=== PATIENT | female | born 1970 | race Caucasian/White ===

== ENCOUNTER 2016-06-27 06:24 | Emergency (ER) | payer OTHER ==
[~2016-06-27] VITALS: Ht 180.3 cm; Wt 78.5 kg
[~2016-06-27 06:24] MED LIST: BCPILLS PO; CALC-279 PO; CHOL100010 PO; CYAN500T PO; FERR1TAB23 PO; LORA-741 PO; NORE1CHW11 PO; OMEG12006 PO; PARO1TAB27 PO; SUCR1TAB29 PO
[2016-06-27 06:30] VITALS: Ht 180.3 cm; Wt 78.5 kg
[2016-06-27] MEDS ORDERED: SODIUM CHLORIDE 0.9% 1000ML 1,000 ML IV STA (06:48)
[2016-06-27] MEDS ORDERED: ONDANSETRON INJ 2 MG/ML 2 ML VIAL IV STA ×2 (06:48→07:24)
[2016-06-27] MEDS ORDERED: SODIUM CHLORIDE 0.9% 1000ML 1,000 ML IV ONE (06:48)
--- NOTE | 2016-06-27 06:49 | EMERGENCY ROOM VISIT NOTE ---
History Report prepared by Cyndiibfrancisco: Charo Baltazar Under the Supervision of: Dr. Salty Gonzales M.D. First contact with patient: 06:38 Chief Complaint: VOMITING Stated Complaint: FLU SYMPTOMS,ACID REFLUX,DEHYDRATION History of Present Illness The patient is a 46 year old female who presents to the Emergency Room with complaints of persistent vomiting that started yesterday. She reports she left work yesterday afternoon around 1630 because she was nauseous. She started vomiting when she got home and also experienced "3 large bowel movements". She reports she didn't eat much yesterday but notes she there was "some red" in her vomit. This morning she dry heaved "several times" and experienced diarrhea. She also complains of a headache, abdominal pain and generalized weakness. She describes her abdominal pain as feeling like "acid reflux", which she has a history of. The patient denies any cough, cold symptoms, chest pain or shortness of breath. She lives alone and denies any recent sick contacts or chance of being . The patient admits to a history of anxiety and states being sick makes her feel increasingly anxious. Source of History: patient Onset: yesterday afternoon Position: abdomen Timing: other (persistent) Associated Symptoms: + abdominal pain, + diarrhea, + nausea, + weakness, No SOB, No chest pain, No cough (cough or cold symptoms) Review of Systems See HPI for pertinent positives & negatives. A total of 10 systems reviewed and were otherwise negative. Past Medical & Surgical Medical Problems: (1) Anxiety (2) Asthma (3) Food poisoning (4) History of panic attacks (5) Kidney stone (6) Reflux Old medical records were reviewed. Nurse's notes were reviewed and I agree with. Family History Diabetes mellitus FH: cancer FH: heart disease FHx: gallbladder disease Hypertension Kidney disease Kidney stones Social History Smoking Status: Never Smoker Alcohol Use: none Drug Use: none Marital Status: single Housing Status: lives alone Occupation Status: employed Current/Historical Medications Scheduled Calcium Carbonate-Vitamin D (Oscal 500/200 D-3), 1 TAB PO DAILY Cholecalciferol (Vitamin D3), 1 TAB PO BID Esomeprazole Magnesium (Nexium), 20 MG PO DAILY Ferrous Sulfate (Iron), 325 MG PO BID Multiple Vitamins W/ Minerals (Womens One Daily), 1 TAB PO DAILY Norethin Acet & Estrad-Fe (Minastrin 24 Fe), 1 TAB PO DAILY Alba-3 Fatty Acids (Alba 3), 1 TAB PO DAILY Ondasetron Odt (Zofran Odt), 4 MG SL Q6H Paroxetine (Paxil), 20 MG PO BID Sucralfate (Carafate), 1 GM PO DAILY Allergies Coded Allergies: Morphine (Verified Allergy, Intermediate, HIVES WITH DOSE FROM ED ON 04/18, 06/27/16) Citalopram (Verified Allergy, Unknown, GI UPSET, 06/27/16) Codeine (Verified Allergy, Unknown, SHAKES AND CHEST PAIN, 06/27/16) Opioid Analgesics (Verified Allergy, Unknown, "OPIATE AGONIST" ALLERGY, 06/27/16) Azithromycin (Verified Adverse Reaction, Unknown, "BELLY PAIN AND FELT WEIRD", 06/27/16) Levofloxacin (Verified Adverse Reaction, Unknown, "FELT WEIRD AND PAIN IN THE LEGS", 06/27/16) Physical Exam Vital Signs Date Time Temp Pulse Resp B/P Pulse Ox O2 Delivery O2 Flow Rate FiO2 06/27/16 11:51 81 18 151/78 96 06/27/16 10:48 87 18 131/75 96 Room Air 06/27/16 09:38 98 119/64 99 Room Air 06/27/16 07:52 84 18 133/77 98 Room Air 06/27/16 06:30 89 20 160/81 94 Room Air Physical Exam General: Moderately ill-appearing middle aged female, complaining of feeling nauseated and vomiting in a bucket on exam Breathing comfortably on room air. Normal speech HEENT: Normal cephalic atraumatic. Pupils are equal round and reactive to light. Extraocular movements are intact. Oropharynx is pink with moist mucous membranes. No swelling of the mouth lips or tongue. Neck: Supple with a midline trachea. No meningeal signs or stiffness, no JVD or bruits. No Stridor. Chest: Clear to auscultation bilaterally. No wheezes or rhonchi. No increased work of breathing. Heart: regular rate and rhythm. Abdomen: Soft nontender, nondistended without rebound guarding or rigidity. Extremities: No cyanosis clubbing or edema. No calf tenderness or assymetry Spine/Back. Non tender to palpation. No CVA tenderness Skin: Good turgor without rashes. Neurologic exam: Cranial nerves two through 12 are intact. Motor and sensation are intact and symmetrical throughout. Medical Decision & Procedures Laboratory Results 06/27/16 07:00 Red Blood Count 4.73, Mean Corpuscular Volume 89.4, Mean Corpuscular Hemoglobin 31.7, Mean Corpuscular Hemoglobin Concent 35.5, Mean Platelet Volume 10.9, Neutrophils (%) (Auto) 77.6, Lymphocytes (%) (Auto) 14.8, Monocytes (%) (Auto) 7.3, Eosinophils (%) (Auto) 0.0, Basophils (%) (Auto) 0.1, Neutrophils # (Auto) 6.80, Lymphocytes # (Auto) 1.30, Monocytes # (Auto) 0.64, Eosinophils # (Auto) 0.00, Basophils # (Auto) 0.01 06/27/16 07:00 Test 06/27/16 07:00 White Blood Count 8.77 K/uL (4.8-10.8) Red Blood Count 4.73 M/uL (4.2-5.4) Hemoglobin 15.0 g/dL (12.0-16.0) Hematocrit 42.3 % (37-47) Mean Corpuscular Volume 89.4 fL (80-100) Mean Corpuscular Hemoglobin 31.7 pg (25-34) Mean Corpuscular Hemoglobin Concent 35.5 g/dl (32-36) Platelet Count 277 K/uL (130-400) Mean Platelet Volume 10.9 fL (7.4-10.4) Neutrophils (%) (Auto) 77.6 % Lymphocytes (%) (Auto) 14.8 % Monocytes (%) (Auto) 7.3 % Eosinophils (%) (Auto) 0.0 % Basophils (%) (Auto) 0.1 % Neutrophils # (Auto) 6.80 K/uL (1.4-6.5) Lymphocytes # (Auto) 1.30 K/uL (1.2-3.4) Monocytes # (Auto) 0.64 K/uL (0.11-0.59) Eosinophils # (Auto) 0.00 K/uL (0-0.5) Basophils # (Auto) 0.01 K/uL (0-0.2) RDW Standard Deviation 40.2 fL (36.4-46.3) RDW Coefficient of Variation 12.3 % (11.5-14.5) Immature Granulocyte % (Auto) 0.2 % Immature Granulocyte # (Auto) 0.02 K/uL (0.00-0.02) Anion Gap 13.0 mmol/L (3-11) Est Creatinine Clear Calc Drug Dose 100.2 ml/min Estimated GFR () 103.9 Estimated GFR (Non- 89.7 BUN/Creatinine Ratio 11.3 (10-20) Calcium Level 8.5 mg/dl (8.5-10.1) Total Bilirubin 0.5 mg/dl (0.2-1) Direct Bilirubin 0.1 mg/dl (0-0.2) Aspartate Amino Transf (AST/SGOT) 20 U/L (15-37) Alanine Aminotransferase (ALT/SGPT) 27 U/L (12-78) Alkaline Phosphatase 88 U/L (45-117) Total Protein 7.6 gm/dl (6.4-8.2) Albumin 3.6 gm/dl (3.4-5.0) Lipase 108 U/L (73-393) Human Chorionic Gonadotropin, Qual NEG (NEG) Laboratory studies as stated above per my review. Medications Administered Medications (Trade) Dose Ordered Sig/Gisel Route Start Time Stop Time Status Last Admin Dose Admin Sodium Chloride 1,000 ml @ 999 mls/hr Q1H1M STAT IV 06/27/16 06:48 06/27/16 07:48 DC 06/27/16 07:02 999 MLS/HR Sodium Chloride (Nss 1000ml) 1,000 ml @ 200 mls/hr Q5H ONCE IV 06/27/16 06:48 06/27/16 11:47 DC 06/27/16 07:52 200 MLS/HR Ondansetron HCl (Zofran Inj) 4 mg NOW STAT IV 06/27/16 06:48 06/27/16 06:50 DC 06/27/16 07:02 4 MG Ondansetron HCl (Zofran Inj) 4 mg NOW STAT IV 06/27/16 07:24 06/27/16 07:25 DC 06/27/16 07:30 4 MG Potassium Chloride (Klor-Con M10) 40 meq NOW STAT PO 06/27/16 11:02 06/27/16 11:04 DC 06/27/16 11:19 40 MEQ Ondansetron HCl (ZOFRAN ODT 4MG Home Pack) 1 [facility] UD ONCE PO 06/27/16 11:15 06/27/16 11:16 DC 06/27/16 11:20 1 [facility] ED Course 0639: Past medical records reviewed. The patient was evaluated in room B8, and a complete history and physical examination were performed. 0648: Zofran 4 mg IV, NSS 1000 ml @ 200 mls/hr IV, NSS 1000 ml @ 999 mls/hr IV. 0724: Zofran 4 mg IV. 0750: I reevaluated the patient. She is feeling anxious and just had an episode of diarrhea. 0825: I reevaluated the patient. She is feeling a little better. 1055: I reevaluated the patient. She is feeling much better. I discussed her results and discharge instructions and she verbalized complete understanding or agreement. 1102: Potassium Chloride 40 meq PO. 1115: Zofran 4 mg 1 home pack PO. Medical Decision Differential Diagnoses: Dehydration, viral illness, gastroenteritis, infection, electrolyte or metabolic abnormalities. This patient comes in as described above. She has had vomiting and diarrhea does not feel well. On exam, she is holding an emesis been and has intermittent vomiting. IV access was established and she was hydrated with a 1 L IV normal saline bolus and 200 mL an hour IV normal saline. She was given Zofran 4 mg IV. Multiple blood testing was obtained. She was reassessed frequently. She did feel better after receiving the fluids and was able to keep down oral fluids. Potassium is mildly low and she was repleted with by mouth potassium. she is encouraged to increase her potassium in her diet. she is to rest and drink plenty of fluids slowly advance her diet. Return if : worsening of symptoms, any new problems or concerns her abdomen remained benign. She's follow-up with regular doctor 1-2 days recheck. She's been with the plan and discharged to home. Impression Primary Impression: Nausea, vomiting, and diarrhea Additional Impression: Gastroenteritis Scribe Attestation The scribe's documentation has been prepared under my direction and personally reviewed by me in its entirety. I confirm that the note above accurately reflects all work, treatment, procedures, and medical decision making performed by me. Departure Information Dispostion Home / Self-Care Prescriptions Ondasetron Odt (ZOFRAN ODT) 4 Mg Tab 4 MG SL Q6H for Nausea, #10 TAB Prov: Salty Gonzales M.D. 06/27/16 Referrals Dorothea Mccoy DO (PCP) Patient Instructions My [facility] Additional Instructions Rest. Drink plenty of fluids. Mild diet. Slowly advance your diet. Use Zofran 4 mg under the tongue every 6 hours if needed for nausea or vomiting May use [id number] Imodium if needed for diarrhea. Do not exceed the over -the-counter dosages Increase her dietary potassium. Eat a few extra bananas Return if: Worsening of symptoms, not tolerating fluids, fever chills, any new problems or concerns. Problem Qualifiers
[2016-06-27 07:12] LABS: BASO % 0.1 %; BASO ABS # 0.01 K/uL (0-0.2); COMPLETE YES; HEMATOCRIT 42.3 % (37-47); IG% 0.2 %; LYMPH % 14.8 %; MEAN CELL VOLUME 89.4 fL (80-100); MEAN CORPUSCULAR HEMOGLOBIN 31.7 pg (25-34); MEAN CORPUSCULAR HGB CONC 35.5 g/dl (32-36); MEAN PLATELET VOLUME 10.9 fL (7.4-10.4); MONO % 7.3 %; NEUT % 77.6 %; PLATELET COUNT 277 K/uL (130-400); RED BLOOD COUNT 4.73 M/uL (4.2-5.4); WHITE BLOOD COUNT 8.77 K/uL (4.8-10.8)
[2016-06-27] MEDS ORDERED: MULT-240 PO (07:17)
[2016-06-27] MEDS ORDERED: CHOL1000 PO (07:17)
[2016-06-27] MEDS ORDERED: CALC200T PO (07:17)
[2016-06-27] MEDS ORDERED: ESOM20CA PO (07:17)
[2016-06-27 07:34] LABS: PREG INTERNAL NEGATIVE QC NEG CLEAR BACKGROUND; PREG INTERNAL POSITIVE QC POS CONTROL LINE
[2016-06-27 07:37] LABS: BUN/CREATININE RATIO 11.3 (10-20); CALCIUM 8.5 mg/dl (8.5-10.1); CREATININE 0.8 mg/dl (0.60-1.20); POTASSIUM 2.9 mmol/L (3.5-5.1)
[2016-06-27] MEDS ORDERED: POTASSIUM CHLORIDE 10 MEQ TABCR PO STA (11:02)
[2016-06-27] MEDS ORDERED: ONDA4TAB10 SL (11:05)
[2016-06-27] MEDS ORDERED: ONDANSETRON HOME PACK 4MG OD TAB PO ONE (11:15)
[2016-06-27 11:51] VITALS: BP 151/78; PULSE 81; O2SAT 96
== END 2016-06-27 11:52 | disposition home or self-care (01) ==
LOC: C.EDB 06:26
DX: R11.2 Nausea with vomiting, unspecified (principal); K52.9 Noninfective gastroenteritis and colitis, unspecified; J45.909 Unspecified asthma, uncomplicated

== ENCOUNTER → 2016-07-13 | Outpatient (CLI) | payer OTHER ==
[~2016-07-13] MED LIST changes: -BCPILLS PO; -CALC-279 PO; +CALC200T PO; +CHOL1000 PO; -CHOL100010 PO; -CYAN500T PO; +ESOM20CA PO; -LORA-741 PO; +MULT-240 PO; +ONDA4TAB10 SL
[2016-07-13 09:49] LABS: BLOOD UREA NITROGEN 9 mg/dl (7-18); BUN/CREATININE RATIO 12.3 (10-20); CALCIUM 9.3 mg/dl (8.5-10.1); CARBON DIOXIDE 30 mmol/L (21-32); CHLORIDE 103 mmol/L (98-107); CREATININE 0.74 mg/dl (0.60-1.20); GLUCOSE 94 mg/dl (70-99); MAGNESIUM 2.1 mg/dl (1.8-2.4); SODIUM 142 mmol/L (136-145)
[2016-07-13 10:13] LABS: CHOLESTEROL/HDL RATIO 5.5
== END | disposition home or self-care (01) ==
LOC: C.LAB1850 06:51
PROVIDERS: ATTEND Family Medicine
DX: F32.9 Major depressive disorder, single episode, unspecified (principal); F41.9 Anxiety disorder, unspecified; K21.0 Gastro-esophageal reflux disease with esophagitis; E55.9 Vitamin D deficiency, unspecified; E78.00 Pure hypercholesterolemia, unspecified; E53.8 Deficiency of other specified B group vitamins

== ENCOUNTER → 2016-07-29 | Outpatient (CLI) | payer OTHER ==
--- NOTE | 2016-07-30 13:16 | MAMMOGRAPHY REPORT ---
BILATERAL DIGITAL SCREENING MAMMOGRAM TOMOSYNTHESIS WITH CAD: 07/29/2016 CLINICAL HISTORY: Routine screening examination. TECHNIQUE: Breast tomosynthesis in addition to standard 2D mammography was performed. Current study was also evaluated with a Computer Aided Detection (CAD) system. COMPARISON: Comparison is made to exams dated: 07/29/2015 mammogram, 07/26/2014 mammogram, 06/26/2013 roma mogram, and 06/24/2012 mammogram - [facility]. BREAST COMPOSITION: There are scattered areas of fibroglandular density in both breasts. FINDINGS: The parenchymal pattern is similar to prior exams with stable asymmetry in the subareolar right breast. No new suspicious mass, architectural distortion or cluster of microcalcifications is seen. IMPRESSION: ACR BI-RADS CATEGORY 1: NEGATIVE There is no mammographic evidence of malignancy. A 1 year screening mammogram is recommended. The p atient will receive written notification of the results. Approximately 10% of breast cancers are not detected with mammography. A negative mammographic repor t should not delay biopsy if a clinically suggestive mass is present. Aurea Cardoso M.D. ay/:07/29/2016 16:09:26 Custom Tailor Apprentice: Cyndi PRASAD(R)(M), [facility] letter sent: Normal 1/2 BI-RADS Code: ACR BI-RADS Category 1: Negative
== END | disposition home or self-care (01) ==
LOC: C.MAMM 15:35
PROVIDERS: ATTEND Obstetrics & Gynecology
DX: Z12.31 Encounter for screening mammogram for malignant neoplasm of breast (principal)

== ENCOUNTER → 2016-08-19 | Outpatient (CLI) | payer OTHER | END | disposition home or self-care (01) | LOC: C.PAPS 11:40 | PROVIDERS: ATTEND Obstetrics & Gynecology | DX: Z12.4 Encounter for screening for malignant neoplasm of cervix (principal); R87.616 Satisfactory cervical smear but lacking transformation zone; Z87.42 Personal history of other diseases of the female genital tract ==

== ENCOUNTER → 2017-01-01 | Outpatient (CLI) | payer OTHER ==
[~2017-01-01] MED LIST changes: -ONDA4TAB10 SL
[2017-01-01 09:30] LABS: BASO % 0.3 %; BASO ABS # 0.02 K/uL (0-0.2); COMPLETE YES; EOS % 1.3 %; HEMATOCRIT 40.1 % (37-47); IG% 0.2 %; LYMPH % 32.4 %; LYMPH ABS # 2.02 K/uL (1.2-3.4); MEAN CELL VOLUME 91.6 fL (80-100); MEAN CORPUSCULAR HGB CONC 34.9 g/dl (32-36); MEAN PLATELET VOLUME 10.7 fL (7.4-10.4); MONO % 7.7 %; NEUT % 58.1 %; PLATELET COUNT 272 K/uL (130-400); RED BLOOD COUNT 4.38 M/uL (4.2-5.4); WHITE BLOOD COUNT 6.23 K/uL (4.8-10.8)
[2017-01-01 09:44] LABS: ALT/SGPT 20 U/L (12-78); BLOOD UREA NITROGEN 11 mg/dl (7-18); BUN/CREATININE RATIO 14.7 (10-20); CARBON DIOXIDE 30 mmol/L (21-32); CHLORIDE 105 mmol/L (98-107); CHOLESTEROL 180 mg/dl (0-200); CREATININE 0.74 mg/dl (0.60-1.20); GLUCOSE 92 mg/dl (70-99); POTASSIUM 3.9 mmol/L (3.5-5.1); SODIUM 140 mmol/L (136-145); TRIGLYCERIDES 150 mg/dl (0-150); VERY LOW DENSITY LIPOPROT CALC 30 mg/dl
[2017-01-01 09:55] LABS: ALB/GLOB RATIO 0.9 (0.9-2); ALKALINE PHOSPHATASE 66 U/L (45-117); AST/SGOT 16 U/L (15-37); CHOLESTEROL/HDL RATIO 4.1; HDL CHOLESTEROL 44 mg/dl; LDL CHOLESTEROL CALCULATED 106 mg/dl
== END | disposition home or self-care (01) ==
LOC: C.LAB1850 07:01
PROVIDERS: ATTEND Family Medicine
DX: F32.9 Major depressive disorder, single episode, unspecified (principal); K21.0 Gastro-esophageal reflux disease with esophagitis; E55.9 Vitamin D deficiency, unspecified; E78.00 Pure hypercholesterolemia, unspecified; E53.8 Deficiency of other specified B group vitamins

== ENCOUNTER → 2017-07-08 | Outpatient (CLI) | payer OTHER | END | disposition home or self-care (01) | LOC: C.PAPS 09:48 | PROVIDERS: ATTEND Obstetrics & Gynecology | DX: Z01.419 Encounter for gynecological examination (general) (routine) without abnormal findings (principal) ==

== ENCOUNTER → 2017-07-30 | Outpatient (CLI) | payer OTHER ==
--- NOTE | 2017-08-02 15:17 | MAMMOGRAPHY REPORT ---
BILATERAL DIGITAL SCREENING MAMMOGRAM TOMOSYNTHESIS WITH CAD: 07/30/2017 CLINICAL HISTORY: Routine screening. Patient has no complaints. TECHNIQUE: Breast tomosynthesis in addition to standard 2D mammography was performed. Current study was also evaluated with a Computer Aided Detection (CAD) system. COMPARISON: Comparison is made to exams dated: 07/29/2016 mammogram, 07/29/2015 mammogram, 06/26/2013 mamm ogram, 07/26/2014 mammogram, and 06/24/2012 mammogram - [facility]. BREAST COMPOSITION: There are scattered areas of fibroglandular density in both breasts. FINDINGS: No suspicious masses, calcifications, or areas of architectural distortion are noted in ei ther breast. There has been no significant interval change compared to prior exams. IMPRESSION: ACR BI-RADS CATEGORY 1: NEGATIVE There is no mammographic evidence of malignancy. A 1 year screening mammogram is recommended. The pa tient will receive written notification of the results. Approximately 10% of breast cancers are not detected with mammography. A negative mammographic report should not delay biopsy if a clinically suggestive mass is present. Stephania Baker M.D. /:07/30/2017 16:31:20 Dish Maker: Cyndi BURT)(Vivienne), [facility] letter sent: Normal 1/2 BI-RADS Code: ACR BI-RADS Category 1: Negative
== END | disposition home or self-care (01) ==
LOC: C.MAMM 15:52
PROVIDERS: ATTEND Obstetrics & Gynecology
DX: Z12.31 Encounter for screening mammogram for malignant neoplasm of breast (principal)

== ENCOUNTER 2022-08-17 05:28 | Observation (INO) ==
[2022-08-17 06:25] LABS: Basophils # (auto) 0.04 K/uL (0-0.2); Basophils % (auto) 0.6 %; Eosinophils # (auto) 0.04 K/uL (0-0.50); Eosinophils % (auto) 0.6 %; Hematocrit (blood only) 41.8 % (37.0-47.0); Hemoglobin 14.6 g/dl (12.0-16.0); Immature Granulocytes # (auto) 0.02 K/uL (0.01-0.20); Immature Granulocytes % (auto) 0.3 %; Lymphocytes # (auto) 1.61 K/uL (1.2-3.4); Lymphocytes % (auto) 25.7 %; Mean Corpuscular Hemoglobin 30.7 pg (25.0-34.0); Mean Corpuscular Hgb Conc 34.9 g/dL (32.0-36.0); Mean Platelet Volume 10.9 fL (9.4-12.4); Monocytes # (auto) 0.37 K/uL (0.11-0.59); Monocytes % (auto) 5.9 %; Neutrophils # (auto) 4.18 K/uL (1.40-6.50); Neutrophils % (auto) 66.9 %; Platelet Count 315 K/uL (130-400); RDW Coefficient of Variation 11.8 % (11.5-14.5); RDW Standard Deviation 37.9 fL (36.4-46.3); Red Blood Count 4.75 M/uL (4.20-5.40); White Blood Count 6.26 K/ul (4.8-10.8)
[2022-08-17 06:42] LABS: Albumin Globulin Ratio 1.5 (0.9-2); Albumin Level 4.5 gm/dl (3.4-5.0); BUN Creatinine Ratio 9.1 (10-20); Bilirubin,Total 0.7 mg/dl (0.2-1.0); Calcium 9.4 mg/dl (8.6-10.3); Creatinine Clr Calc Pharmacy 98.9 ml/min; Est GFR (African American) 104.3 ml/min; Potassium 3.2 mmol/L (3.5-5.1); Pregnancy Test, Serum Negative (Negative); Total Protein 7.5 gm/dl (6.0-8.3)
--- NOTE | 2022-08-17 06:52 | CT Scan Report ---
CT SCAN OF THE BRAIN WITHOUT IV CONTRAST CLINICAL HISTORY: Headache. Nausea. COMPARISON STUDY: No priors. TECHNIQUE: Unenhanced axial CT scan of the brain is performed from the vertex to the skull base. A d ose lowering technique was utilized adhering to the principles of ALARA. CT DOSE: 614.27 mGy.cm FINDINGS: Brain parenchyma: The brain parenchyma is normal in appearance. There is no hemorrhage, mass effect, or evidence of acute territorial ischemia by CT criteria. Alexander-white matter differentiation is preser mukesh. No extra-axial fluid collection is seen. Ventricles, sulci, cisterns: Normal in configuration. Intracranial vasculature: The visualized intracranial vasculature at the skull base is normal in appe arance. Calvarium: Unremarkable. Sinuses and mastoids: The visualized paranasal sinuses are clear. The mastoid air cells are well pneu matized. Orbits: The bony orbits are grossly intact. IMPRESSION: No acute intracranial abnormality. ACT 112: Negative or not required by law. Electronically signed by: Jaison Montana M.D. 08/17/2022 6:50 AM
[2022-08-17] MEDS ORDERED: PROCHLORPERAZINE 2 ML IV ONE (07:23)
[2022-08-17] MEDS ORDERED: SODIUM CHLORIDE 0.9% 1000ML 1,000 ML IV ONE (07:23)
[2022-08-17] MEDS ORDERED: KETOROLAC TROMETHAMINE 15 MG/ML VIAL IV ONE (07:23)
[2022-08-17] MEDS ORDERED: diphenhydrAMINE 50 MG/ML VIAL IV STA (07:23)
--- NOTE | 2022-08-17 07:28 | Emergency Department Note ---
Impression & Plan Dissection of vertebral artery, Headache ED Provider Note NAME: MICHELA HIDALGO AGE: 52 SEX: F : 1970 ARRIVES VIA: Walk-In INFORMANT: Patient ED PROVIDER(S): Kash Carson DO CHIEF COMPLAINT: Headache HPI: Patient is a 52-year-old female who presents to the headache. She notes that this started about 6 weeks ago when she stopped her Paxil. Patient describes it as a intermittent throbbing, sharp stabbing, and achy pain. It is very variable. Headache is generally on the left side but also vast majority of time diffuse over the whole head. Sound does make it worse. She admits to some nausea and vomiting. She notes the headache is there every day and comes and goes in intensity. Yesterday and today have been the worst. It did improve/resolve yesterday and then came back again today. No dysuria, urgency, or frequency. No other exacerbating or remitting factors. No chest pain or shortness of breath. PAST MEDICAL HISTORY:See Below PAST SURGICAL HISTORY:See Below FAMILY HISTORY:See Below SOCIAL HISTORY:See Below HOME MEDICATIONS:See Below ALLERGIES:See Below VITALS:See Below PHYSICAL EXAMINATION: GENERAL: Sitting up in bed, alert, well appearing, well nourished, no distress, non-toxic EYE EXAM: normal conjunctiva. OROPHARYNX: no exudate, no erythema, lips, buccal mucosa, and tongue normal and mucous membranes are moist NECK: supple, no nuchal rigidity, no adenopathy, non-tender LUNGS: Clear to auscultation. Normal chest wall mechanics HEART: no murmurs, S1 normal and S2 normal ABDOMEN: abdomen soft, non-tender, normo-active bowel sounds, no masses, no rebound or guarding. UPPER EXTREMITIES: upper extremities are grossly normal. LOWER EXTREMITIES: No pitting edema. NEURO EXAM: Normal sensorium, cranial nerves II-XII intact, normal speech, no weakness of arms, no weakness of legs. No drift. Finger to nose intact. Gross sensation intact. MEDICAL DECISION MAKING: Patient is a 52-year-old female who presents ER for headache. IV was established blood work was obtained. Labs show no significant leukocytosis or anemia. BMP with mild hypokalemia 3.2. LFTs bilirubin was unremarkable. hCG was negative. COVID was negative. 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 This is of age-indeterminate chronicity. As the patient is symptomatic although has symptoms for the past 6 weeks did discuss with neurology Dr. Perry. He recommended loading dose of Plavix and aspirin and admission for further evaluation including MRIs. I discussed the case with the hospitalist Dr. Fazal Houston for further evaluation management and treatment. Patient denied any bleeding risk factors. Was updated and admitted for further work-up. Triage Nursing notes reviewed. Limited review of prior medical records performed Vital Signs: reviewed and remarkable for tachy Differential diagnosis: Differential Diagnosis includes but is not limited to headache, tension headache, cluster headache, migraine, subarachnoid hemorrhage, meningitis, mass, central venous thrombus, concussion, trauma and epidural/subdural hemorrhage. ER treatment provided: See below Diagnostics interpreted by me include EKG and cardiac monitoring as listed below: -Cardiac Monitoring: An order was placed for continuous cardiac monitoring. The monitor shows a rate of 101 with sinus rhythm. -ECG: none -Laboratory studies:Interpreted by me as stated above in MDM and shown below. Imaging studies: Xrays: As interpreted by me:none CT of the head per my read shows no obvious large bleed CTs show: CT angio of the head and neck shows a right internal carotid dissection Consultation(s): Discussed with neurology as described above who recommended loading dose of aspirin and Plavix and admission. Discussed with the hospitalist for further evaluation management and treatment Procedures:none Critical Care: None Past Med/Surg History Medical History (Updated 08/17/22 @ 13:07 by Kash Carson DO) Anxiety Arthralgia of multiple sites Asthma HX OF (NO PROBLEM NOW) C. difficile colitis resolved > from food poisioning Chronic constipation Chronic rhinitis Chronic sinusitis Degenerative disc disease LUMBAR AREA Depression GERD (gastroesophageal reflux disease) High blood triglycerides History of IBS Hypercholesterolemia Hypothyroidism Kidney stone pt unaware Panic disorder with agoraphobia Renal cyst no further check up Temporomandibular joint disorder just gets pain no locking Surgical History History of cholecystectomy History of colonoscopy History of endoscopic sinus surgery History of esophagogastroduodenoscopy (EGD) History of nasal septoplasty Hx of LASIK Family History Mother Family history of diabetes mellitus Arthritis Diabetes Father Family history of diabetes mellitus Diabetes Kidney disease Brother Family history of diabetes mellitus Diabetes Grandfather (Paternal) Family history of diabetes mellitus Grandfather (Maternal) Family hx colonic polyps Uncle Myocardial infarction Aunt Myocardial infarction Coronary heart disease Grandmother Breast cancer Sister No problems noted. Sister No problems noted. Denies family history of Ovarian cancer Prostate cancer Colorectal cancer Social History (Updated 08/10/22 @ 16:21 by Prema Vega LPN) Smoking Status: Never smoker Second Hand Exposure: No; Hx Alcohol Use: No Hx Substance Use: No Preferred Language: Faroese Communication Ability: Effective Visual Impairment: No Limitations Hearing Ability: Normal Director Of Publications Required: No Beliefs That Will Affect Care: None marital status: Single Current Living Situation: Alone current occupational status: employed current occupation: [employer] Feels Safe at Home: Yes Childhood Exposure to Second-Hand Smoke: No caffeine: No during the past year weight has: remained stable Dental Care, Regularly: Yes Physical Activity Frequency: Daily Seatbelt Use: sometimes Sunscreen Use: Yes Assistive Devices: None Allergies Allergies Allergy/AdvReac Type Severity Reaction Status Date / Time azithromycin Allergy Intermediate Gastrointestinal Verified 08/11/22 15:31 Upset codeine Allergy Intermediate SHAKES AND Verified 08/11/22 15:31 CHEST PAIN morphine Allergy Intermediate HIVES WITH Verified 08/11/22 15:31 DOSE FROM ED ON 04/18/10 citalopram Allergy Mild GI UPSET Verified 08/11/22 15:31 cat dander Allergy Verified 08/11/22 15:31 levofloxacin AdvReac Unknown "FELT Verified 08/11/22 15:31 WEIRD AND PAIN IN THE LEGS" Opioid Analgesics Allergy Unknown SHAKING Uncoded 08/11/22 15:31 ALL OVER, GI UPSET Home Meds Home Medications Medication Instructions Recorded Confirmed calcium carbonate 500 mg-vitamin 1 tab PO HS 09/13/18 08/17/22 D3 5 mcg (200 unit) tablet (Os-Ignacio 500 + D3) cholecalciferol (vitamin D3) 25 1,000 unit PO BID 09/13/18 08/17/22 mcg (1,000 unit) tablet (Vitamin D3) cyanocobalamin (vitamin B-12) 500 500 mcg PO BID 09/13/18 08/17/22 mcg tablet ferrous sulfate 325 mg (65 mg 325 mg PO HS 09/13/18 08/17/22 iron) tablet (iron) multivitamin 1 tab PO QAM 09/13/18 08/17/22 omega 3 350 mg-dha 235 mg-epa 90 1 cap PO HS 09/13/18 08/17/22 mg-fish oil 597 mg capsule,delay rel (York-3) cetirizine [24Hour Allergy] 1 tab PO DAILY 08/10/22 08/17/22 Previous Rx's Medication Instructions Recorded folic acid 400 mcg tablet 0.4 mg PO DAILY #30 tabs 03/11/22 ondansetron HCl 4 mg tablet 4 mg PO Q6H PRN nausea and 06/11/22 vomiting #20 tabs lorazepam 0.5 mg tablet 0.5 mg PO BID PRN anxiety #60 tabs 06/18/22 norethindrone 1 mg-ethinyl 1 tab PO DAILY #84 tabs 08/10/22 estradiol 20 mcg (24)-iron 75 mg (4) tablet buspirone 7.5 mg tablet 7.5 mg PO BID #110 tabs 08/12/22 Results & Data (ED) Vital Signs Vital Signs - 24 hr 08/17/22 05:37 08/17/22 08:00 08/17/22 10:00 Temperature 36.5 C Temperature Source Temporal Artery Scan Pulse Rate 105 H Pulse Rate [Finger] 65 69 Pulse Rhythm [Finger] Regular Respiratory Rate 16 16 16 Respiratory Effort / Characteristics Non-Labored Non-Labored Respiratory Depth Normal Normal Blood Pressure 132/86 Blood Pressure [Left Arm] 150/77 H 120/87 Blood Pressure Mean 101 Blood Pressure Mean [Left Arm] 101 98 Pulse Oximetry 96 99 99 Oxygen Delivery Method Room Air Room Air Sepsis Recent Fever Within 48 Hours Yes Sepsis New/Unexplained Change in Mental Status No Sepsis Action Taken by Nursing No Action Required Laboratory Data 08/17/22 05:55 08/17/22 05:55 Lab Results 08/17/22 08/17/22 08/17/22 Range/Units 05:55 05:55 05:55 WBC 6.26 (4.8-10.8) K/ul RBC 4.75 (4.20-5.40) M/uL Hgb 14.6 (12.0-16.0) g/dl Hct 41.8 (37.0-47.0) % MCV 88.0 (80.0-100.0) fL MCH 30.7 (25.0-34.0) pg MCHC 34.9 (32.0-36.0) g/dL RDW Std Deviation 37.9 (36.4-46.3) fL RDW Coeff of Remi 11.8 (11.5-14.5) % Plt Count 315 (130-400) K/uL MPV 10.9 (9.4-12.4) fL Immature Gran % (Auto) 0.3 % Neut % (Auto) 66.9 % Lymph % (Auto) 25.7 % Lamar % (Auto) 5.9 % Eos % (Auto) 0.6 % Baso % (Auto) 0.6 % Neut # (Auto) 4.18 (1.40-6.50) K/uL Lymph # (Auto) 1.61 (1.2-3.4) K/uL Lamar # (Auto) 0.37 (0.11-0.59) K/uL Eos # (Auto) 0.04 (0-0.50) K/uL Baso # (Auto) 0.04 (0-0.2) K/uL Immature Gran # (Auto) 0.02 (0.01-0.20) K/uL ESR (0-30) mm/hr Sodium 140 (136-145) mmol/L Potassium 3.2 L (3.5-5.1) mmol/L Chloride 101 (98-107) mmol/L Carbon Dioxide 28 (21-32) mmol/L Anion Gap 11 (3-11) BUN 7 (6-23) mg/dl Creatinine 0.77 (0.6-1.2) mg/dl Est Cr Clr Drug Dosing 98.9 ml/min Est GFR ( Amer) 104.3 ml/min Est GFR (Non-Af Amer) 90.0 ml/min BUN/Creatinine Ratio 9.1 L (10-20) Glucose 111 H (70-99(Fasting)) mg/dl Calcium 9.4 (8.6-10.3) mg/dl Total Bilirubin 0.7 (0.2-1.0) mg/dl AST 23 (13-39) U/L ALT 31 (7-52) U/L Alkaline Phosphatase 65 (34-104) U/L C-Reactive Protein 0.59 H (0-0.5) mg/dl Total Protein 7.5 (6.0-8.3) gm/dl Albumin 4.5 (3.4-5.0) gm/dl Globulin 3.0 (2.5-4.0) gm/dl Albumin/Globulin Ratio 1.5 (0.9-2) HCG, Qual Negative (Negative) SARS-CoV-2, RNA, NAAT (NEGATIVE) 08/17/22 08/17/22 08/17/22 Range/Units 05:55 05:55 09:11 WBC (4.8-10.8) K/ul RBC (4.20-5.40) M/uL Hgb (12.0-16.0) g/dl Hct (37.0-47.0) % MCV (80.0-100.0) fL MCH (25.0-34.0) pg MCHC (32.0-36.0) g/dL RDW Std Deviation (36.4-46.3) fL RDW Coeff of Remi (11.5-14.5) % Plt Count (130-400) K/uL MPV (9.4-12.4) fL Immature Gran % (Auto) % Neut % (Auto) % Lymph % (Auto) % Lamar % (Auto) % Eos % (Auto) % Baso % (Auto) % Neut # (Auto) (1.40-6.50) K/uL Lymph # (Auto) (1.2-3.4) K/uL Lamar # (Auto) (0.11-0.59) K/uL Eos # (Auto) (0-0.50) K/uL Baso # (Auto) (0-0.2) K/uL Immature Gran # (Auto) (0.01-0.20) K/uL ESR 12 (0-30) mm/hr Sodium (136-145) mmol/L Potassium (3.5-5.1) mmol/L Chloride (98-107) mmol/L Carbon Dioxide (21-32) mmol/L Anion Gap (3-11) BUN (6-23) mg/dl Creatinine (0.6-1.2) mg/dl Est Cr Clr Drug Dosing ml/min Est GFR ( Amer) ml/min Est GFR (Non-Af Amer) ml/min BUN/Creatinine Ratio (10-20) Glucose (70-99(Fasting)) mg/dl Calcium (8.6-10.3) mg/dl Total Bilirubin (0.2-1.0) mg/dl AST (13-39) U/L ALT (7-52) U/L Alkaline Phosphatase (34-104) U/L C-Reactive Protein Cancelled (0-0.5) mg/dl Total Protein (6.0-8.3) gm/dl Albumin (3.4-5.0) gm/dl Globulin (2.5-4.0) gm/dl Albumin/Globulin Ratio (0.9-2) HCG, Qual (Negative) SARS-CoV-2, RNA, NAAT NEGATIVE (NEGATIVE) Administered Medications Lactated Ringer's (Lr) 1,000 mls @ 125 mls/hr IV .Q8H MIRNA Stop: 08/17/22 19:47 Last Admin: 08/17/22 12:21 Dose: 125 mls/hr Documented By: CARLOS Discontinued Medications Aspirin (Aspirin Chew 324 Mg) 324 mg PO NOW STA Stop: 08/17/22 09:29 Last Admin: 08/17/22 09:44 Dose: 324 mg Documented By: CORINNA Clopidogrel Bisulfate (Clopidogrel Bisulfate 300 Mg Tab) 300 mg PO NOW STA Stop: 08/17/22 09:29 Last Admin: 08/17/22 09:44 Dose: 300 mg Documented By: CORINNA Diphenhydramine HCl (Diphenhydramine 50 Mg/Ml Vial) 50 mg IV NOW STA Stop: 08/17/22 07:24 Last Admin: 08/17/22 07:31 Dose: 50 mg Documented By: CORINNA Sodium Chloride (Nss 1000ml) 1,000 mls @ 999 mls/hr IV .Q1H1M ONE Stop: 08/17/22 08:23 Last Infusion: 08/17/22 08:26 Dose: 0 mls/hr Documented By: Admin: 08/17/22 07:29 Dose: 999 mls/hr Documented By: CORINNA Prochlorperazine (Compazine) 2 mls @ 1 mls/min IV ONE ONE Stop: 08/17/22 07:24 Last Admin: 08/17/22 07:33 Dose: 1 mls/min Documented By: CORINNA Ioversol (Optiray 320 500ml) 120 ml IV ONCE ONE Stop: 08/17/22 07:53 Last Admin: 08/17/22 07:53 Dose: 120 ml Documented By: LATRICE Ketorolac Tromethamine (Ketorolac Tromethamine 15 Mg/Ml Vial) 15 mg IV NOW ONE Stop: 08/17/22 07:24 Last Admin: 08/17/22 07:32 Dose: 15 mg Documented By: CORINNA Imaging Data Radiologist's Impression: Head CT 08/17/22 06:15 CT SCAN OF THE BRAIN WITHOUT IV CONTRAST CLINICAL HISTORY: Headache. Nausea. COMPARISON STUDY: No priors. TECHNIQUE: Unenhanced axial CT scan of the brain is performed from the vertex to the skull base. A dose lowering technique was utilized adhering to the principles of ALARA. CT DOSE: 614.27 mGy.cm FINDINGS: Brain parenchyma: The brain parenchyma is normal in appearance. There is no hemorrhage, mass effect, or evidence of acute territorial ischemia by CT criteria. Alexander-white matter differentiation is preserved. No extra-axial fluid collection is seen. Ventricles, sulci, cisterns: Normal in configuration. Intracranial vasculature: The visualized intracranial vasculature at the skull base is normal in appearance. Calvarium: Unremarkable. Sinuses and mastoids: The visualized paranasal sinuses are clear. The mastoid air cells are well pneumatized. Orbits: The bony orbits are grossly intact. IMPRESSION: No acute intracranial abnormality. ACT 112: Negative or not required by law. Electronically signed by: Jaison Montana M.D. 08/17/2022 6:50 AM Head CTA 08/17/22 07:23 CT ANGIOGRAM OF THE BRAIN; CT ANGIOGRAM OF THE NECK CLINICAL HISTORY: Headache. Nausea. COMPARISON STUDY: Unenhanced CT of the brain performed the same day 08/17/2022. TECHNIQUE: Following the IV administration of 120 of Optiray 320, CT angiogram of the head and neck was performed from the aortic arch to the vertex. Images are reviewed in the axial, sagittal, and coronal planes. 3-D MIPS images are created and assessed. IV contrast was administered without complication. All measurements were calculated based on NASCET criteria. A dose lowering technique was utilized adhering to the principles of ALARA. CT DOSE: 558.28 mGy.cm FINDINGS: Brain parenchyma: The brain parenchyma is normal in appearance. There is no evidence of hemorrhage, mass effect, or acute territorial ischemia noting angiographic phase technique. There is no evidence of enhancing mass lesion on the angiogram phase images. The ventricles, sulci, and cisterns are normal in configuration. Alexander-white matter differentiation is preserved. No extra-axial fluid collection is seen. Thoracic aorta: Visualized portions of the thoracic aorta are normal in caliber. The aortic arch demonstrates standard 3-vessel anatomy. Right carotid arterial system: The right common carotid artery is widely patent, as are the right internal and external carotid arteries. Left carotid arterial system: The left common carotid artery is widely patent, as are the left internal and external carotid arteries. Vertebral arteries: The vertebral arteries are patent bilaterally and codominant. 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 This originates at the level of C6 as seen on image #195 and extends superiorly to the level of C3 as seen on image #262. Both lumens are patent. Both vertebral arteries are difficult to visualize at the level of C2, likely related to artifact. Subclavian arteries: Widely patent bilaterally. Intracranial vasculature: The internal carotid arteries are patent at the skull base, as are the anterior and middle cerebral arteries bilaterally. The vertebrobasilar system and posterior cerebral arteries are widely patent. The vertebral arteries are codominant. There is origin of the right posterior cerebral artery. There is no aneurysm, high-grade stenosis, or focal vessel cut off seen throughout the intracranial circulation. Jugular veins: Patent bilaterally. Dural sinuses: Patent. Lung apices: Partially visualized upper lobe lung parenchyma appears clear. Soft tissues: The visualized pharyngeal soft tissues are normal in appearance noting angiographic phase technique. The oropharyngeal airway appears widely patent. The salivary and thyroid glands are normal in appearance. No cervical lymphadenopathy is seen. Skeletal structures: The calvarium appears intact. The cervical spine is within normal limits. Orbits: The bony orbits are intact. Orbital contents are normal as visualized. Sinuses and mastoids: The paranasal sinuses are clear. The mastoid air cells are well pneumatized. IMPRESSION: 1. There is no evidence of hemorrhage, mass effect, or acute territorial ischemia noting angiographic phase technique. 2. Unremarkable CT angiogram of the brain. 3. 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 Both lumens are patent and this is of indeterminant chronicity. 4. Otherwise unremarkable CT angiogram of the neck. ACT 112: Negative or not required by law. Electronically signed by: Jaison Montana M.D. 08/17/2022 8:14 AM Neck CTA 08/17/22 07:23 CT ANGIOGRAM OF THE BRAIN; CT ANGIOGRAM OF THE NECK CLINICAL HISTORY: Headache. Nausea. COMPARISON STUDY: Unenhanced CT of the brain performed the same day 08/17/2022. TECHNIQUE: Following the IV administration of 120 of Optiray 320, CT angiogram of the head and neck was performed from the aortic arch to the vertex. Images are reviewed in the axial, sagittal, and coronal planes. 3-D MIPS images are created and assessed. IV contrast was administered without complication. All measurements were calculated based on NASCET criteria. A dose lowering technique was utilized adhering to the principles of ALARA. CT DOSE: 558.28 mGy.cm FINDINGS: Brain parenchyma: The brain parenchyma is normal in appearance. There is no evidence of hemorrhage, mass effect, or acute territorial ischemia noting angiographic phase technique. There is no evidence of enhancing mass lesion on the angiogram phase images. The ventricles, sulci, and cisterns are normal in configuration. Alexander-white matter differentiation is preserved. No extra-axial fluid collection is seen. Thoracic aorta: Visualized portions of the thoracic aorta are normal in caliber. The aortic arch demonstrates standard 3-vessel anatomy. Right carotid arterial system: The right common carotid artery is widely patent, as are the right internal and external carotid arteries. Left carotid arterial system: The left common carotid artery is widely patent, as are the left internal and external carotid arteries. Vertebral arteries: The vertebral arteries are patent bilaterally and codominant. 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 This originates at the level of C6 as seen on image #195 and extends superiorly to the level of C3 as seen on image #262. Both lumens are patent. Both vertebral arteries are difficult to visualize at the level of C2, likely related to artifact. Subclavian arteries: Widely patent bilaterally. Intracranial vasculature: The internal carotid arteries are patent at the skull base, as are the anterior and middle cerebral arteries bilaterally. The vertebrobasilar system and posterior cerebral arteries are widely patent. The vertebral arteries are codominant. There is origin of the right posterior cerebral artery. There is no aneurysm, high-grade stenosis, or focal vessel cut off seen throughout the intracranial circulation. Jugular veins: Patent bilaterally. Dural sinuses: Patent. Lung apices: Partially visualized upper lobe lung parenchyma appears clear. Soft tissues: The visualized pharyngeal soft tissues are normal in appearance noting angiographic phase technique. The oropharyngeal airway appears widely patent. The salivary and thyroid glands are normal in appearance. No cervical lymphadenopathy is seen. Skeletal structures: The calvarium appears intact. The cervical spine is within normal limits. Orbits: The bony orbits are intact. Orbital contents are normal as visualized. Sinuses and mastoids: The paranasal sinuses are clear. The mastoid air cells are well pneumatized. IMPRESSION: 1. There is no evidence of hemorrhage, mass effect, or acute territorial ischemia noting angiographic phase technique. 2. Unremarkable CT angiogram of the brain. 3. 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 Both lumens are patent and this is of indeterminant chronicity. 4. Otherwise unremarkable CT angiogram of the neck. ACT 112: Negative or not required by law. Electronically signed by: Jaison Montana M.D. 08/17/2022 8:14 AM Brain MRI 08/17/22 10:22 MRI OF THE BRAIN WITHOUT IV CONTRAST CLINICAL HISTORY: Headache. Vertebral artery dissection. COMPARISON STUDY: CT of the brain dated 08/17/2022. TECHNIQUE: MRI of the brain was performed utilizing various T1 and T2-weighted sequences in the axial, sagittal, and coronal planes. IV contrast was not administered for this examination. FINDINGS: Brain parenchyma: There is minimal microangiopathic change. The brain parenchyma is otherwise normal in appearance. There is no hemorrhage or mass effect. There is no restricted diffusion to suggest acute ischemia. Alexander-white matter differentiation is preserved. No extra-axial fluid collection is seen. The cerebellar tonsils are normal in configuration. Ventricles, sulci, and cisterns: Normal in configuration. Pituitary and sella: Unremarkable. Intracranial vasculature: Normal flow voids are maintained at the skull base. Orbits: The bony orbits are grossly intact. Orbital contents are normal in appearance. Sinuses and mastoids: Clear. Calvarium: Unremarkable. Cervical cord: Partially visualized cervical spinal cord is normal in morphology and signal intensity. IMPRESSION: No acute intracranial abnormality. ACT 112: Negative or not required by law. Electronically signed by: Jaison Montana M.D. 08/17/2022 12:17 PM Discharge Plan Visit Data Chief Complaint: Headache Stated Complaint: MIGRAINE,DEHYDRATION,DRY HEAVES ED Provider: Kash Carson Discharge Problem: Dissection of vertebral artery, Headache Patient Disposition: Admitted As Inpatient Discharge Instructions Interventions: ED Discharge Assessment Last Done: 08/17/22 11:35
[2022-08-17] MEDS ORDERED: OPTIRAY 320 500ml IV ONE (07:52)
--- NOTE | 2022-08-17 08:16 | CT Scan Report ---
CT ANGIOGRAM OF THE BRAIN; CT ANGIOGRAM OF THE NECK CLINICAL HISTORY: Headache. Nausea. COMPARISON STUDY: Unenhanced CT of the brain performed the same day 08/17/2022. TECHNIQUE: Following the IV administration of 120 of Optiray 320, CT angiogram of the head and neck w as performed from the aortic arch to the vertex. Images are reviewed in the axial, sagittal, and jenn nal planes. 3-D MIPS images are created and assessed. IV contrast was administered without complicati on. All measurements were calculated based on NASCET criteria. A dose lowering technique was utilize d adhering to the principles of ALARA. CT DOSE: 558.28 mGy.cm FINDINGS: Brain parenchyma: The brain parenchyma is normal in appearance. There is no evidence of hemorrhage, m ass effect, or acute territorial ischemia noting angiographic phase technique. There is no evidence o f enhancing mass lesion on the angiogram phase images. The ventricles, sulci, and cisterns are normal in configuration. Alexander-white matter differentiation is preserved. No extra-axial fluid collection is seen. Thoracic aorta: Visualized portions of the thoracic aorta are normal in caliber. The aortic arch demo nstrates standard 3-vessel anatomy. Right carotid arterial system: The right common carotid artery is widely patent, as are the right int ernal and external carotid arteries. Left carotid arterial system: The left common carotid artery is widely patent, as are the left internal control specialist al and external carotid arteries. Vertebral arteries: The vertebral arteries are patent bilaterally and codominant. There is a long seg ment dissection of the right vertebral artery. This originates at the level of C6 as seen on image #1 [id number] and extends superiorly to the level of C3 as seen on image #262. Both lumens are patent. Both vert ebral arteries are difficult to visualize at the level of C2, likely related to artifact. Subclavian arteries: Widely patent bilaterally. Intracranial vasculature: The internal carotid arteries are patent at the skull base, as are the ante rior and middle cerebral arteries bilaterally. The vertebrobasilar system and posterior cerebral puja rajesh are widely patent. The vertebral arteries are codominant. There is origin of the right pos terior cerebral artery. There is no aneurysm, high-grade stenosis, or focal vessel cut off seen throu ghout the intracranial circulation. Jugular veins: Patent bilaterally. Dural sinuses: Patent. Lung apices: Partially visualized upper lobe lung parenchyma appears clear. Soft tissues: The visualized pharyngeal soft tissues are normal in appearance noting angiographic pha se technique. The oropharyngeal airway appears widely patent. The salivary and thyroid glands are nor mal in appearance. No cervical lymphadenopathy is seen. Skeletal structures: The calvarium appears intact. The cervical spine is within normal limits. Orbits: The bony orbits are intact. Orbital contents are normal as visualized. Sinuses and mastoids: The paranasal sinuses are clear. The mastoid air cells are well pneumatized. IMPRESSION: 1. There is no evidence of hemorrhage, mass effect, or acute territorial ischemia noting angiographic phase technique. 2. Unremarkable CT angiogram of the brain. 3. 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 Both lumens are patent and this is of indeterminant chronicity. 4. Otherwise unremarkable CT angiogram of the neck. ACT 112: Negative or not required by law. Electronically signed by: Jaison Montana M.D. 08/17/2022 8:14 AM
[2022-08-17] MEDS ORDERED: CLOPIDOGREL BISULFATE 300 MG TAB PO STA (09:28)
[2022-08-17] MEDS ORDERED: ASPIRIN CHEW 324 MG PO STA (09:28)
--- NOTE | 2022-08-17 10:21 | History & Physical Report ---
Date of Service August 17, 2022 Assessment & Plan (1) Vertebral artery dissection: Plan: Risk factor of oral contraceptive use - consider stopping this with PCP, given age and duration of use she was thinking about stopping anyway I am not clear this caused her headache for the last three months or just yesterday - will defer to neurology regarding this Clopidogrel and aspirin load given in the ER, will continue ASA 81mg PO daily and clopidogrel 75mg PO daily for stroke risk reduction MRI brain w/wo contrast to assess for stroke Stroke risk analysis with lipid profile and HbA1C with AM labs ESR and CRP to assess vasculitis (2) Headache: Plan: I am not clear whether her 3 months headache history is all down to her vertebral artery dissection. I am more suspicious symptoms are still due to discontinuation of paroxetine and would consider restarting paroxetine if not felt to be due to vertebral artery dissection with the plan to then wean off with fluoxetine or similar longer half life. Will also stop BuSpar as not helpful for her anxiety and given recently started and worsening headache, possibly contributing Acetaminophen PRN for pain Ondansetron PRN for nausea (3) Anxiety: Plan: Stop BuSpar as above Continue lorazepam PRN Plan VTE Prophylaxis - low risk Diet - heart healthy Disposition - admit to med/tele History of Present Illness Chief Complaint: Headache Primary Care Provider: Ibis Dos Santos MD Galilea Charles is a 52 year old female who presents to the ER with headache. She reports managing headaches for the last three months. She has no significant history of headaches prior to this. She gets two kinds of headaches. Firstly a milder dull ache on the left side of her face with the feeling like her eye is popping out like a pimple. The second headache is a feeling like the side of her head are in a vice which is being slowly squeezed. The headaches come on slowly and progressively getting worse. Each headache appears to be separate and do not follow on from one another. No light sensitivity. Intensity can last for hours at a time. Yesterday she woke up with the more intense vice-like headache that lasted all day and became unbearable. Severity 9/10 at worse. Currently 3/10. She has never had any neck or chest pain. She has no history of migraines, does not smoke, no recent trauma or known exacerbating event. She reports recently weaning down paroxetine starting from March last year. She completely came off this 6 weeks ago and was prescribed sertraline to use as needed but she did not feel anxious therefore did not take this. She started BuSpar just three days ago and has not noticed any noticeable effect on her anxiety. She takes lorazepam sparingly. Risk factors: Combined oral contraceptive - since high school. No pregnancies. In the ER CT head and head/neck angiogram showed right vertebral artery dissection. She was given aspirin and clopidogrel and referred to medicine for admission and ongoing management. Allergies Allergy/AdvReac Type Severity Reaction Status Date / Time azithromycin Allergy Intermediate Gastrointestinal Verified 08/11/22 15:31 Upset codeine Allergy Intermediate SHAKES AND Verified 08/11/22 15:31 CHEST PAIN morphine Allergy Intermediate HIVES WITH Verified 08/11/22 15:31 DOSE FROM ED ON 04/18/10 citalopram Allergy Mild GI UPSET Verified 08/11/22 15:31 cat dander Allergy Verified 08/11/22 15:31 levofloxacin AdvReac Unknown "FELT Verified 08/11/22 15:31 WEIRD AND PAIN IN THE LEGS" Opioid Analgesics Allergy Unknown SHAKING Uncoded 08/11/22 15:31 ALL OVER, GI UPSET Home Medications Medication Instructions Recorded Confirmed Type calcium carbonate 500 mg-vitamin 1 tab PO HS 09/13/18 08/17/22 History D3 5 mcg (200 unit) tablet (Os-Ignacio 500 + D3) cholecalciferol (vitamin D3) 25 1,000 unit PO BID 09/13/18 08/17/22 History mcg (1,000 unit) tablet (Vitamin D3) cyanocobalamin (vitamin B-12) 500 500 mcg PO BID 09/13/18 08/17/22 History mcg tablet ferrous sulfate 325 mg (65 mg 325 mg PO HS 09/13/18 08/17/22 History iron) tablet (iron) multivitamin 1 tab PO QAM 09/13/18 08/17/22 History omega 3 350 mg-dha 235 mg-epa 90 1 cap PO HS 09/13/18 08/17/22 History mg-fish oil 597 mg capsule,delay rel (Walland-3) folic acid 400 mcg tablet 0.4 mg PO DAILY #30 tabs 03/11/22 08/17/22 Rx ondansetron HCl 4 mg tablet 4 mg PO Q6H PRN nausea and 06/11/22 08/17/22 Rx vomiting #20 tabs lorazepam 0.5 mg tablet 0.5 mg PO BID PRN anxiety #60 tabs 06/18/22 08/17/22 Rx cetirizine [24Hour Allergy] 1 tab PO DAILY 08/10/22 08/17/22 History norethindrone 1 mg-ethinyl 1 tab PO DAILY #84 tabs 08/10/22 08/17/22 Rx estradiol 20 mcg (24)-iron 75 mg (4) tablet buspirone 7.5 mg tablet 7.5 mg PO BID #110 tabs 08/12/22 08/17/22 Rx Past Med/Surg History Medical History (Updated 08/17/22 @ 11:28 by Fazal Houston MD) Anxiety Arthralgia of multiple sites Asthma HX OF (NO PROBLEM NOW) C. difficile colitis resolved > from food poisioning Chronic constipation Chronic rhinitis Chronic sinusitis Degenerative disc disease LUMBAR AREA Depression GERD (gastroesophageal reflux disease) High blood triglycerides History of IBS Hypercholesterolemia Hypothyroidism Kidney stone pt unaware Panic disorder with agoraphobia Renal cyst no further check up Temporomandibular joint disorder just gets pain no locking Surgical History History of cholecystectomy History of colonoscopy History of endoscopic sinus surgery History of esophagogastroduodenoscopy (EGD) History of nasal septoplasty Hx of LASIK Family History Mother Family history of diabetes mellitus Arthritis Diabetes Father Family history of diabetes mellitus Diabetes Kidney disease Brother Family history of diabetes mellitus Diabetes Grandfather (Paternal) Family history of diabetes mellitus Grandfather (Maternal) Family hx colonic polyps Uncle Myocardial infarction Aunt Myocardial infarction Coronary heart disease Grandmother Breast cancer Sister No problems noted. Sister No problems noted. 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 Feels Safe at Home: Yes Childhood Exposure to Second-Hand Smoke: No caffeine: No during the past year weight has: remained stable Dental Care, Regularly: Yes Physical Activity Frequency: Daily Seatbelt Use: sometimes Sunscreen Use: Yes Assistive Devices: None Review of Systems Review of Systems: All systems reviewed & are unremarkable except as noted in HPI & below Physical Exam Constitutional: WD/WN, vitals as above Eyes: PERRL, conjunctivae normal, anicteric sclerae ENMT: external ear and nose normal, oropharynx normal Neck: trachea midline, no thyromegaly Respiratory: normal respiratory effort, lungs clear to auscultation Cardiovascular: RRR, no murmur, no edema Gastrointestinal (Abdomen): normal bowel sounds, soft, nontender, no hepatosplenomegaly Musculoskeletal: no cyanosis or clubbing, extremities motor strength 5/5 Skin: no rashes, warm and dry Neurologic: awake; + does not move all extremities, no focal motor deficits and not confused Speech / Cognition: normal speech Motor/Sensory: no tremor, no pronator drift and no sensory deficit Cranial Nerves: PERRL, EOM intact bilaterally, normal facial strength, normal hearing, able to rotate head bilaterally, able to elevate shoulders bilaterally, no nystagmus and symmetric palate elevation Psychiatric: A+Ox3, euthymic affect Results & Data Results & Data Vital Signs (Past 12 Hours) Vital Signs Temp Pulse Pulse Resp BP BP Pulse Ox 08/17/22 10:00 69 16 120/87 99 08/17/22 08:00 65 16 150/77 H 99 08/17/22 05:37 36.5 C 105 H 16 132/86 96 O2 Del Method 08/17/22 10:00 Room Air 08/17/22 08:00 08/17/22 05:37 Room Air Laboratory Results Abnormal lab results 08/17/22 Range/Units 05:55 Potassium 3.2 L (3.5-5.1) mmol/L BUN/Creatinine Ratio 9.1 L (10-20) Glucose 111 H (70-99(Fasting)) mg/dl Diagnostic Findings CT SCAN OF THE BRAIN WITHOUT IV CONTRAST CLINICAL HISTORY: Headache. Nausea. COMPARISON STUDY: No priors. TECHNIQUE: Unenhanced axial CT scan of the brain is performed from the vertex to the skull base. A dose lowering technique was utilized adhering to the principles of ALARA. CT DOSE: 614.27 mGy.cm FINDINGS: Brain parenchyma: The brain parenchyma is normal in appearance. There is no hemorrhage, mass effect, or evidence of acute territorial ischemia by CT criteria. Alexander-white matter differentiation is preserved. No extra-axial fluid collection is seen. Ventricles, sulci, cisterns: Normal in configuration. Intracranial vasculature: The visualized intracranial vasculature at the skull base is normal in appearance. Calvarium: Unremarkable. Sinuses and mastoids: The visualized paranasal sinuses are clear. The mastoid air cells are well pneumatized. Orbits: The bony orbits are grossly intact. IMPRESSION: No acute intracranial abnormality. CT ANGIOGRAM OF THE BRAIN; CT ANGIOGRAM OF THE NECK CLINICAL HISTORY: Headache. Nausea. COMPARISON STUDY: Unenhanced CT of the brain performed the same day 08/17/2022. TECHNIQUE: Following the IV administration of 120 of Optiray 320, CT angiogram of the head and neck was performed from the aortic arch to the vertex. Images are reviewed in the axial, sagittal, and coronal planes. 3-D MIPS images are created and assessed. IV contrast was administered without complication. All measurements were calculated based on NASCET criteria. A dose lowering technique was utilized adhering to the principles of ALARA. CT DOSE: 558.28 mGy.cm FINDINGS: Brain parenchyma: The brain parenchyma is normal in appearance. There is no evidence of hemorrhage, mass effect, or acute territorial ischemia noting angiographic phase technique. There is no evidence of enhancing mass lesion on the angiogram phase images. The ventricles, sulci, and cisterns are normal in configuration. Alexander-white matter differentiation is preserved. No extra-axial fluid collection is seen. Thoracic aorta: Visualized portions of the thoracic aorta are normal in caliber. The aortic arch demonstrates standard 3-vessel anatomy. Right carotid arterial system: The right common carotid artery is widely patent, as are the right internal and external carotid arteries. Left carotid arterial system: The left common carotid artery is widely patent, as are the left internal and external carotid arteries. Vertebral arteries: The vertebral arteries are patent bilaterally and codominant. 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 This originates at the level of C6 as seen on image #195 and extends superiorly to the level of C3 as seen on image #262. Both lumens are patent. Both vertebral arteries are difficult to visualize at the level of C2, likely related to artifact. Subclavian arteries: Widely patent bilaterally. Intracranial vasculature: The internal carotid arteries are patent at the skull base, as are the anterior and middle cerebral arteries bilaterally. The vertebrobasilar system and posterior cerebral arteries are widely patent. The vertebral arteries are codominant. There is origin of the right posterior cerebral artery. There is no aneurysm, high-grade stenosis, or focal vessel cut off seen throughout the intracranial circulation. Jugular veins: Patent bilaterally. Dural sinuses: Patent. Lung apices: Partially visualized upper lobe lung parenchyma appears clear. Soft tissues: The visualized pharyngeal soft tissues are normal in appearance noting angiographic phase technique. The oropharyngeal airway appears widely patent. The salivary and thyroid glands are normal in appearance. No cervical lymphadenopathy is seen. Skeletal structures: The calvarium appears intact. The cervical spine is within normal limits. Orbits: The bony orbits are intact. Orbital contents are normal as visualized. Sinuses and mastoids: The paranasal sinuses are clear. The mastoid air cells are well pneumatized. IMPRESSION: 1. There is no evidence of hemorrhage, mass effect, or acute territorial ischemia noting angiographic phase technique. 2. Unremarkable CT angiogram of the brain. 3. 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 Both lumens are patent and this is of indeterminant chronicity. 4. Otherwise unremarkable CT angiogram of the neck. Medications Administered ER Medications Given: NSS 1L bolus Compazine 10mg IV Diphenhydramine 50mg IV Toradol 15mg IV Clopidogrel 300mg PO Aspirin 324mg PO ECG Rate (beats per minute): 69 Rhythm: normal sinus Findings: + other (q waves in V1-2) and + left axis deviation Comparison ECG Date: from (August 20, 2013) Change: the following changes noted (q waves meeting criteria for septal infarct are new) Code Status & VTE Plan Code Status Full VTE Prophylaxis Plan VTE Prophylaxis will be ordered: No PG Care Time/CCT Total # of Minutes Spent Total Time Spent with Patient: Total time spent is greater than 50% in coordination of care (as documented) at patient's floor/unit and/or counseling patient: Coding Level of Care Code 63179 INT INP/OBS CARE 3/75MIN Diagnoses Vertebral artery dissection I77.74 Headache R51.9 Anxiety F41.9
[2022-08-17 11:48] LABS: C Reactive Protein 0.59 mg/dl (0-0.5)
[2022-08-17] MEDS ORDERED: LORazepam 0.5 MG TAB PO PRN (11:48)
[2022-08-17] MEDS ORDERED: ONDANSETRON INJ 2 MG/ML 2 ML VIAL IV PRN (11:48)
[2022-08-17] MEDS ORDERED: ACETAMINOPHEN 325 MG TAB PO PRN (11:48)
[2022-08-17] MEDS ORDERED: LACTATED RINGER'S 1,000 ML IV SCH (11:48)
--- NOTE | 2022-08-17 12:18 | Magnetic Resonance Report ---
MRI OF THE BRAIN WITHOUT IV CONTRAST CLINICAL HISTORY: Headache. Vertebral artery dissection. COMPARISON STUDY: CT of the brain dated 08/17/2022. TECHNIQUE: MRI of the brain was performed utilizing various T1 and T2-weighted sequences in the axial , sagittal, and coronal planes. IV contrast was not administered for this examination. FINDINGS: Brain parenchyma: There is minimal microangiopathic change. The brain parenchyma is otherwise normal in appearance. There is no hemorrhage or mass effect. There is no restricted diffusion to suggest acu te ischemia. Alexander-white matter differentiation is preserved. No extra-axial fluid collection is seen. The cerebellar tonsils are normal in configuration. Ventricles, sulci, and cisterns: Normal in configuration. Pituitary and sella: Unremarkable. Intracranial vasculature: Normal flow voids are maintained at the skull base. Orbits: The bony orbits are grossly intact. Orbital contents are normal in appearance. Sinuses and mastoids: Clear. Calvarium: Unremarkable. Cervical cord: Partially visualized cervical spinal cord is normal in morphology and signal intensity . IMPRESSION: No acute intracranial abnormality. ACT 112: Negative or not required by law. Electronically signed by: Jaison Montana M.D. 08/17/2022 12:17 PM
--- NOTE | 2022-08-17 15:12 | Electrocardiogram Report ---
Test Reason : Blood Pressure : / mmHG Vent. Rate : 069 BPM Atrial Rate : 069 BPM P-R Int : 122 ms QRS Dur : 084 ms QT Int : 436 ms P-R-T Axes : 027 -49 034 degrees QTc Int : 467 ms Normal sinus rhythm Left axis deviation Septal infarct , age undetermined Abnormal ECG When compared with ECG of 20-AUG-2013 17:06, QRS axis Shifted left Septal infarct is now Present Confirmed by Luis Best ([id number]) on 08/17/2022 3:12:32 PM Referred By: REFERRED SELF Confirmed By:Luis Best
[2022-08-17] MEDS ORDERED: ORAL CONTRACEPTIVE~ORDER AWAITING ACTION SCH (16:00)
--- NOTE | 2022-08-17 16:01 | Neurology Consultation ---
Date of Consultation August 17, 2022 Assessment & Plan (1) Chronic daily headache: Impression: The patient has been suffering from almost daily headaches for last 3 to 4 months. She denies having prior headache syndromes including migraine and tension headaches. She has been tapered off from Paxil during last few months which might play a role of recently worsening headache. I do not think that incidental finding of vertebral artery dissection is the cause of the patient's diffuse headache. Based on history, the patient likely has chronic tension type headache with superimposed migrainous attacks. Recommendations/plan: Because of frequent headaches, she needs to be on preventive treatment. After discussing about different alternatives, we decided start patient on topiramate 25 mg at bedtime for a week. She will increase the dosage to 50 mg in second week, 75 mg in third week, then will continue using 100 mg at bedtime for at least 3 months. For abortive treatment, she will use Excedrin Migraine or Tylenol with Benadryl but no more than 2 days in a week to avoid analgesic rebound headache. Sleep hygiene and avoidance from stressors are explained and recommend the patient. The patient should be excused from work until next week. The patient is stable neurologically and she can be discharged home. I will contact with [facility] neurology group to set up a follow-up appointment. 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 Patency was intact. Brain MRI did not show any ischemic intracranial pathology. Recommendations/plan: We will keep the patient on double antiplatelet treatment for 3 months, and aspirin for 6 months. Follow-up CT angiography of neck vessels in 6 months. The patient should avoid hyperextension and flexion of neck as well as neck manipulations. She should be followed by neurology clinic. Plan As seen above. Thank for the consultation. History of Present Illness Reason for Consultation: Headache and vertebral artery dissection. 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 The patient reports that she has been suffering from almost daily headaches for last 3 to 4 months. Initially, they thought that it was related to Paxil, which has been titrated off, she has noticed worsening headache. She denies having headache syndromes including migraine and tension headaches prior to 3 months. She denies being on any new medications. She also denies head and neck trauma but she goes to chiropractor for neck and back adjustments. The patient occasionally gets nausea with bad headaches. She describes her headaches as a vice-like paint tester, diffuse, sometimes started from one side, without light and sound sensitivity but physical activity intolerance. Stress, mental exertion might worsen her headache. She does not get symptoms to suggest aura. She has not been on any preventive medications. She reports worsening anxiety symptoms since stopping Paxil. She was recently started on BuSpar. She is also on oral contraceptive pills. In the emergency department, head CT was unremarkable, however, CT angiogram of head and neck showed right vertebral artery long segment dissection with uncertain chronicity. The patient denies having any sudden onset neck pain. Based on such finding, the patient was admitted to hospital. Brain MRI did not show any intracranial ischemic lesion. CT angiography did not show significant alteration of patency of vertebral arteries. I have reviewed the patient's chart including imaging studies and visualized them personally. I have discussed the case with the patient and answered her questions in detail. Allergies Allergy/AdvReac Type Severity Reaction Status Date / Time azithromycin Allergy Intermediate Gastrointestinal Verified 08/11/22 15:31 Upset codeine Allergy Intermediate SHAKES AND Verified 08/11/22 15:31 CHEST PAIN morphine Allergy Intermediate HIVES WITH Verified 08/11/22 15:31 DOSE FROM ED ON 04/18/10 citalopram Allergy Mild GI UPSET Verified 08/11/22 15:31 cat dander Allergy Verified 08/11/22 15:31 levofloxacin AdvReac Unknown "FELT Verified 08/11/22 15:31 WEIRD AND PAIN IN THE LEGS" Opioid Analgesics Allergy Unknown SHAKING Uncoded 08/11/22 15:31 ALL OVER, GI UPSET Home Medications Medication Instructions Recorded Confirmed Type calcium carbonate 500 mg-vitamin 1 tab PO HS 09/13/18 08/17/22 History D3 5 mcg (200 unit) tablet (Os-Ignacio 500 + D3) cholecalciferol (vitamin D3) 25 1,000 unit PO BID 09/13/18 08/17/22 History mcg (1,000 unit) tablet (Vitamin D3) cyanocobalamin (vitamin B-12) 500 500 mcg PO BID 09/13/18 08/17/22 History mcg tablet ferrous sulfate 325 mg (65 mg 325 mg PO HS 09/13/18 08/17/22 History iron) tablet (iron) multivitamin 1 tab PO QAM 09/13/18 08/17/22 History omega 3 350 mg-dha 235 mg-epa 90 1 cap PO HS 09/13/18 08/17/22 History mg-fish oil 597 mg capsule,delay rel (Merna-3) folic acid 400 mcg tablet 0.4 mg PO DAILY #30 tabs 03/11/22 08/17/22 Rx ondansetron HCl 4 mg tablet 4 mg PO Q6H PRN nausea and 06/11/22 08/17/22 Rx vomiting #20 tabs lorazepam 0.5 mg tablet 0.5 mg PO BID PRN anxiety #60 tabs 06/18/22 08/17/22 Rx cetirizine [24Hour Allergy] 1 tab PO DAILY 08/10/22 08/17/22 History norethindrone 1 mg-ethinyl 1 tab PO DAILY #84 tabs 08/10/22 08/17/22 Rx estradiol 20 mcg (24)-iron 75 mg (4) tablet buspirone 7.5 mg tablet 7.5 mg PO BID #110 tabs 08/12/22 08/17/22 Rx Patient History Medical History Anxiety Arthralgia of multiple sites Asthma HX OF (NO PROBLEM NOW) C. difficile colitis resolved > from food poisioning Chronic constipation Chronic rhinitis Chronic sinusitis Degenerative disc disease LUMBAR AREA Depression GERD (gastroesophageal reflux disease) High blood triglycerides History of IBS Hypercholesterolemia Hypothyroidism Kidney stone pt unaware Panic disorder with agoraphobia Renal cyst no further check up Temporomandibular joint disorder just gets pain no locking Surgical History History of cholecystectomy History of colonoscopy History of endoscopic sinus surgery History of esophagogastroduodenoscopy (EGD) History of nasal septoplasty Hx of LASIK Family History Mother Family history of diabetes mellitus Arthritis Diabetes Father Family history of diabetes mellitus Diabetes Kidney disease Brother Family history of diabetes mellitus Diabetes Grandfather (Paternal) Family history of diabetes mellitus Grandfather (Maternal) Family hx colonic polyps Uncle Myocardial infarction Aunt Myocardial infarction Coronary heart disease Grandmother Breast cancer Sister No problems noted. Sister No problems noted. Denies family history of Ovarian cancer Prostate cancer Colorectal cancer Social History Smoking Status: Never smoker Second Hand Exposure: No; Hx Alcohol Use: No Hx Substance Use: No Preferred Language: Polish Communication Ability: Effective Visual Impairment: No Limitations Hearing Ability: Normal Risk Compliance Analyst Required: No Beliefs That Will Affect Care: None marital status: Single Current Living Situation: Alone current occupational status: employed current occupation: HR Body Artist Feels Safe at Home: Yes Childhood Exposure to Second-Hand Smoke: No caffeine: No during the past year weight has: remained stable Dental Care, Regularly: Yes Physical Activity Frequency: Daily Seatbelt Use: sometimes Sunscreen Use: Yes Assistive Devices: None Review of Systems Review of Systems: All systems reviewed & are unremarkable except as noted in HPI & below Physical Exam Physical Exam: General Examination: Constitutional: Well developed person in no acute distress. HENT: Normal exam with inspection. CV: Hearth rhythm is regular. Neck: Supple, no carotid bruits. Lungs: Non-labored and comfortable breathing. Abdomen: Soft, non-tender, non-distended. Skin: No rash or ecchymosis. Extremities: No edema or cyanosis NEUROLOGICAL EXAMINATION: Mental Status: Alert and oriented to place, person and time. Cranial Nerves: II-XII are intact. No nystagmus. Funduscopy: Normal looking optic discs. Motor: 5/5 in all extremities without asymmetry. Tone: Normal without spasticity or rigidity. Sensory: Intact to all sensory modalities. Coordination: No dysmetria with FTN testing. Speech: Fluent. Comprehension is intact. Gait: Normal. No ataxia or abnormal walking pattern. Musculoskeletal: Normal muscle bulk, no atrophy. DTRs: 2+ all. No Babinsky Results & Data Vital Signs (Past 12 Hours) Vital Signs Temp Pulse Pulse Resp BP BP Pulse Ox 08/17/22 15:55 36.7 C 72 16 132/69 98 08/17/22 10:00 69 16 120/87 99 08/17/22 08:00 65 16 150/77 H 99 08/17/22 05:37 36.5 C 105 H 16 132/86 96 O2 Del Method 08/17/22 15:55 Room Air 08/17/22 10:00 Room Air 08/17/22 08:00 08/17/22 05:37 Room Air Laboratory Results Laboratory Results - last 24 hr 08/17/22 08/17/22 08/17/22 05:55 05:55 05:55 WBC 6.26 RBC 4.75 Hgb 14.6 Hct 41.8 MCV 88.0 MCH 30.7 MCHC 34.9 RDW Std Deviation 37.9 RDW Coeff of Remi 11.8 Plt Count 315 MPV 10.9 Immature Gran % (Auto) 0.3 Neut % (Auto) 66.9 Lymph % (Auto) 25.7 Drew % (Auto) 5.9 Eos % (Auto) 0.6 Baso % (Auto) 0.6 Neut # (Auto) 4.18 Lymph # (Auto) 1.61 Drew # (Auto) 0.37 Eos # (Auto) 0.04 Baso # (Auto) 0.04 Immature Gran # (Auto) 0.02 ESR Sodium 140 Potassium 3.2 L Chloride 101 Carbon Dioxide 28 Anion Gap 11 BUN 7 Creatinine 0.77 Est Cr Clr Drug Dosing 98.9 Est GFR ( Amer) 104.3 Est GFR (Non-Af Amer) 90.0 BUN/Creatinine Ratio 9.1 L Glucose 111 H Calcium 9.4 Total Bilirubin 0.7 AST 23 ALT 31 Alkaline Phosphatase 65 C-Reactive Protein 0.59 H Total Protein 7.5 Albumin 4.5 Globulin 3.0 Albumin/Globulin Ratio 1.5 HCG, Qual Negative SARS-CoV-2, RNA, NAAT 08/17/22 08/17/22 08/17/22 05:55 05:55 09:11 WBC RBC Hgb Hct MCV MCH MCHC RDW Std Deviation RDW Coeff of Remi Plt Count MPV Immature Gran % (Auto) Neut % (Auto) Lymph % (Auto) Drew % (Auto) Eos % (Auto) Baso % (Auto) Neut # (Auto) Lymph # (Auto) Drew # (Auto) Eos # (Auto) Baso # (Auto) Immature Gran # (Auto) ESR 12 Sodium Potassium Chloride Carbon Dioxide Anion Gap BUN Creatinine Est Cr Clr Drug Dosing Est GFR ( Amer) Est GFR (Non-Af Amer) BUN/Creatinine Ratio Glucose Calcium Total Bilirubin AST ALT Alkaline Phosphatase C-Reactive Protein Cancelled Total Protein Albumin Globulin Albumin/Globulin Ratio HCG, Qual SARS-CoV-2, RNA, NAAT NEGATIVE Diagnostic Findings Head CT 08/17/22 06:15 CT SCAN OF THE BRAIN WITHOUT IV CONTRAST CLINICAL HISTORY: Headache. Nausea. COMPARISON STUDY: No priors. TECHNIQUE: Unenhanced axial CT scan of the brain is performed from the vertex to the skull base. A dose lowering technique was utilized adhering to the principles of ALARA. CT DOSE: 614.27 mGy.cm FINDINGS: Brain parenchyma: The brain parenchyma is normal in appearance. There is no hemorrhage, mass effect, or evidence of acute territorial ischemia by CT criteria. Alexander-white matter differentiation is preserved. No extra-axial fluid collection is seen. Ventricles, sulci, cisterns: Normal in configuration. Intracranial vasculature: The visualized intracranial vasculature at the skull base is normal in appearance. Calvarium: Unremarkable. Sinuses and mastoids: The visualized paranasal sinuses are clear. The mastoid air cells are well pneumatized. Orbits: The bony orbits are grossly intact. IMPRESSION: No acute intracranial abnormality. ACT 112: Negative or not required by law. Electronically signed by: Jaison Montana M.D. 08/17/2022 6:50 AM Head CTA 08/17/22 07:23 CT ANGIOGRAM OF THE BRAIN; CT ANGIOGRAM OF THE NECK CLINICAL HISTORY: Headache. Nausea. COMPARISON STUDY: Unenhanced CT of the brain performed the same day 08/17/2022. TECHNIQUE: Following the IV administration of 120 of Optiray 320, CT angiogram of the head and neck was performed from the aortic arch to the vertex. Images are reviewed in the axial, sagittal, and coronal planes. 3-D MIPS images are created and assessed. IV contrast was administered without complication. All measurements were calculated based on NASCET criteria. A dose lowering technique was utilized adhering to the principles of ALARA. CT DOSE: 558.28 mGy.cm FINDINGS: Brain parenchyma: The brain parenchyma is normal in appearance. There is no evidence of hemorrhage, mass effect, or acute territorial ischemia noting angiographic phase technique. There is no evidence of enhancing mass lesion on the angiogram phase images. The ventricles, sulci, and cisterns are normal in configuration. Alexander-white matter differentiation is preserved. No extra-axial fluid collection is seen. Thoracic aorta: Visualized portions of the thoracic aorta are normal in caliber. The aortic arch demonstrates standard 3-vessel anatomy. Right carotid arterial system: The right common carotid artery is widely patent, as are the right internal and external carotid arteries. Left carotid arterial system: The left common carotid artery is widely patent, as are the left internal and external carotid arteries. Vertebral arteries: The vertebral arteries are patent bilaterally and codominant. 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 T his originates at the level of C6 as seen on image #195 and extends superiorly to the level of C3 as seen on image #262. Both lumens are patent. Both vertebral arteries are difficult to visualize at the level of C2, likely related to artifact. Subclavian arteries: Widely patent bilaterally. Intracranial vasculature: The internal carotid arteries are patent at the skull base, as are the anterior and middle cerebral arteries bilaterally. The vertebrobasilar system and posterior cerebral arteries are widely patent. The vertebral arteries are codominant. There is origin of the right posterior cerebral artery. There is no aneurysm, high-grade stenosis, or focal vessel cut off seen throughout the intracranial circulation. Jugular veins: Patent bilaterally. Dural sinuses: Patent. Lung apices: Partially visualized upper lobe lung parenchyma appears clear. Soft tissues: The visualized pharyngeal soft tissues are normal in appearance noting angiographic phase technique. The oropharyngeal airway appears widely patent. The salivary and thyroid glands are normal in appearance. No cervical lymphadenopathy is seen. Skeletal structures: The calvarium appears intact. The cervical spine is within normal limits. Orbits: The bony orbits are intact. Orbital contents are normal as visualized. Sinuses and mastoids: The paranasal sinuses are clear. The mastoid air cells are well pneumatized. IMPRESSION: 1. There is no evidence of hemorrhage, mass effect, or acute territorial ischemia noting angiographic phase technique. 2. Unremarkable CT angiogram of the brain. 3. 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 Both lumens are patent and this is of indeterminant chronicity. 4. Otherwise unremarkable CT angiogram of the neck. ACT 112: Negative or not required by law. Electronically signed by: Jaison Montana M.D. 08/17/2022 8:14 AM Neck CTA 08/17/22 07:23 CT ANGIOGRAM OF THE BRAIN; CT ANGIOGRAM OF THE NECK CLINICAL HISTORY: Headache. Nausea. COMPARISON STUDY: Unenhanced CT of the brain performed the same day 08/17/2022. TECHNIQUE: Following the IV administration of 120 of Optiray 320, CT angiogram of the head and neck was performed from the aortic arch to the vertex. Images are reviewed in the axial, sagittal, and coronal planes. 3-D MIPS images are created and assessed. IV contrast was administered without complication. All measurements were calculated based on NASCET criteria. A dose lowering technique was utilized adhering to the principles of ALARA. CT DOSE: 558.28 mGy.cm FINDINGS: Brain parenchyma: The brain parenchyma is normal in appearance. There is no evidence of hemorrhage, mass effect, or acute territorial ischemia noting angiographic phase technique. There is no evidence of enhancing mass lesion on the angiogram phase images. The ventricles, sulci, and cisterns are normal in configuration. Alexander-white matter differentiation is preserved. No extra-axial fluid collection is seen. Thoracic aorta: Visualized portions of the thoracic aorta are normal in caliber. The aortic arch demonstrates standard 3-vessel anatomy. Right carotid arterial system: The right common carotid artery is widely patent, as are the right internal and external carotid arteries. Left carotid arterial system: The left common carotid artery is widely patent, as are the left internal and external carotid arteries. Vertebral arteries: The vertebral arteries are patent bilaterally and codominant. 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 This originates at the level of C6 as seen on image #195 and extends superiorly to the level of C3 as seen on image #262. Both lumens are patent. Both vertebral arteries are difficult to visualize at the level of C2, likely related to artifact. Subclavian arteries: Widely patent bilaterally. Intracranial vasculature: The internal carotid arteries are patent at the skull base, as are the anterior and middle cerebral arteries bilaterally. The vertebrobasilar system and posterior cerebral arteries are widely patent. The vertebral arteries are codominant. There is origin of the right posterior cerebral artery. There is no aneurysm, high-grade stenosis, or focal vessel cut off seen throughout the intracranial circulation. Jugular veins: Patent bilaterally. Dural sinuses: Patent. Lung apices: Partially visualized upper lobe lung parenchyma appears clear. Soft tissues: The visualized pharyngeal soft tissues are normal in appearance noting angiographic phase technique. The oropharyngeal airway appears widely patent. The salivary and thyroid glands are normal in appearance. No cervical lymphadenopathy is seen. Skeletal structures: The calvarium appears intact. The cervical spine is within normal limits. Orbits: The bony orbits are intact. Orbital contents are normal as visualized. Sinuses and mastoids: The paranasal sinuses are clear. The mastoid air cells are well pneumatized. IMPRESSION: 1. There is no evidence of hemorrhage, mass effect, or acute territorial ischemia noting angiographic phase technique. 2. Unremarkable CT angiogram of the brain. 3. 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 Both lumens are patent and this is of indeterminant chronicity. 4. Otherwise unremarkable CT angiogram of the neck. ACT 112: Negative or not required by law. Electronically signed by: Jaison Montana M.D. 08/17/2022 8:14 AM Brain MRI 08/17/22 10:22 MRI OF THE BRAIN WITHOUT IV CONTRAST CLINICAL HISTORY: Headache. Vertebral artery dissection. COMPARISON STUDY: CT of the brain dated 08/17/2022. TECHNIQUE: MRI of the brain was performed utilizing various T1 and T2-weighted sequences in the axial, sagittal, and coronal planes. IV contrast was not administered for this examination. FINDINGS: Brain parenchyma: There is minimal microangiopathic change. The brain parenchyma is otherwise normal in appearance. There is no hemorrhage or mass effect. There is no restricted diffusion to suggest acute ischemia. Alexander-white matter diffe rentiation is preserved. No extra-axial fluid collection is seen. The cerebellar tonsils are normal in configuration. Ventricles, sulci, and cisterns: Normal in configuration. Pituitary and sella: Unremarkable. Intracranial vasculature: Normal flow voids are maintained at the skull base. Orbits: The bony orbits are grossly intact. Orbital contents are normal in appearance. Sinuses and mastoids: Clear. Calvarium: Unremarkable. Cervical cord: Partially visualized cervical spinal cord is normal in morphology and signal intensity. IMPRESSION: No acute intracranial abnormality. ACT 112: Negative or not required by law. Electronically signed by: Jaison Montana M.D. 08/17/2022 12:17 PM
--- NOTE | 2022-08-17 19:35 | Discharge Summary ---
Date of Service August 17, 2022 Admission HPI Per Admitting Provider Galilea Charles is a 52 year old female who presents to the ER with headache. She reports managing headaches for the last three months. She has no significant history of headaches prior to this. She gets two kinds of headaches. Firstly a milder dull ache on the left side of her face with the feeling like her eye is popping out like a pimple. The second headache is a feeling like the side of her head are in a vice which is being slowly squeezed. The headaches come on slowly and progressively getting worse. Each headache appears to be separate and do not follow on from one another. No light sensitivity. Intensity can last for hours at a time. Yesterday she woke up with the more intense vice-like headache that lasted all day and became unbearable. Severity 9/10 at worse. Currently 3/10. She has never had any neck or chest pain. She has no history of migraines, does not smoke, no recent trauma or known exacerbating event. She reports recently weaning down paroxetine starting from March last year. She completely came off this 6 weeks ago and was prescribed sertraline to use as needed but she did not feel anxious therefore did not take this. She started BuSpar just three days ago and has not noticed any noticeable effect on her anxiety. She takes lorazepam sparingly. Risk factors: Combined oral contraceptive - since high school. No pregnancies. In the ER CT head and head/neck angiogram showed right vertebral artery dissection. She was given aspirin and clopidogrel and referred to medicine for admission and ongoing management. Principal Diagnosis Chronic daily headache Right vertebral artery dissection Discharge Exam Patient not re-examined on discharge Discharge Data Allergies Allergy/AdvReac Type Severity Reaction Status Date / Time azithromycin Allergy Intermediate Gastrointestinal Verified 08/11/22 15:31 Upset codeine Allergy Intermediate SHAKES AND Verified 08/11/22 15:31 CHEST PAIN morphine Allergy Intermediate HIVES WITH Verified 08/11/22 15:31 DOSE FROM ED ON 04/18/10 citalopram Allergy Mild GI UPSET Verified 08/11/22 15:31 cat dander Allergy Verified 08/11/22 15:31 levofloxacin AdvReac Unknown "FELT Verified 08/11/22 15:31 WEIRD AND PAIN IN THE LEGS" Opioid Analgesics Allergy Unknown SHAKING Uncoded 08/11/22 15:31 ALL OVER, GI UPSET Consultations 08/17/22 09:32 ED Decision to Admit Stat 08/17/22 11:48 Consult Neurology Routine Ordered Studies 08/17/22 06:15 CT head/brain wo con Stat IMPRESSION: No acute intracranial abnormality. 08/17/22 07:23 CT angio head w con Stat CT angio neck with con Stat IMPRESSION: 1. There is no evidence of hemorrhage, mass effect, or acute territorial ischemia noting angiographic phase technique. 2. Unremarkable CT angiogram of the brain. 3. 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 Both lumens are patent and this is of indeterminant chronicity. 4. Otherwise unremarkable CT angiogram of the neck. 08/17/22 10:22 MR brain wo con Stat IMPRESSION: No acute intracranial abnormality. Hospital Course (1) Vertebral artery dissection: Galilea Charles is a 52 year old female admitted to [facility] on August 17, [address] angiogram showed a right vertebral artery dissection. Subsequent brain MRI showed no downstream stroke. You were started on clopidogrel and aspirin for stroke risk reduction. You will need to follow up with neurology ([facility] neurology should call you to set up an appointment, please call the number above if you do not hear back in 1 week) and have repeat CT angiography of neck vessels in 6 months. Avoid hyperextension and flexion of neck, neck manipulations with chiropractor and yoga. The oral contraceptive pill increases your risk of vertebral dissection therefore recommend discussing discontinuing this with your primary care physician. You should remain on aspirin and clopidogrel for 3 months then aspirin alone for 6 months. Please follow up with your primary care provider for this. For your headache we discussed Topamax and recommend discussing this more with your primary care provider vs. restarting Paxil. For abortive treatment recommend using Excedrin migraine with diphenhydramine (Benadryl) but use this no more than two days in a week to avoid a rebound headache. Recommend stopping BuSpar at least temporarily as your headaches have been worse since starting this. Recommend sleep hygiene and avoidance from stressors. (2) Headache: (3) Anxiety: Discharge Plan Discharge Items Patient Disposition: Home - Self-Care Reason For Visit: RIGHT VERTEBRAL DISSECTION Discharge Diagnosis: Headache Right vertebral artery dissection Activity: Resume your previous activity Non-emergency contact: Primary Care Provider Call non-emergency contact if: you have any medication questions and your symptoms worsen Follow-up/Referrals: Ibis Dos Santos MD [Primary Care Provider] - Kin Romero MD [Physician] - Diet: Regular Addtl Attending Provider Instructions: You were admitted to [facility] on August 17, [address] imaging showed a vertebral artery dissection. Subsequent brain MRI showed no downstream stroke. You were started on clopidogrel and aspirin for stroke risk reduction. You will need to follow up with neurology ([facility] neurology should call you to set up an appointment, please call the number above if you do not hear back in 1 week) and have repeat CT angiography of neck vessels in 6 months. Avoid hyperextension and flexion of neck, neck manipulations with chiropractor and yoga. The oral contraceptive pill increases your risk of vertebral dissection therefore recommend discussing discontinuing this with your primary care physician. You should remain on aspirin and clopidogrel for 3 months then aspirin alone for 6 months. Please follow up with your primary care provider for this. For your headache we discussed Topamax and recommend discussing this more with your primary care provider vs. restarting Paxil. For abortive treatment recommend using Excedrin migraine with diphenhydramine (Benadryl) but use this no more than two days in a week to avoid a rebound headache. Recommend stopping BuSpar at least temporarily as your headaches have been worse since starting this. Recommend sleep hygiene and avoidance from stressors. Pending Studies at Discharge: No Stand-Alone Forms: My [facility], Work/School Release, Smoking Cessation Medications and DC Order Prescriptions: New Excedrin Migraine 250-250-65 mg tablet 1 tab PO Q4H PRN (Reason: headache) Qty: 30 0RF aspirin 81 mg capsule 81 mg PO DAILY Qty: 30 0RF clopidogrel 75 mg tablet 75 mg PO DAILY Qty: 30 0RF Continued lorazepam 0.5 mg tablet 0.5 mg PO BID PRN (Reason: anxiety) Qty: 60 0RF folic acid 400 mcg tablet 0.4 mg PO DAILY Qty: 30 2RF ondansetron HCl 4 mg tablet 4 mg PO Q6H PRN (Reason: nausea and vomiting) Qty: 20 0RF cetirizine [24Hour Allergy] 1 tab PO DAILY norethindrone-e.estradiol-iron 1 mg-20 mcg (24)/75 mg (4) tablet 1 tab PO DAILY Qty: 84 3RF multivitamin Tablet 1 tab PO QAM cyanocobalamin (vitamin B-12) 500 mcg Tablet 500 mcg PO BID ferrous sulfate [iron] 325 mg (65 mg iron) Tablet 325 mg PO HS calcium carbonate-vitamin D3 [Os-Ignacio 500 + D3] 500 mg(1,250mg) -200 unit Tablet 1 tab PO HS cholecalciferol (vitamin D3) [Vitamin D3] 1,000 unit Tablet 1,000 unit PO BID Mercedita-3 350 mg-235 mg- 90 mg-597 mg Capsule,Delayed Release(Dr/Ec) 1 cap PO HS Discontinued buspirone 7.5 mg tablet 7.5 mg PO BID Qty: 110 1RF Discharge Orders: Discharge Order (Routine); Ordered 08/17/22 Ordered By: Fazal Houston Admission Data Admit Date/Time: 08/17/22 10:25 Attending Provider: Fazal Houston Admit Provider: Fazal Houston Primary Care Provider: Ibis Dos Santos Other Providers: Jerald Lane ; Kin Romero Coding Diagnoses Vertebral artery dissection I77.74 Headache R51.9 Anxiety F41.9
[2022-08-17] MEDS ORDERED: CYANOCOBALAMIN (B-12) 500 MCG TABLET PO SCH (21:00)
[2022-08-17] MEDS ORDERED: CALCIUM 600MG + VIT D 400 IU TAB PO SCH (21:00)
[2022-08-17] MEDS ORDERED: FERROUS SULFATE 325 MG TAB PO SCH (21:00)
[2022-08-18] MEDS ORDERED: ASPIRIN 81 MG ECTAB PO SCH (09:00)
[2022-08-18] MEDS ORDERED: CLOPIDOGREL BISULFATE 75 MG TAB PO SCH (09:00)
[2022-08-18] MEDS ORDERED: FOLIC ACID 400 MCG TAB PO SCH (09:00)
[2022-08-18] MEDS ORDERED: CETIRIZINE HCL 10 MG TABLET PO SCH (09:00)
== END 2022-08-17 20:11 | disposition home or self-care (01) | DRG 301 ==
LOC: ED 05:28 → EDINP 10:25 → INTOOBSV 10:25 → 2N 11:35

== ENCOUNTER 2023-12-30 08:22 | Inpatient (IN) ==
[2023-12-30 09:33] LABS: Basophils # (auto) 0.04 K/uL (0.00-0.20); Basophils % (auto) 0.5 %; Eosinophils # (auto) 0.39 K/uL (0.00-0.50); Eosinophils % (auto) 4.9 %; Hematocrit (blood only) 35.3 % (37.0-47.0); Hemoglobin 12.4 g/dl (12.0-16.0); Immature Granulocytes % (auto) 1.3 %; Lymphocytes # (auto) 1.61 K/uL (1.20-3.40); Lymphocytes % (auto) 20.2 %; Mean Corpuscular Hemoglobin 32.5 pg (25.0-34.0); Mean Corpuscular Hgb Conc 35.1 g/dL (32.0-36.0); Mean Corpuscular Volume 92.4 fL (80.0-100.0); Mean Platelet Volume 9.9 fL (9.4-12.4); Monocytes # (auto) 1.93 K/uL (0.11-0.59); Monocytes % (auto) 24.2 %; Neutrophils # (auto) 3.89 K/uL (1.40-6.50); Neutrophils % (auto) 48.9 %; Platelet Count 240 K/uL (130-400); RDW Coefficient of Variation 15.5 % (11.5-14.5); RDW Standard Deviation 51.9 fL (36.4-46.3); Red Blood Count 3.82 M/uL (4.20-5.40); White Blood Count 7.96 K/ul (4.8-10.8)
[2023-12-30 09:51] LABS: Albumin Level 3.9 gm/dl (3.4-5.0); BUN Creatinine Ratio 13.7 (10-20); Bilirubin Direct 0.1 mg/dl (0-0.2); Bilirubin,Total 0.4 mg/dl (0.2-1.0); Creatinine Clr Calc Pharmacy 103.9 ml/min; Est GFR (African American) 110.5 ml/min; Est GFR (Non-African American) 95.4 ml/min; Potassium 3.3 mmol/L (3.5-5.1); Total Protein 6.7 gm/dl (6.0-8.3)
[2023-12-30 10:06] LABS: Troponin I High Sensitivity 11.7 pg/ml (0-14)
--- NOTE | 2023-12-30 10:18 | Emergency Department Note ---
Impression & Plan Acute pancreatitis, Pancolitis ED Provider Note NAME: MICHELA HIDALGO AGE: 53 SEX: F : 1970 ARRIVES VIA: Walk-In INFORMANT: Patient, ED PROVIDER(S): Carli Luna MD CHIEF COMPLAINT: Shortness of breath, abdominal pain HPI: This is a 53-year-old female senting for shortness of breath and abdominal pain. Patient notes that for the past 3 days she has had increasing episodes of nausea, dry heaving with abdominal pain diffusely. She notes pain in her epigastric/left upper quadrant region. She notes pain in her right lower quadrant. She notes new shortness of breath with some slight chest pressure. She does have a history of liver cancer and gets chemotherapy. She scheduled for an infusion tomorrow. Last infusion was 12/16. She notes no fevers or chills. She notes discomfort throughout her entire body. She notes that she was previously constipated has been taking stool softeners with some relief. ROS: See above HPI for pertinent positives & negatives. A total of 10 systems reviewed and were otherwise negative. PAST MEDICAL HISTORY: See Below PAST SURGICAL HISTORY: See Below FAMILY HISTORY: See Below SOCIAL HISTORY: See Below HOME MEDICATIONS: See Below ALLERGIES: See Below VITALS: See Below PHYSICAL EXAMINATION: General: resting comfortably in no acute distress Head: Normocephalic and atraumatic Eyes: Normal inspection, extraocular muscles intact Ear, nose, throat: Normal external exam Neck: Normal range of motion Respiratory: lungs clear to auscultation bilaterally Cardiovascular: Regular rate/rhythm, no murmur GI: Epigastric tenderness without rebound, slight voluntary guarding Extremities: nontender, moves all extremities Neuro: The patient awake and alert, appropriately conversive, no focal deficits, symmetric faces Skin: Warm, dry, and intact MEDICAL DECISION MAKING: This is a 53-year-old female presenting for shortness of breath/abdominal pain. Consider PE with patient's current tachycardia, shortness of breath and slight chest pain. Otherwise consider SBO, pancreatitis, diverticulitis, cholecystitis, thrombotic disease. -Vital signs are reviewed and do show slight tachycardia. -Blood work is reviewed showing no leukocytosis. Hemoglobin appears stable. Slight hypokalemia. Lactate was initially elevated 2.4. Troponin negative. BNP negative. Lipase slightly up at 233, concerning for early pancreatitis. Urinalysis negative at this time -Patient CT imaging reveals evidence of pancolitis. Lateral does. Thickened however there is negative UA. -Patient has evidence of early pancreatitis and now pancolitis. With repeat no compromise status, will admit for further treatment. Patient also comfortable with this plan. -Discussed care with Dr. Page for admission. Differential diagnosis: See above ER treatment provided: See below Independent History obtained from: Patient Diagnostics interpreted by me: ECG: ECG independently interpreted by me with sinus tachycardia, rate of 106, right axis deviation, normal GA, normal QRS, normal QTc, no ST segment elevations consistent with STEMI criteria Cardiac Monitoring: An order was placed for continuous cardiac monitoring. The monitor shows a rate of 80 with sinus rhythm. Laboratory studies: As stated above and show below. Imaging studies: See below. Past Med/Surg History Problem List (Updated 12/30/23 @ 16:41 by Carli Luna MD) Pancolitis (Acute) Acute pancreatitis (Acute) Pancolitis Cholangiocarcinoma Liver lesion, right lobe Raynaud phenomenon Chronic daily headache Dissection of vertebral artery (Acute) entered into EMR and last edited 08/17/22 Menorrhagia Allergic rhinitis due to cats (Acute) Allergic rhinitis due to pollen (Acute) Allergy to mold spores (Acute) Anxiety (Chronic 01/23/13) Arthralgia of multiple sites (Acute) B12 deficiency (Acute) Chronic constipation (Acute) Chronic reflux esophagitis (Acute) Chronic rhinitis (Acute) Chronic sinusitis (Acute) Depression (Acute) Disc degeneration, lumbar (Acute) Epigastric pain (Acute) entered into EMR and last edited 12/01/18 Hypercholesterolemia (Acute) Panic disorder with agoraphobia (Acute) Vitamin D deficiency (Acute) Medical History Anxiety Asthma hx after hospitalization for either pneumonia or bronchitis years ago, no current issues or inhalers C. 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 spenser landeros, s vascular GERD (gastroesophageal reflux disease) hx, no current issues or meds High blood triglycerides hx-no current meds History of anesthesia reaction 07/12/23, liver resection at [facility], pt told they had to bring a rapid response team in for pt 2x during OR/PACU time period, pt unsure of exact details. History of IBS Hx of migraines Hypothyroidism hx-no meds currently Raynaud phenomenon hx, no current issues Renal cyst no further check up Temporomandibular joint disorder just gets pain no locking Surgical History History of cholecystectomy History of colonoscopy History of endoscopic sinus surgery History of esophagogastroduodenoscopy (EGD) History of nasal septoplasty History of resection of liver 07/12/23, [facility], lower lobe Hx of LASIK Family History Mother Family history of diabetes mellitus Arthritis Diabetes Father Family history of diabetes mellitus Diabetes Kidney disease Brother Family history of diabetes mellitus Diabetes Grandfather (Paternal) Family history of diabetes mellitus Grandfather (Maternal) Family hx colonic polyps Uncle Myocardial infarction Aunt Myocardial infarction Coronary heart disease Grandmother Breast cancer Sister No problems noted. Sister No problems noted. Denies family history of Ovarian cancer Prostate cancer Colorectal cancer Social History Smoking Status: Never smoker Second Hand Exposure: No; Do You Dip or Chew Tobacco: No; Hx Alcohol Use: No Hx Substance Use: No Preferred Language: Bhutanese Communication Ability: Effective Visual Impairment: No Limitations Hearing Ability: Normal Clother In Required: No Beliefs That Will Affect Care: None marital status: Single Current Living Situation: Alone current occupational status: employed current occupation: [employer] Operator Feels Safe at Home: Yes Childhood Exposure to Second-Hand Smoke: No Diet: regular caffeine: No during the past year weight has: remained stable Dental Care, Regularly: Yes Physical Activity Frequency: Daily Seatbelt Use: sometimes Sunscreen Use: Yes Assistive Devices: None Allergies Allergies Allergy/AdvReac Type Severity Reaction Status Date / Time azithromycin Allergy Intermediate Gastrointestinal Verified 11/15/23 09:00 Upset codeine Allergy Intermediate SHAKES AND Verified 11/15/23 09:00 CHEST PAIN morphine Allergy Intermediate HIVES WITH Verified 11/15/23 09:00 DOSE FROM ED ON 04/18/10 citalopram Allergy Mild GI UPSET Verified 11/15/23 09:00 cat dander Allergy Verified 11/15/23 09:00 levofloxacin AdvReac Unknown "FELT Verified 11/15/23 09:00 WEIRD AND PAIN IN THE LEGS" Opioid Analgesics Allergy Unknown SHAKING Uncoded 11/12/23 07:35 ALL OVER, GI UPSET Home Meds Home Medications Medication Instructions Recorded Confirmed calcium carbonate 500 mg-vitamin 1 tab PO HS 09/13/18 11/15/23 D3 5 mcg (200 unit) tablet (Os-Ignacio 500 + D3) cholecalciferol (vitamin D3) 25 1,000 unit PO BID 09/13/18 11/15/23 mcg (1,000 unit) tablet (Vitamin D3) cyanocobalamin (vitamin B-12) 500 500 mcg PO BID 09/13/18 11/15/23 mcg tablet ferrous sulfate 325 mg (65 mg 325 mg PO HS 09/13/18 11/15/23 iron) tablet (iron) multivitamin 1 tab PO QAM 09/13/18 11/15/23 omega 3 350 mg-dha 235 mg-epa 90 1 cap PO HS 09/13/18 11/15/23 mg-fish oil 597 mg capsule,delay rel (Simla-3) Previous Rx's Medication Instructions Recorded folic acid 400 mcg tablet 0.4 mg PO DAILY #30 tabs 03/11/22 aspirin 81 mg capsule 81 mg PO DAILY #30 caps 08/17/22 klzukfu-ueetfrkdcldql-diskstdp 250 1 tab PO Q4H PRN headache #30 tabs 08/17/22 mg-250 mg-65 mg tablet (Excedrin Migraine) lorazepam 0.5 mg tablet 0.5 mg PO BID PRN anxiety #60 tabs 06/16/23 doxepin 10 mg capsule 10 mg PO PM PRN insomnia #90 caps 11/11/23 oxycodone-acetaminophen 5 mg-325 1 tab PO Q6H PRN pain #14 tabs 11/15/23 mg tablet (Percocet) sertraline 100 mg tablet 150 mg (1.5 x 100 mg) PO HS #135 12/28/23 tabs Results & Data (ED) Vital Signs Vital Signs - 24 hr 12/30/23 08:26 12/30/23 08:31 12/30/23 08:38 Temperature 36.9 C Temperature Source Temporal Artery Scan Pulse Rate 118 H 102 H Pulse Rate [Apical] 94 H Pulse Rate from SpO2 Sensor Pulse Rhythm [Apical] Regular Pulse Strength [Apical] Normal Respiratory Rate 24 20 Respiratory Effort / Characteristics Non-Labored Respiratory Depth Normal Normal Respiratory Pattern Regular Blood Pressure 120/78 Blood Pressure [Right Arm] 145/75 H Blood Pressure Mean 92 Blood Pressure Mean [Right Arm] 98 Blood Pressure Position [Right Arm] Lying Pulse Oximetry 97 95 Oxygen Delivery Method Room Air Room Air Sepsis Recent Fever Within 48 Hours No Sepsis New/Unexplained Change in Mental Status No Sepsis Action Taken by Nursing No Action Required 12/30/23 09:09 12/30/23 09:09 12/30/23 09:09 Temperature Temperature Source Pulse Rate Pulse Rate [Apical] Pulse Rate from SpO2 Sensor Pulse Rhythm [Apical] Pulse Strength [Apical] Respiratory Rate Respiratory Effort / Characteristics Respiratory Depth Respiratory Pattern Blood Pressure 152/103 H 152/103 H 152/103 H Blood Pressure [Right Arm] Blood Pressure Mean 116 116 116 Blood Pressure Mean [Right Arm] Blood Pressure Position [Right Arm] Pulse Oximetry Oxygen Delivery Method Sepsis Recent Fever Within 48 Hours Sepsis New/Unexplained Change in Mental Status Sepsis Action Taken by Nursing 12/30/23 09:09 12/30/23 09:12 12/30/23 09:27 Temperature Temperature Source Pulse Rate 89 94 H Pulse Rate [Apical] Pulse Rate from SpO2 Sensor 89 94 H Pulse Rhythm [Apical] Pulse Strength [Apical] Respiratory Rate 25 H 20 Respiratory Effort / Characteristics Respiratory Depth Respiratory Pattern Blood Pressure 152/103 H Blood Pressure [Right Arm] Blood Pressure Mean 116 Blood Pressure Mean [Right Arm] Blood Pressure Position [Right Arm] Pulse Oximetry 97 95 Oxygen Delivery Method Sepsis Recent Fever Within 48 Hours Sepsis New/Unexplained Change in Mental Status Sepsis Action Taken by Nursing 12/30/23 09:30 12/30/23 09:33 12/30/23 09:54 Temperature Temperature Source Pulse Rate 92 H 88 Pulse Rate [Apical] Pulse Rate from SpO2 Sensor 91 H 90 Pulse Rhythm [Apical] Pulse Strength [Apical] Respiratory Rate 17 28 H Respiratory Effort / Characteristics Respiratory Depth Respiratory Pattern Blood Pressure 146/89 H Blood Pressure [Right Arm] Blood Pressure Mean 110 Blood Pressure Mean [Right Arm] Blood Pressure Position [Right Arm] Pulse Oximetry 97 96 Oxygen Delivery Method Sepsis Recent Fever Within 48 Hours Sepsis New/Unexplained Change in Mental Status Sepsis Action Taken by Nursing 12/30/23 10:00 12/30/23 10:00 12/30/23 10:30 Temperature Temperature Source Pulse Rate Pulse Rate [Apical] Pulse Rate from SpO2 Sensor Pulse Rhythm [Apical] Pulse Strength [Apical] Respiratory Rate Respiratory Effort / Characteristics Respiratory Depth Respiratory Pattern Blood Pressure 147/84 H 147/84 H 148/86 H Blood Pressure [Right Arm] Blood Pressure Mean 107 107 111 Blood Pressure Mean [Right Arm] Blood Pressure Position [Right Arm] Pulse Oximetry Oxygen Delivery Method Sepsis Recent Fever Within 48 Hours Sepsis New/Unexplained Change in Mental Status Sepsis Action Taken by Nursing 12/30/23 10:30 12/30/23 10:38 12/30/23 11:23 Temperature Temperature Source Pulse Rate 76 76 Pulse Rate [Apical] Pulse Rate from SpO2 Sensor 77 76 Pulse Rhythm [Apical] Pulse Strength [Apical] Respiratory Rate 16 26 H Respiratory Effort / Characteristics Respiratory Depth Respiratory Pattern Blood Pressure 148/86 H Blood Pressure [Right Arm] Blood Pressure Mean 111 Blood Pressure Mean [Right Arm] Blood Pressure Position [Right Arm] Pulse Oximetry 99 99 Oxygen Delivery Method Room Air Sepsis Recent Fever Within 48 Hours Sepsis New/Unexplained Change in Mental Status Sepsis Action Taken by Nursing 12/30/23 11:30 12/30/23 11:36 12/30/23 12:02 Temperature Temperature Source Pulse Rate 77 80 Pulse Rate [Apical] Pulse Rate from SpO2 Sensor 79 81 Pulse Rhythm [Apical] Pulse Strength [Apical] Respiratory Rate 21 17 Respiratory Effort / Characteristics Respiratory Depth Respiratory Pattern Blood Pressure 152/88 H Blood Pressure [Right Arm] Blood Pressure Mean 112 Blood Pressure Mean [Right Arm] Blood Pressure Position [Right Arm] Pulse Oximetry 100 98 Oxygen Delivery Method Sepsis Recent Fever Within 48 Hours Sepsis New/Unexplained Change in Mental Status Sepsis Action Taken by Nursing Laboratory Data 12/30/23 08:47 12/30/23 08:47 Lab Results 12/30/23 12/30/23 12/30/23 Range/Units 08:47 09:11 11:18 WBC 7.96 (4.8-10.8) K/ul RBC 3.82 L (4.20-5.40) M/uL Hgb 12.4 (12.0-16.0) g/dl Hct 35.3 L (37.0-47.0) % MCV 92.4 (80.0-100.0) fL MCH 32.5 (25.0-34.0) pg MCHC 35.1 (32.0-36.0) g/dL RDW Std Deviation 51.9 H (36.4-46.3) fL RDW Coeff of Remi 15.5 H (11.5-14.5) % Plt Count 240 (130-400) K/uL MPV 9.9 (9.4-12.4) fL Immature Gran % (Auto) 1.3 % Neut % (Auto) 48.9 % Lymph % (Auto) 20.2 % [place] % (Auto) 24.2 % Eos % (Auto) 4.9 % Baso % (Auto) 0.5 % Neut # (Auto) 3.89 (1.40-6.50) K/uL Lymph # (Auto) 1.61 (1.20-3.40) K/uL [place] # (Auto) 1.93 H (0.11-0.59) K/uL Eos # (Auto) 0.39 (0.00-0.50) K/uL Baso # (Auto) 0.04 (0.00-0.20) K/uL Immature Gran # (Auto) 0.10 (0.01-0.20) K/uL Sodium 138 (136-145) mmol/L Potassium 3.3 L (3.5-5.1) mmol/L Chloride 102 (98-107) mmol/L Carbon Dioxide 26 (21-32) mmol/L Anion Gap 10 (3-11) BUN 10 (6-23) mg/dl Creatinine 0.73 (0.6-1.2) mg/dl Est Cr Clr Drug Dosing 103.9 ml/min Est GFR ( Amer) 110.5 ml/min Est GFR (Non-Af Amer) 95.4 ml/min BUN/Creatinine Ratio 13.7 (10-20) Glucose 121 H (70-99(Fasting)) mg/dl Lactate 2.4 H* (0.4-2.0) mmol/L Calcium 9.0 (8.6-10.3) mg/dl Total Bilirubin 0.4 (0.2-1.0) mg/dl Direct Bilirubin 0.1 (0-0.2) mg/dl AST 20 (13-39) U/L ALT 14 (7-52) U/L Alkaline Phosphatase 170 H (34-104) U/L Troponin I High Sens 11.7 (0-14) pg/ml B-Natriuretic Peptide 14 (0-100) pg/ml Total Protein 6.7 (6.0-8.3) gm/dl Albumin 3.9 (3.4-5.0) gm/dl Lipase 233 H (11-82) U/L Urine Color Yellow Urine Appearance Clear (Clear) Urine pH 6.0 (4.5-7.5) Ur Specific [place] > 1.045 H (1.000-1.030) Urine Protein Negative (Negative) Urine Glucose (UA) Negative (Negative) Urine Ketones Negative (Negative) Urine Blood Negative (Negative) Urine Nitrite Negative (Negative) Urine Bilirubin Negative (Negative) Urine Urobilinogen Negative (Negative) Ur Leukocyte Esterase Negative (Negative) Administered Medications Dextrose/Lactated Ringer's (D5w And Lactated Ringers) 1,000 mls @ 100 mls/hr IV .Q10H MIRNA Stop: 01/29/24 12:29 Last Admin: 12/30/23 13:12 Dose: 100 mls/hr Documented By: SRL Discontinued Medications Sodium Chloride (Nss) 1,000 mls @ 999 mls/hr IV .Q1H1M ONE Stop: 12/30/23 12:00 Last Infusion: 12/30/23 12:17 Dose: Infused Documented By: Admin: 12/30/23 11:21 Dose: 999 mls/hr Documented By: L Piperacillin Sod/Tazobactam (Sod 4.5 gm/ Dextrose) 100 mls @ 200 mls/hr IV NOW ONE; Protocol Stop: 12/30/23 13:29 Last Admin: 12/30/23 15:39 Dose: 200 mls/hr Documented By: ANA Ioversol (Optiray 320 125ml) 118 ml IV ONCE ONE Stop: 12/30/23 10:20 Last Admin: 12/30/23 10:20 Dose: 118 ml Documented By: ELIZABETH Imaging Data Radiologist's Impression: Abdomen/Pelvis CT 12/30/23 09:02 CT SCAN OF THE ABDOMEN AND PELVIS WITH IV CONTRAST CLINICAL HISTORY: Lower abdominal pain. COMPARISON STUDY: Abdominal MRI dated 05/11/2023. TECHNIQUE: Following the IV administration of 118 cc of Optiray 320, CT scan of the abdomen and pelvis is performed from the lung bases to the proximal femora. Images are reviewed in the axial, sagittal, and coronal planes. IV contrast was administered without complication. A dose lowering technique was utilized adhering to the principles of ALARA. FINDINGS: Lung bases: The heart is normal in size and without pericardial effusion. The lung bases are clear. Liver: There is postsurgical change from right hepatic lobe resection with heterogeneity along the resection margin. A 4.4 cm residual right lobe lesion is not excluded on image #54. The contrast-enhanced liver is normal in size, contour, and attenuation. There is no intrahepatic biliary ductal dilatation. The hepatic veins and portal veins are patent. Gallbladder: Unremarkable. Spleen: Normal in size and attenuation. Pancreas: Unremarkable. Adrenal glands: Unremarkable. Kidneys: The contrast enhanced kidneys are normal in size and without hydronephrosis. The kidneys enhance symmetrically. A 2 cm cyst is seen on the right. Abdominal vasculature: The abdominal aorta is normal in course and caliber. Bowel: There is diffuse wall thickening throughout the colon with mild edema and mucosal hyperemia. There is minimal surrounding infiltrate formation. No bowel obstruction is seen. The appendix is well-visualized and normal. Peritoneum: There is no intraperitoneal free air or abdominal ascites. Lymphadenopathy: There are numerous mildly enlarged mesenteric lymph nodes in the right upper quadrant to mid abdomen. A client services representative node on image #136 measures 1.7 cm in length. There is no retroperitoneal, iliac chain, pelvic sidewall, or inguinal lymphadenopathy. Pelvic viscera: The bladder is decompressed and appears thick-walled. A 9 mm cystic focus along the bladder dome likely represents a urachal remnant. The uterus and adnexa are normal as imaged. Skeletal structures: There is mild lumbosacral spondylosis. No lytic or blastic lesions are seen. IMPRESSION: 1. There is evidence of a nonspecific pancolitis. Correlate clinically. 2. There is postsurgical change from right lobe hepatic resection. 3. There is heterogeneity along the hepatic resection margin, with a 4.4 cm focus of lobular irregularity. Although this could represent postsurgical change, a recurrent or residual lesion is not excluded. Correlate with any prior postoperative imaging studies. 4. The bladder wall appears thickened. Correlate with clinical findings and urinalysis. 5. There are numerous mildly enlarged right-sided mesenteric lymph nodes. These are pathologically indeterminate and may be reactive. Attention follow-up is recommended. 6. Additional findings as above. ACT 112: Negative or not required by law. Electronically signed by: Jaison Montana M.D. 12/30/2023 10:35 AM Chest CTA 12/30/23 09:02 CT angio chest PE protocol CLINICAL HISTORY: Liver Ca, CP, SOB, tachycardic, PE TECHNIQUE: Multidetector row helical CT of the chest was performed with angiographic protocol. Coronal and sagittal reformations were obtained. Coronal and sagittal MIPS were obtained from the axial data set and were submitted for review. Automated dose lowering techniques and/or adjustment according to patient size were utilized for this exam. CT DOSE: 1520.98 mGy.cm Comparison: Comparison is made to CT chest 03/07/2013 FINDINGS: Lungs and pleura: Normal. Heart and pericardium: Heart size is normal. No pericardial effusion. Vessels: No evidence of pulmonary embolism. Mediastinum and mi: Subcentimeter lymph nodes are seen. Chest wall and lower neck: A right port catheter is seen. Abdomen: For findings below the diaphragm, please refer to CT of the abdomen dated the same. Bones: Degenerative changes in the thoracic spine. IMPRESSION: No acute abnormality and in particular no evidence of pulmonary embolus. ACT 112: Negative or not required by law. Electronically signed by: Tomas Burks M.D. 12/30/2023 10:35 AM Discharge Plan Visit Data Chief Complaint: Syncope (Near Syncope) Stated Complaint: SOB, DEHYDRATION, DIZZNESS ED Provider: Carli Luna Discharge Problem: Acute pancreatitis, Pancolitis Patient Disposition: Admitted As Inpatient Discharge Instructions Interventions: ED Discharge Assessment Last Done: 12/30/23 14:41
[2023-12-30] MEDS: OPTIRAY 320 125ml IV ONE (10:20)
--- NOTE | 2023-12-30 10:37 | CT Scan Report ---
CT angio chest PE protocol CLINICAL HISTORY: Liver Ca, CP, SOB, tachycardic, PE TECHNIQUE: Multidetector row helical CT of the chest was performed with angiographic protocol. Cantu l and sagittal reformations were obtained. Coronal and sagittal MIPS were obtained from the axial ana a set and were submitted for review. Automated dose lowering techniques and/or adjustment according to patient size were utilized for this exam. CT DOSE: 1520.98 mGy.cm Comparison: Comparison is made to CT chest 03/07/2013 FINDINGS: Lungs and pleura: Normal. Heart and pericardium: Heart size is normal. No pericardial effusion. Vessels: No evidence of pulmonary embolism. Mediastinum and mi: Subcentimeter lymph nodes are seen. Chest wall and lower neck: A right port catheter is seen. Abdomen: For findings below the diaphragm, please refer to CT of the abdomen dated the same. Bones: Degenerative changes in the thoracic spine. IMPRESSION: No acute abnormality and in particular no evidence of pulmonary embolus. ACT 112: Negative or not required by law. Electronically signed by: Tomas Burks M.D. 12/30/2023 10:35 AM
--- NOTE | 2023-12-30 10:37 | CT Scan Report ---
CT SCAN OF THE ABDOMEN AND PELVIS WITH IV CONTRAST CLINICAL HISTORY: Lower abdominal pain. COMPARISON STUDY: Abdominal MRI dated 05/11/2023. TECHNIQUE: Following the IV administration of 118 cc of Optiray 320, CT scan of the abdomen and pelv is is performed from the lung bases to the proximal femora. Images are reviewed in the axial, sagitta l, and coronal planes. IV contrast was administered without complication. A dose lowering technique w as utilized adhering to the principles of ALARA. FINDINGS: Lung bases: The heart is normal in size and without pericardial effusion. The lung bases are clear. Liver: There is postsurgical change from right hepatic lobe resection with heterogeneity along the re section margin. A 4.4 cm residual right lobe lesion is not excluded on image #54. The contrast-enhanc ed liver is normal in size, contour, and attenuation. There is no intrahepatic biliary ductal dilatat ion. The hepatic veins and portal veins are patent. Gallbladder: Unremarkable. Spleen: Normal in size and attenuation. Pancreas: Unremarkable. Adrenal glands: Unremarkable. Kidneys: The contrast enhanced kidneys are normal in size and without hydronephrosis. The kidneys enh ance symmetrically. A 2 cm cyst is seen on the right. Abdominal vasculature: The abdominal aorta is normal in course and caliber. Bowel: There is diffuse wall thickening throughout the colon with mild edema and mucosal hyperemia. T here is minimal surrounding infiltrate formation. No bowel obstruction is seen. The appendix is well -visualized and normal. Peritoneum: There is no intraperitoneal free air or abdominal ascites. Lymphadenopathy: There are numerous mildly enlarged mesenteric lymph nodes in the right upper quadran t to mid abdomen. A inbound sales representative node on image #136 measures 1.7 cm in length. There is no retroper itoneal, iliac chain, pelvic sidewall, or inguinal lymphadenopathy. Pelvic viscera: The bladder is decompressed and appears thick-walled. A 9 mm cystic focus along the b ladder dome likely represents a urachal remnant. The uterus and adnexa are normal as imaged. Skeletal structures: There is mild lumbosacral spondylosis. No lytic or blastic lesions are seen. IMPRESSION: 1. There is evidence of a nonspecific pancolitis. Correlate clinically. 2. There is postsurgical change from right lobe hepatic resection. 3. There is heterogeneity along the hepatic resection margin, with a 4.4 cm focus of lobular irregula rity. Although this could represent postsurgical change, a recurrent or residual lesion is not exclud ed. Correlate with any prior postoperative imaging studies. 4. The bladder wall appears thickened. Correlate with clinical findings and urinalysis. 5. There are numerous mildly enlarged right-sided mesenteric lymph nodes. These are pathologically in determinate and may be reactive. Attention follow-up is recommended. 6. Additional findings as above. ACT 112: Negative or not required by law. Electronically signed by: Jaison Montana M.D. 12/30/2023 10:35 AM
[2023-12-30] MEDS: SODIUM CHLORIDE 0.9% 1,000 ML IV ONE (11:21)
[2023-12-30 11:29] LABS: Appearance Urine Clear (Clear); Bilirubin Urine Negative (Negative); Blood Urine Negative (Negative); Color Urine Yellow; Glucose Urine UA Negative (Negative); Ketones Urine Negative (Negative); Leukocyte Esterase Urine Negative (Negative); Nitrite Urine Negative (Negative); Protein Urine Negative (Negative); Specific Gravity Urine > 1.045 (1.000-1.030); Urobilinogen Urine Negative (Negative)
[2023-12-30] MEDS ORDERED: ONDANSETRON INJ 2 MG/ML 2 ML VIAL IV PRN (12:23)
[2023-12-30] MEDS ORDERED: ACETAMINOPHEN 325 MG TAB PO PRN (12:26)
--- NOTE | 2023-12-30 12:42 | History & Physical Report ---
Date of Service December 30, 2023 Assessment & Plan (1) Pancolitis: Plan: Assessment: 1. Nausea vomiting diarrhea and abdominal pain. These are secondary to #2 and 3. 2. Pancolitis on CAT scan. Bowel rest. IV fluids. IV Zosyn for now. 3. Elevated lipase with possible early acute pancreatitis but no changes by CAT scan. Bowel rest repeat lipase. This could be just be due to dehydration with an elevated lipase as well. 4. GERD. GI prophylaxis with Protonix for now. 5. Cholangiocarcinoma/liver cancer. Under active treatment. Last chemo was December 16. CAT scan demonstrates a 4 cm lesion which could be postsurgical changes versus residual lesion. This will need followed up on as an outpatient with oncology and/or primary care. 6. Depression. Continue home medications. 7. History of C. difficile colitis in 2013. With the patient being n.p.o. and on IV antibiotics. Will place her on a probiotic as well. 8. Documented hypothyroidism but I do not see where she is on replacement. Will check a TSH. 9. Mild lactic acidosis hydrate and recheck. 10. Mild hypokalemia. Lactated Ringer's. Recheck potassium with a magnesium in the morning. Plan: As described above. Please refer to orders for further planning. History of Present Illness Chief Complaint: Abdominal pain, nausea, vomiting, diarrhea. Primary Care Provider: Ibis Dos Santos MD This is a 53-year-old female with unfortunate diagnosis of liver carcinoma who is currently undergoing active chemotherapy treatment last treatment was December 16. Over the last few days to weeks has been having increasing nausea and vomiting and abdominal discomfort with associated diarrhea. She presented to the ER for the above symptomatology for further evaluation and treatment. In the ER laboratory studies revealed mild hypokalemia at 3.3 elevated lactic acid of 2.4 mildly elevated lipase at 233. Specific gravity in the urinalysis was greater than 1.045 but negative for infection. CT of the abdomen pelvis demonstrated pancolitis with a 4.4 cm focus of lobular irregularity in the liver. There is right sided mesenteric lymph nodes noted. Postsurgical changes of right hepatic lobectomy noted. CTA of the chest demonstrated no pulmonary embolism and no acute abnormalities. Course in the ER she received some IV fluids. We are called admit the patient for further evaluation and treatment she also received antiemetics. We will with the patient we will place her on IV Zosyn for her pancolitis. To give her bowel rest for her pancreatitis hydrate her. Protonix for GI prophylaxis. Allergies Allergy/AdvReac Type Severity Reaction Status Date / Time azithromycin Allergy Intermediate Gastrointestinal Verified 11/15/23 09:00 Upset codeine Allergy Intermediate SHAKES AND Verified 11/15/23 09:00 CHEST PAIN morphine Allergy Intermediate HIVES WITH Verified 11/15/23 09:00 DOSE FROM ED ON 04/18/10 citalopram Allergy Mild GI UPSET Verified 11/15/23 09:00 cat dander Allergy Verified 11/15/23 09:00 levofloxacin AdvReac Unknown "FELT Verified 11/15/23 09:00 WEIRD AND PAIN IN THE LEGS" Opioid Analgesics Allergy Unknown SHAKING Uncoded 11/12/23 07:35 ALL OVER, GI UPSET Home Medications Medication Instructions Recorded Confirmed Type calcium carbonate 500 mg-vitamin 1 tab PO HS 09/13/18 11/15/23 History D3 5 mcg (200 unit) tablet (Os-Ignacio 500 + D3) cholecalciferol (vitamin D3) 25 1,000 unit PO BID 09/13/18 11/15/23 History mcg (1,000 unit) tablet (Vitamin D3) cyanocobalamin (vitamin B-12) 500 500 mcg PO BID 09/13/18 11/15/23 History mcg tablet ferrous sulfate 325 mg (65 mg 325 mg PO HS 09/13/18 11/15/23 History iron) tablet (iron) multivitamin 1 tab PO QAM 09/13/18 11/15/23 History omega 3 350 mg-dha 235 mg-epa 90 1 cap PO HS 09/13/18 11/15/23 History mg-fish oil 597 mg capsule,delay rel ([place]-3) folic acid 400 mcg tablet 0.4 mg PO DAILY #30 tabs 03/11/22 11/15/23 Rx aspirin 81 mg capsule 81 mg PO DAILY #30 caps 08/17/22 11/15/23 Rx jrwrzta-mbvpjruumuikj-cxaopbwj 250 1 tab PO Q4H PRN headache #30 tabs 08/17/22 11/15/23 Rx mg-250 mg-65 mg tablet (Excedrin Migraine) lorazepam 0.5 mg tablet 0.5 mg PO BID PRN anxiety #60 tabs 06/16/23 11/15/23 Rx doxepin 10 mg capsule 10 mg PO PM PRN insomnia #90 caps 11/11/23 11/15/23 Rx oxycodone-acetaminophen 5 mg-325 1 tab PO Q6H PRN pain #14 tabs 11/15/23 Rx mg tablet (Percocet) sertraline 100 mg tablet 150 mg (1.5 x 100 mg) PO HS #135 12/28/23 Rx tabs Past Med/Surg History Problem List (Updated 12/30/23 @ 12:37 by Tarik Page, PhD, DO) Pancolitis Cholangiocarcinoma Liver lesion, right lobe Raynaud phenomenon Chronic daily headache Dissection of vertebral artery (Acute) entered into EMR and last edited 08/17/22 Menorrhagia Allergic rhinitis due to cats (Acute) Allergic rhinitis due to pollen (Acute) Allergy to mold spores (Acute) Anxiety (Chronic 01/23/13) Arthralgia of multiple sites (Acute) B12 deficiency (Acute) Chronic constipation (Acute) Chronic reflux esophagitis (Acute) Chronic rhinitis (Acute) Chronic sinusitis (Acute) Depression (Acute) Disc degeneration, lumbar (Acute) Epigastric pain (Acute) entered into EMR and last edited 12/01/18 Hypercholesterolemia (Acute) Panic disorder with agoraphobia (Acute) Vitamin D deficiency (Acute) Medical History Anxiety Asthma hx after hospitalization for either pneumonia or bronchitis years ago, no current issues or inhalers C. 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 spenser land[facility], [facility] GERD (gastroesophageal reflux disease) hx, no current issues or meds High blood triglycerides hx-no current meds History of anesthesia reaction 07/12/23, liver resection at [facility], pt told they had to bring a rapid response team in for pt 2x during OR/PACU time period, pt unsure of exact details. History of IBS Hx of migraines Hypothyroidism hx-no meds currently Raynaud phenomenon hx, no current issues Renal cyst no further check up Temporomandibular joint disorder just gets pain no locking Surgical History History of cholecystectomy History of colonoscopy History of endoscopic sinus surgery History of esophagogastroduodenoscopy (EGD) History of nasal septoplasty History of resection of liver 07/12/23, [facility] [place], lower lobe Hx of LASIK Family History Mother Family history of diabetes mellitus Arthritis Diabetes Father Family history of diabetes mellitus Diabetes Kidney disease Brother Family history of diabetes mellitus Diabetes Grandfather (Paternal) Family history of diabetes mellitus Grandfather (Maternal) Family hx colonic polyps Uncle Myocardial infarction Aunt Myocardial infarction Coronary heart disease Grandmother Breast cancer Sister No problems noted. Sister No problems noted. 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 Physical Exam Physical Exam: In General: In general very pleasant 53-year-old female who is alert and oriented x 3 at time my exam she interacts appropriately. She has mild abdominal discomfort at this time my exam and has no other specific complaints HEENT: Normocephalic atraumatic pupils are equal round and reactive to light bilaterally. No scleral icterus no conjunctival injection external auditory canals are patent septum is in the midline nose is without discharge. NECK: Supple no rigidity no lymphadenopathy no thyromegaly no carotid bruits no JVD no masses. HEART: Regular rate and rhythm I do not appreciate any ectopy or rub. No murmur. LUNGS: Clear to auscultation bilaterally and anteriorly with no evidence of adv entitious sounds/wheezes rales or rhonchi. ABDOMEN: Tender to palpation diffusely., No rebound, no peritoneal sign positive bowel sounds. EXTREMITIES: intact, no peripheral cyanosis, clubbing or edema. Strength is 5 out of 5 in extremities x4.. NEUROLOGICAL: Cranial nerves II through XII are grossly intact with no focal deficit elicited upon examination. Results & Data Results & Data Vital Signs (Past 12 Hours) Vital Signs Temp Pulse Pulse Resp BP BP Pulse Ox 12/30/23 10:38 76 16 99 12/30/23 10:30 148/86 H 12/30/23 10:30 148/86 H 12/30/23 10:00 147/84 H 12/30/23 10:00 147/84 H 12/30/23 09:54 88 28 H 96 12/30/23 09:33 92 H 17 97 12/30/23 09:30 146/89 H 12/30/23 09:27 94 H 20 95 12/30/23 09:12 89 25 H 97 12/30/23 09:09 152/103 H 12/30/23 09:09 152/103 H 12/30/23 09:09 152/103 H 12/30/23 09:09 152/103 H 12/30/23 08:38 102 H 12/30/23 08:31 94 H 20 145/75 H 95 12/30/23 08:26 36.9 C 118 H 24 120/78 97 O2 Del Method 12/30/23 10:38 Room Air 12/30/23 10:30 12/30/23 10:30 12/30/23 10:00 12/30/23 10:00 12/30/23 09:54 12/30/23 09:33 12/30/23 09:30 12/30/23 09:27 12/30/23 09:12 12/30/23 09:09 12/30/23 09:09 12/30/23 09:09 12/30/23 09:09 12/30/23 08:38 12/30/23 08:31 Room Air 12/30/23 08:26 Room Air Code Status & VTE Plan Code Status Full code: I personally spoke with the patient this afternoon VTE Prophylaxis Plan VTE Prophylaxis will be ordered: Yes PG Care Time/CCT Total # of Minutes Spent Total Time Spent with Patient: Total time spent is greater than 50% in coordination of care (as documented) at patient's floor/unit and/or counseling patient: Coding Level of Care Code 58672 INT INP/OBS CARE 375MIN Diagnoses Pancolitis K51.00
[2023-12-30] MEDS: D5W AND LACTATED RINGERS 1,000 ML IV SCH (13:12)
--- NOTE | 2023-12-30 14:49 | Electrocardiogram Report ---
Test Reason : Blood Pressure : */* mmHG Vent. Rate : 106 BPM Atrial Rate : 106 BPM P-R Int : 126 ms QRS Dur : 80 ms QT Int : 348 ms P-R-T Axes : 76 162 55 degrees QTcB Int : 462 ms Sinus tachycardia Right axis deviation Nonspecific ST abnormality Abnormal ECG When compared with ECG of 17-Aug-2022 10:33, Vent. rate has increased by 37 bpm Nonspecific T wave abnormality no longer evident in Anterior leads Confirmed by Fabio Bartlett ([id number]) on 12/30/2023 2:48:57 PM Referred By: REFERRED SELF Confirmed By: Fabio Bartlett
[2023-12-30] MEDS: PIPERACILLIN/TAZOBACTAM 4.5 GM in DEXTROSE 5% MINI-B 100 ML IV ONE (15:39)
[2023-12-30] MEDS: ADVANCED PROBIOTIC 625 MG CAPSULE PO ONE (17:30)
[2023-12-30] MEDS: SERTRALINE HCL 50 MG TABLET PO SCH (20:49)
[2023-12-30] MEDS: PIPERACILLIN/TAZOBACTAM 4.5 GM in DEXTROSE 5% MINI-B 100 ML IV SCH (20:50)
[2023-12-31] MEDS: ADVANCED PROBIOTIC 625 MG CAPSULE PO SCH (07:32)
[2023-12-31 08:12] LABS: Basophils # (auto) 0.05 K/uL (0.00-0.20); Basophils % (auto) 0.7 %; Eosinophils # (auto) 0.25 K/uL (0.00-0.50); Eosinophils % (auto) 3.4 %; Hematocrit (blood only) 32.8 % (37.0-47.0); Hemoglobin 11.2 g/dl (12.0-16.0); Immature Granulocytes # (auto) 0.09 K/uL (0.01-0.20); Immature Granulocytes % (auto) 1.2 %; Lymphocytes # (auto) 1.53 K/uL (1.20-3.40); Lymphocytes % (auto) 20.8 %; Mean Corpuscular Hemoglobin 32.4 pg (25.0-34.0); Mean Corpuscular Hgb Conc 34.1 g/dL (32.0-36.0); Mean Corpuscular Volume 94.8 fL (80.0-100.0); Mean Platelet Volume 9.8 fL (9.4-12.4); Monocytes # (auto) 1.61 K/uL (0.11-0.59); Monocytes % (auto) 21.8 %; Neutrophils # (auto) 3.84 K/uL (1.40-6.50); Neutrophils % (auto) 52.1 %; Platelet Count 282 K/uL (130-400); RDW Coefficient of Variation 15.6 % (11.5-14.5); RDW Standard Deviation 53.9 fL (36.4-46.3); Red Blood Count 3.46 M/uL (4.20-5.40); White Blood Count 7.37 K/ul (4.8-10.8)
[2023-12-31 08:26] LABS: Albumin Globulin Ratio 1.4 (0.9-2); Albumin Level 3.4 gm/dl (3.4-5.0); BUN Creatinine Ratio 8.7 (10-20); Bilirubin,Total 0.4 mg/dl (0.2-1.0); Calcium 8.4 mg/dl (8.6-10.3); Chol HDL Ratio 3.4 (0-5); Creatinine Clr Calc Pharmacy 109.8 ml/min; Est GFR (African American) 116.8 ml/min; Est GFR (Non-African American) 100.8 ml/min; Globulin 2.4 gm/dl (2.5-4.0); Magnesium 1.6 mg/dl (1.7-2.4); Potassium 3.3 mmol/L (3.5-5.1); Total Protein 5.8 gm/dl (6.0-8.3)
[2023-12-31 08:40] LABS: Thyroid Stimulating Hormone 1.799 uIu/ml (0.300-4.500)
[2023-12-31] MEDS: POTASSIUM CHLORIDE / WTR 10 MEQ/100 ML PLCT IV ONE (09:12)
[2023-12-31] MEDS: PANTOprazole 40 MG in SYRINGE 0 ML IV SCH (09:12)
[2023-12-31] MEDS: MAGNESIUM SULFATE / D5W 1 GM/100 ML BAG IV ONE (09:12)
--- NOTE | 2023-12-31 12:45 | XCELERA ---
[id number]___[id number]
[2023-12-31 13:41] LABS: Adenovirus F 40/41 PCR Not Detected (NotDetected); Astrovirus PCR Not Detected (NotDetected); Campylobacter PCR Not Detected (NotDetected); Cryptosporidium PCR Not Detected (NotDetected); Cyclospora cayetanensis PCR Not Detected (NotDetected); Entamoeba histolytica PCR Not Detected (NotDetected); Enteroaggregative E.coli(EAEC) Not Detected (NotDetected); Enteropathogenic E.coli (EPEC) Not Detected (NotDetected); Enterotoxigenic E.coli (ETEC) Not Detected (NotDetected); Giardia lamblia PCR Not Detected (NotDetected); Norovirus GI/GII PCR Not Detected (NotDetected); Plesiomonas shigelloides PCR Not Detected (NotDetected); Rotavirus A PCR Not Detected (NotDetected); Salmonella PCR Not Detected (NotDetected); Sapovirus PCR Not Detected (NotDetected); Shiga-like Toxin E.coli (STEC) Not Detected (NotDetected); Shigella/Enteroinvasive E.coli Not Detected (NotDetected); Vibrio cholerae PCR Not Detected (NotDetected); Vibrio species PCR Not Detected (NotDetected); Yersinia enterocolitica PCR Not Detected (NotDetected)
--- NOTE | 2023-12-31 13:45 | Hospitalist Progress Note ---
Date of Service December 31, 2023 Assessment & Plan (1) Pancolitis: Plan: Patient reported to ED on 12/29 with complaints of nausea, vomiting, and abdominal pain. etiology: chemotherapy side effect vs viral infx CTAP 12/29 reviewed: nonspecific pancolitis, heterogeneity along hepatic margin with 4.4cm focus of lobular irregularity. could represent post surgical changes, recurrent/residual lesion not excluded CTA 12/29 reviewed:no acute abnormality and in particular no evidence of PE Last chemotherapy 12/16. actively follows with oncology C diff and GI Panel negative 12/30 CBC reviewed 12/30: WBC WNL 7.37, hgb 11.2 BMP reviewed 12/30: potassium 3.3, mag 1.6 -repleted potassium and magnesium 12/30 Fecal calprotectin and pancreatic elastase pending IVF Clear liquid diet, advance as tolerated Probiotic IV PPI daily AM CBC, BMP Plan Mental health: Zoloft Diet: clear liquid DVT prophylaxis: SCD's Code status: full Disposition: continued inpatient stay managing symptoms Admission and Anticipated Discharge Date Admission Date: December 30, 2023 Subjective Patient seen and examined this afternoon. Patient reports having to move her bowels every 15-20 minutes. She states this has been an ongoing problem for awhile now. Also reports lower abdominal cramping that is severe in nature. Physical Exam 2 Constitutional: WD/WN, vitals as above Eyes: PERRL, conjunctivae normal, anicteric sclerae Respiratory: normal respiratory effort, lungs clear to auscultation Cardiovascular: RRR, no murmur, no edema Musculoskeletal: +BS, lower abdominal tenderness, epigast roxie tenderness Psychiatric: A+Ox3, euthymic affect Results & Data Results & Data Vital Signs (Past 12 Hours) Vital Signs Temp Pulse Pulse Resp BP Pulse Ox O2 Del Method 12/31/23 13:00 90 12/31/23 11:33 36.4 C L 70 18 137/86 95 Room Air 12/31/23 08:48 36.6 C 86 20 131/84 95 Room Air 12/31/23 07:00 81 12/31/23 03:54 36.6 C 82 18 127/80 95 Room Air Laboratory Results 12/31/23 07:38 12/31/23 07:38 Diagnostic Findings Abdomen/Pelvis CT 12/30/23 09:02 CT SCAN OF THE ABDOMEN AND PELVIS WITH IV CONTRAST CLINICAL HISTORY: Lower abdominal pain. COMPARISON STUDY: Abdominal MRI dated 05/11/2023. TECHNIQUE: Following the IV administration of 118 cc of Optiray 320, CT scan of the abdomen and pelvis is performed from the lung bases to the proximal femora. Images are reviewed in the axial, sagittal, and coronal planes. IV contrast was administered without complication. A dose lowering technique was utilized adhering to the principles of ALARA. FINDINGS: Lung bases: The heart is normal in size and without pericardial effusion. The lung bases are clear. Liver: There is postsurgical change from right hepatic lobe resection with heterogeneity along the resection margin. A 4.4 cm residual right lobe lesion is not excluded on image #54. The contrast-enhanced liver is normal in size, contour, and attenuation. There is no intrahepatic biliary ductal dilatation. The hepatic veins and portal veins are patent. Gallbladder: Unremarkable. Spleen: Normal in size and attenuation. Pancreas: Unremarkable. Adrenal glands: Unremarkable. Kidneys: The contrast enhanced kidneys are normal in size and without hydronephrosis. The kidneys enhance symmetrically. A 2 cm cyst is seen on the right. Abdominal vasculature: The abdominal aorta is normal in course and caliber. Bowel: There is diffuse wall thickening throughout the colon with mild edema and mucosal hyperemia. There is minimal surrounding infiltrate formation. No bowel obstruction is seen. The appendix is well-visualized and normal. Peritoneum: There is no intraperitoneal free air or abdominal ascites. Lymphadenopathy: There are numerous mildly enlarged mesenteric lymph nodes in the right upper quadrant to mid abdomen. A inside sales account representative node on image #136 measures 1.7 cm in length. There is no retroperitoneal, iliac chain, pelvic sidewall, or inguinal lymphadenopathy. Pelvic viscera: The bladder is decompressed and appears thick-walled. A 9 mm cystic focus along the bladder dome likely represents a urachal remnant. The uterus and adnexa are normal as imaged. Skeletal structures: There is mild lumbosacral spondylosis. No lytic or blastic lesions are seen. IMPRESSION: 1. There is evidence of a nonspecific pancolitis. Correlate clinically. 2. There is postsurgical change from right lobe hepatic resection. 3. There is heterogeneity along the hepatic resection margin, with a 4.4 cm focus of lobular irregularity. Although this could represent postsurgical change, a recurrent or residual lesion is not excluded. Correlate with any prior postoperative imaging studies. 4. The bladder wall appears thickened. Correlate with clinical findings and urinalysis. 5. There are numerous mildly enlarged right-sided mesenteric lymph nodes. These are pathologically indeterminate and may be reactive. Attention follow-up is recommended. 6. Additional findings as above. ACT 112: Negative or not required by law. Electronically signed by: Jaison Montana M.D. 12/30/2023 10:35 AM Chest CTA 12/30/23 09:02 CT angio chest PE protocol CLINICAL HISTORY: Liver Ca, CP, SOB, tachycardic, PE TECHNIQUE: Multidetector row helical CT of the chest was performed with angiographic protocol. Coronal and sagittal reformations were obtained. Coronal and sagittal MIPS were obtained from the axial data set and were submitted for review. Automated dose lowering techniques and/or adjustment according to patient size were utilized for this exam. CT DOSE: 1520.98 mGy.cm Comparison: Comparison is made to CT chest 03/07/2013 FINDINGS: Lungs and pleura: Normal. Heart and pericardium: Heart size is normal. No pericardial effusion. Vessels: No evidence of pulmonary embolism. Mediastinum and mi: Subcentimeter lymph nodes are seen. Chest wall and lower neck: A right port catheter is seen. Abdomen: For findings below the diaphragm, please refer to CT of the abdomen dated the same. Bones: Degenerative changes in the thoracic spine. IMPRESSION: No acute abnormality and in particular no evidence of pulmonary embolus. ACT 112: Negative or not required by law. Electronically signed by: Tomas Burks M.D. 12/30/2023 10:35 AM PG Care Time/CCT Total # of Minutes Spent Total Time Spent with Patient: Total time spent is greater than 50% in coordination of care (as documented) at patient's floor/unit and/or counseling patient: Coding Level of Care Code 30052 SUB INP/OBS CARE 2/35MIN Diagnoses Pancolitis K51.00
[2023-12-31] MEDS: KETOROLAC TROMETHAMINE 15 MG/ML VIAL IV ONE (15:50)
[2023-12-31] MEDS ORDERED: LOPERAMIDE HCL 2 MG CAP PO PRN (16:52)
[2023-12-31] MEDS: LOPERAMIDE HCL 2 MG CAP PO STA (17:29)
[2023-12-31] MEDS ORDERED: KETOROLAC TROMETHAMINE 15 MG/ML VIAL IV PRN (21:58)
[2023-12-31] MEDS: DICYCLOMINE HCL 10 MG CAP PO PRN (22:43)
[2024-01-01 06:27] LABS: Hematocrit (blood only) 33.8 % (37.0-47.0); Hemoglobin 11.5 g/dl (12.0-16.0); Mean Corpuscular Hemoglobin 32.1 pg (25.0-34.0); Mean Corpuscular Volume 94.4 fL (80.0-100.0); Mean Platelet Volume 9.7 fL (9.4-12.4); Platelet Count 376 K/uL (130-400); RDW Coefficient of Variation 15.2 % (11.5-14.5); RDW Standard Deviation 52.6 fL (36.4-46.3); Red Blood Count 3.58 M/uL (4.20-5.40); White Blood Count 9.17 K/ul (4.8-10.8)
[2024-01-01 06:31] LABS: BUN Creatinine Ratio 5.7 (10-20); Calcium 8.4 mg/dl (8.6-10.3); Creatinine Clr Calc Pharmacy 108.2 ml/min; Est GFR (African American) 116.3 ml/min; Est GFR (Non-African American) 100.3 ml/min; Potassium 3.2 mmol/L (3.5-5.1)
[2024-01-01] MEDS: POTASSIUM CHLORIDE / WTR 10 MEQ/100 ML PLCT IV SCH (08:15)
[2024-01-01 08:43] LABS: Magnesium 1.6 mg/dl (1.7-2.4)
[2024-01-01] MEDS: DIPHENOXYLATE/ATROPINE 2.5/0.025MG TAB PO PRN (09:17)
[2024-01-01] MEDS: MAGNESIUM SULFATE / D5W 1 GM/100 ML BAG IV ONE (10:15)
--- NOTE | 2024-01-01 10:47 | Gastrointestinal Consultation ---
Date of Consultation January 01, 2024 Assessment & Plan (1) Pancolitis: Nonspecific finding on CT scan but in light of persistent symptoms need to consider idiopathic colitis versus drug-induced colitis due to chemotherapy. Recommended colonoscopy to further investigate CT scan findings. Patient is somewhat reluctant and concerned of potential risks in the setting of colitis. I reassured her that the risk was low and and a significant complication is unlikely in this setting. She is asked me to contact her oncologist at [facility] for their input. I am waiting for return call. (2) Intractable diarrhea: In addition to colitis the possibility of bile salt malabsorption poss related to her hepatobiliary surgery could be causing her symptoms. While we await her decision regarding colonoscopy recommend empirically starting cholestyramine 4 g at bedtime in 8 ounces of water. History of Present Illness Reason for Consultation: Intractable diarrhea Attending Physician: Wilfred Garza History of Present Illness Patient presents with a 4 to 6-week history of profuse watery diarrhea occurring greater than 10 times daily, nocturnal explosive associated with some lower abdominal cramping. Infectious workup has been unrevealing. 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 Onset of diarrhea does not seem to be temporally related to the administration of her chemotherapy. Prior to her recent illness she had no prior GI symptoms. She denies nausea vomiting fever or chills. Last colonoscopy was 2 years ago which was reportedly normal showing no signs of colitis. CT scan of the abdomen on this admission shows some pancolitis. Allergies Allergy/AdvReac Type Severity Reaction Status Date / Time azithromycin Allergy Intermediate Gastrointestinal Verified 11/15/23 09:00 Upset codeine Allergy Intermediate SHAKES AND Verified 11/15/23 09:00 CHEST PAIN morphine Allergy Intermediate HIVES WITH Verified 11/15/23 09:00 DOSE FROM ED ON 04/18/10 citalopram Allergy Mild GI UPSET Verified 11/15/23 09:00 cat dander Allergy Verified 11/15/23 09:00 levofloxacin AdvReac Unknown "FELT Verified 11/15/23 09:00 WEIRD AND PAIN IN THE LEGS" Opioid Analgesics Allergy Unknown SHAKING Uncoded 11/12/23 07:35 ALL OVER, GI UPSET Home Medications Medication Instructions Recorded Confirmed Type aspirin 81 mg capsule 81 mg PO DAILY #30 caps 08/17/22 12/30/23 Rx doxepin 10 mg capsule 10 mg PO PM PRN insomnia #90 caps 11/11/23 12/30/23 Rx sertraline 100 mg tablet 150 mg (1.5 x 100 mg) PO HS #135 12/28/23 12/30/23 Rx tabs Patient History Medical History Anxiety Asthma hx after hospitalization for either pneumonia or bronchitis years ago, no current issues or inhalers C. 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 spenser landeros, [facility] vascular GERD (gastroesophageal reflux disease) hx, no current issues or meds High blood triglycerides hx-no current meds History of anesthesia reaction 07/12/23, liver resection at [facility], pt told they had to bring a rapid response team in for pt 2x during OR/PACU time period, pt unsure of exact details. History of IBS Hx of migraines Hypothyroidism hx-no meds currently Raynaud phenomenon hx, no current issues Renal cyst no further check up Temporomandibular joint disorder just gets pain no locking Surgical History History of cholecystectomy History of colonoscopy History of endoscopic sinus surgery History of esophagogastroduodenoscopy (EGD) History of nasal septoplasty History of resection of liver 07/12/23, [facility], lower lobe Hx of LASIK Family History Mother Family history of diabetes mellitus Arthritis Diabetes Father Family history of diabetes mellitus Diabetes Kidney disease Brother Family history of diabetes mellitus Diabetes Grandfather (Paternal) Family history of diabetes mellitus Grandfather (Maternal) Family hx colonic polyps Uncle Myocardial infarction Aunt Myocardial infarction Coronary heart disease Grandmother Breast cancer Sister No problems noted. Sister No problems noted. 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 Beliefs That Will Affect Care: None marital status: Single Current Living Situation: Alone current occupational status: employed current occupation: HR Relations Coordinator Feels Safe at Home: Yes Childhood Exposure to Second-Hand Smoke: No Diet: regular caffeine: No during the past year weight has: remained stable Dental Care, Regularly: Yes Physical Activity Frequency: Daily Seatbelt Use: sometimes Sunscreen Use: Yes Assistive Devices: None Review of Systems Review of Systems: No fever No chills No SOB No CP All other systems negative except as per HPI Physical Exam Physical Exam: Eyes; anicteric HENT No masses Chest clear to A Cor S1, S2 physiologic Abd: softer nontender no masses Ext no edema Results & Data Vital Signs (Past 12 Hours) Vital Signs Temp Pulse Pulse Resp BP Pulse Ox O2 Del Method 01/01/24 07:47 36.7 C 91 H 16 131/88 94 Room Air 01/01/24 07:00 91 H 01/01/24 03:41 36.8 C 80 20 130/77 95 Room Air 01/01/24 00:40 36.6 C 82 20 128/77 95 Room Air Laboratory Results Hemoglobin 11.5 creatinine 33.8 Potassium 3.2 Magnesium [address] scan impression 1. There is evidence of a nonspecific pancolitis. Correlate clinically. 2. There is postsurgical change from right lobe hepatic resection. 3. There is heterogeneity along the hepatic resection margin, with a 4.4 cm focus of lobular irregularity. Although this could represent postsurgical change, a recurrent or residual lesion is not excluded. Correlate with any prior postoperative imaging studies. 4. The bladder wall appears thickened. Correlate with clinical findings and urinalysis. 5. There are numerous mildly enlarged right-sided mesenteric lymph nodes. These are pathologically indeterminate and may be reactive. Attention follow-up is recommended. PG Care Time/CCT Total # of Minutes Spent Total Time Spent with Patient: Total time spent is greater than 50% in coordination of care (as documented) at patient's floor/unit and/or counseling patient: Coding Level of Care Code 01091 IN/OBS CONSULT LVL 4,60M Diagnoses Pancolitis K51.00 Intractable diarrhea R19.7
[2024-01-01] MEDS: COLESTIPOL HCL 1 GM TAB PO SCH (11:05)
--- NOTE | 2024-01-01 13:42 | Hospitalist Progress Note ---
Date of Service January 01, 2024 Assessment & Plan (1) Pancolitis: Plan: Patient reported to ED on 12/29 with complaints of nausea, vomiting, and abdominal pain. etiology: chemotherapy side effect vs viral infx CTAP 12/29 reviewed: nonspecific pancolitis, heterogeneity along hepatic margin with 4.4cm focus of lobular irregularity. could represent post surgical changes, recurrent/residual lesion not excluded CTA 12/29 reviewed:no acute abnormality and in particular no evidence of PE Last chemotherapy 12/16. actively follows with oncology C diff and GI Panel negative 12/30 Fecal calprotectin and pancreatic elastase pending CBC reviewed 12/31: WBC WNL 9.17, hgb 11.5 BMP reviewed 12/31: potassium 3.2, mag 1.6 -repleted potassium and magnesium 12/31 IVF Clear liquid diet, advance as tolerated Probiotic IV PPI daily discontinued abx due to negative infectious workup and could be exacerbating symptoms added Lomotil prn along with Imodium prn GI consulted 12/31, appreciate recommendations colonoscopy if okay from an oncology standpoint Questran 4g HS in 8 oz of water AM CBC, BMP Plan Mental health: Zoloft Diet: clear liquid DVT prophylaxis: SCD's Code status: full Disposition: continued inpatient stay managing symptoms Admission and Anticipated Discharge Date Admission Date: December 30, 2023 Subjective Patient seen and examined this morning. She still is complaining of frequent bowel movements and abdominal cramping. She is beginning to be frustrated by her symptoms as she feels nothing is helping. She denies chest pain or SOB. Physical Exam 2 Constitutional: WD/WN, vitals as above Eyes: PERRL, conjunctivae normal, anicteric sclerae Respiratory: normal respiratory effort, lungs clear to auscultation Cardiovascular: RRR, no murmur, no edema Gastrointestinal (Abdomen): +BS, generalized abdominal tenderness to palpation Psychiatric: A+Ox3, euthymic affect Results & Data Results & Data Vital Signs (Past 12 Hours) Vital Signs Temp Pulse Pulse Resp BP Pulse Ox O2 Del Method 01/01/24 07:47 36.7 C 91 H 16 131/88 94 Room Air 01/01/24 07:00 91 H 01/01/24 03:41 36.8 C 80 20 130/77 95 Room Air Laboratory Results 01/01/24 05:33 08/10/24 05:33 PG Care Time/CCT Total # of Minutes Spent Total Time Spent with Patient: Total time spent is greater than 50% in coordination of care (as documented) at patient's floor/unit and/or counseling patient: Coding Level of Care Code 77912 SUB INP/OBS CARE 3/50MIN Diagnoses Pancolitis K51.00
[2024-01-01] MEDS: CHOLESTYRAMINE LIGHT 4 GM PKT PO SCH (21:11)
[2024-01-02 06:37] LABS: Hematocrit (blood only) 31.2 % (37.0-47.0); Hemoglobin 10.6 g/dl (12.0-16.0); Mean Corpuscular Hemoglobin 32.3 pg (25.0-34.0); Mean Corpuscular Volume 95.1 fL (80.0-100.0); Mean Platelet Volume 9.4 fL (9.4-12.4); Platelet Count 338 K/uL (130-400); RDW Coefficient of Variation 15.2 % (11.5-14.5); RDW Standard Deviation 52.3 fL (36.4-46.3); Red Blood Count 3.28 M/uL (4.20-5.40); White Blood Count 8.41 K/ul (4.8-10.8)
[2024-01-02 06:56] LABS: Creatinine Clr Calc Pharmacy 139.1 ml/min; Est GFR (African American) 129.9 ml/min; Est GFR (Non-African American) 112.1 ml/min; Potassium 3.5 mmol/L (3.5-5.1)
--- NOTE | 2024-01-02 09:16 | Gastroenterology Progress Note ---
Date of Service January 02, 2024 Assessment & Plan (1) Intractable diarrhea: Plan: Clinically improving on first dose of cholestyramine supports a possible diagnosis of bile salt malabsorption. (2) Pancolitis: Plan: CT scan imaging is nonspecific however would benefit from ultimate colonoscopy. This may be able to be done as an outpatient if continues to improve on cholestyramine Admission and Anticipated Discharge Date Admission Date: December 30, 2023 Subjective Less frequent diarrhea and more formed since starting cholestyramine. Denies shortness of breath or chest pain or abdominal pain Physical Exam Physical Exam: No acute distress afebrile Respiratory rate regular Cardiac rate regular Abdomen soft nontender Results & Data Results & Data Vital Signs (Past 12 Hours) Vital Signs Temp Pulse Pulse Pulse Resp BP Pulse Ox 01/02/24 08:22 01/02/24 08:21 79 01/02/24 08:00 36.9 C 78 16 128/88 96 01/02/24 04:01 36.6 C 81 20 138/81 95 01/02/24 00:19 01/01/24 23:44 36.8 C 88 20 131/77 96 01/01/24 21:45 85 O2 Del Method 01/02/24 08:22 Room Air 01/02/24 08:21 01/02/24 08:00 Room Air 01/02/24 04:01 Room Air 01/02/24 00:19 Room Air 01/01/24 23:44 Room Air 01/01/24 21:45 PG Care Time/CCT Total # of Minutes Spent Total Time Spent with Patient: Total time spent is greater than 50% in coordination of care (as documented) at patient's floor/unit and/or counseling patient: Coding Level of Care Code 87165 SUB INP/OBS CARE 2/35MIN Diagnoses Intractable diarrhea R19.7 Pancolitis K51.00
--- NOTE | 2024-01-02 10:26 | Hospitalist Progress Note ---
Date of Service January 02, 2024 Assessment & Plan (1) Pancolitis: Plan: Patient reported to ED on 12/29 with complaints of nausea, vomiting, and abdominal pain. etiology: chemotherapy side effect vs viral infx CTAP 12/29 reviewed: nonspecific pancolitis, heterogeneity along hepatic margin with 4.4cm focus of lobular irregularity. could represent post surgical changes, recurrent/residual lesion not excluded CTA 12/29 reviewed:no acute abnormality and in particular no evidence of PE Last chemotherapy 12/16. actively follows with oncology C diff and GI Panel negative 12/30 Fecal calprotectin and pancreatic elastase pending CBC reviewed 01/01: WBC WNL 8.41, hgb 10.6 BMP reviewed 12/31: potassium 3.2 -repleted potassium 01/01 IVF Probiotic IV PPI daily discontinued abx due to negative infectious workup and could be exacerbating symptoms added Lomotil prn along with Imodium prn added Bentyl prn GI consulted 12/31, appreciate recommendations colonoscopy if okay from an oncology standpoint Questran 4g HS in 8 oz of water advanced diet to low residue consider outpatient colonoscopy if patient continues to improve on Questran AM CBC, BMP, Magnesium Plan Mental health: Zoloft Diet: Low residue DVT prophylaxis: SCD's Code status: full Disposition: continued inpatient stay managing symptoms Admission and Anticipated Discharge Date Admission Date: December 30, 2023 Subjective Patient seen and examined this morning. Patient has experienced improvement in her diarrhea and abdominal cramping with the Questran. She was been doing okay on a clear liquid diet. Denies any new symptoms. Physical Exam Constitutional: WD/WN, vitals as above Eyes: PERRL, conjunctivae normal, anicteric sclerae Respiratory: normal respiratory effort, lungs clear to auscultation Cardiovascular: RRR, no murmur, no edema Gastrointestinal (Abdomen): +BS, + lower abdominal tenderness Psychiatric: A+Ox3, euthymic affect Results & Data Results & Data Vital Signs (Past 12 Hours) Vital Signs Temp Pulse Pulse Pulse Resp BP Pulse Ox 01/02/24 08:22 01/02/24 08:21 79 01/02/24 08:00 36.9 C 78 16 128/88 96 01/02/24 04:01 36.6 C 81 20 138/81 95 01/02/24 00:19 01/01/24 23:44 36.8 C 88 20 131/77 96 O2 Del Method 01/02/24 08:22 Room Air 01/02/24 08:21 01/02/24 08:00 Room Air 01/02/24 04:01 Room Air 01/02/24 00:19 Room Air 01/01/24 23:44 Room Air PG Care Time/CCT Total # of Minutes Spent Total Time Spent with Patient: Total time spent is greater than 50% in coordination of care (as documented) at patient's floor/unit and/or counseling patient: Coding Level of Care Code 11956 SUB INP/OBS CARE 2/35MIN Diagnoses Pancolitis K51.00
[2024-01-02] MEDS: DICYCLOMINE HCL 10 MG CAP PO PRN (12:58)
[2024-01-03 06:44] LABS: Hematocrit (blood only) 31.9 % (37.0-47.0); Hemoglobin 10.9 g/dl (12.0-16.0); Mean Corpuscular Hemoglobin 32.2 pg (25.0-34.0); Mean Corpuscular Hgb Conc 34.2 g/dL (32.0-36.0); Mean Corpuscular Volume 94.1 fL (80.0-100.0); Mean Platelet Volume 9.1 fL (9.4-12.4); Platelet Count 406 K/uL (130-400); RDW Coefficient of Variation 14.9 % (11.5-14.5); RDW Standard Deviation 51.1 fL (36.4-46.3); Red Blood Count 3.39 M/uL (4.20-5.40); White Blood Count 10.77 K/ul (4.8-10.8)
[2024-01-03 07:02] LABS: BUN Creatinine Ratio 5.1 (10-20); Calcium 8.1 mg/dl (8.6-10.3); Creatinine Clr Calc Pharmacy 117.9 ml/min; Est GFR (Non-African American) 106.1 ml/min; Magnesium 1.3 mg/dl (1.7-2.4); Potassium 3.3 mmol/L (3.5-5.1)
[2024-01-03] MEDS: POTASSIUM CHLORIDE CRTAB 20 MEQ TABCR PO STA (08:58)
[2024-01-03] MEDS: MAGNESIUM SULFATE / D5W 1 GM/100 ML BAG IV SCH (09:06)
--- NOTE | 2024-01-03 10:23 | Gastroenterology Progress Note ---
Date of Service January 03, 2024 Assessment & Plan (1) Intractable diarrhea: Plan: 53 year old female with history of Intrahepatic cholangiocarcinomastage pT1b pN0 s/p right liver lobectomy and hepatic artery nodes biopsy 07/12/23 s/p 4 cycles of adjuvant capecitabine, follow up imaging showed local recurrence now being treated w/ adjuvant chemotherapy (gemcitabine,cisplatin and durvalumab) admitted through the ED w/ abd pain nausea/vomiting and diarrhea. CT imaging showing pancolitis, stool biofired and c.diff are negative, fecal elastase and calprotectin are pending. Colonoscopy in 2020 w/ proctitis. She initially improved with Questran, may continue, however, now notes return of loose urgent stools. Follow fecal elastase and calprotectin We are happy to arrange a colonoscopy May continue Questran as dosed Continue a liquid diet today I sent a TigerText to Dr. Rodriguez to discuss - He noted to proceed with endoscopic as indicated as symptoms may be related to immunotherapy I spent a total of 50 minutes on the date of service in review of patient's record, and previously obtained information in person and appropriate medical visit, discussion and education of plan, with patient and/or caregiver, placing orders for tests/referral/procedures as medically necessary and documentation of pertinent clinical information in patient's medical records for their visit today. Admission and Anticipated Discharge Date Admission Date: December 30, 2023 Supervising Physician Co-Signing Physician Notes I saw and examined this patient with our nurse practitioner and agree with her assessment and plan. No acute distress abdomen soft nontender. Persistent diarrhea but a little bit improved on cholestyramine. Will proceed with colonoscopy in a.m. to exclude underlying colitis or other pathology. Subjective Pt was seen and evaluated, chart reviewed. Initial response to Questran. Now some return of looser, frequent stools. Suggests he had about 10-12 loose bowel movements in the last 24 hours. No black or bloody stools. Awaiting oncology input. Stool calprotectin pending Fecal elastase pending C.diff negative Stool biofire negative CTAP 2023: there is evidence of a nonspecific pancolitis. Correlate clinically. Colon path 2020: proctitis w/ ulceration Colonoscopy 2020: - Erythematous and [id number] mucosa in the rectum. Biopsied. - Non-bleeding internal hemorrhoids. EGD 2018: - Normal esophagus. - Gastritis. Biopsied. - Normal examined duodenum. Review of Systems Review of Systems: All other findings negative except as noted in HPI. Physical Exam Constitutional: WD/WN, vitals as above Respiratory: normal respiratory effort, lungs clear to auscultation Cardiovascular: RRR, no murmur, no edema Gastrointestinal (Abdomen): normal bowel sounds, soft, nontender, no hepatosplenomegaly Skin: no rashes, warm and dry Results & Data Results & Data Vital Signs (Past 12 Hours) Vital Signs Temp Pulse Pulse Resp BP Pulse Ox O2 Del Method 01/03/24 08:19 36.7 C 83 16 130/81 96 Room Air 01/03/24 08:05 79 01/03/24 02:13 36.8 C 90 16 125/80 96 Room Air 01/02/24 22:37 36.7 C 84 16 132/83 96 Room Air Laboratory Results 01/03/24 Range/Units 06:23 WBC 10.77 (4.8-10.8) K/ul RBC 3.39 L (4.20-5.40) M/uL Hgb 10.9 L (12.0-16.0) g/dl Hct 31.9 L (37.0-47.0) % MCV 94.1 (80.0-100.0) fL MCH 32.2 (25.0-34.0) pg MCHC 34.2 (32.0-36.0) g/dL RDW Std Deviation 51.1 H (36.4-46.3) fL RDW Coeff of Remi 14.9 H (11.5-14.5) % Plt Count 406 H (130-400) K/uL MPV 9.1 L (9.4-12.4) fL Sodium 139 (136-145) mmol/L Potassium 3.3 L (3.5-5.1) mmol/L Chloride 105 (98-107) mmol/L Carbon Dioxide 29 (21-32) mmol/L Anion Gap 5 (3-11) BUN 3 L (6-23) mg/dl Creatinine 0.59 L (0.6-1.2) mg/dl Est Cr Clr Drug Dosing 117.9 ml/min Est GFR ( Amer) 123.0 ml/min Est GFR (Non-Af Amer) 106.1 ml/min BUN/Creatinine Ratio 5.1 L (10-20) Glucose 192 H (70-99(Fasting)) mg/dl Calcium 8.1 L (8.6-10.3) mg/dl Magnesium 1.3 L (1.7-2.4) mg/dl Lipase 377 H (11-82) U/L PG Care Time/CCT Total # of Minutes Spent Total Time Spent with Patient: Total time spent is greater than 50% in coordination of care (as documented) at patient's floor/unit and/or counseling patient: Coding Level of Care Code 49047 SUB INP/OBS CARE 3/50MIN Diagnoses Intractable diarrhea R19.7
--- NOTE | 2024-01-03 10:56 | Hospitalist Progress Note ---
Date of Service January 03, 2024 Assessment & Plan (1) Pancolitis: Plan: Patient reported to ED on 12/29 with complaints of nausea, vomiting, and abdominal pain. CTAP: nonspecific pancolitis, heterogeneity along hepatic margin with 4.4cm focus of lobular irregularity. could represent post surgical changes, recurrent/residual lesion not excluded - etiology: chemotherapy side effect vs viral infx CTA:no acute abnormality and in particular no evidence of PE Last chemotherapy 12/16. actively follows with oncology - Dr. Michael Lion diff and GI Panel negative 12/30 Fecal calprotectin and pancreatic elastase pending IVF - recieved 7+L on admission, tolerating PO intake. will discontinue Probiotic IV PPI daily discontinued abx due to negative infectious workup and could be exacerbating symptoms has Lomotil prn along with Imodium prn - pt very hesitant to take these stating she normally needs miralax with chemo added Bentyl prn GI consulted 12/31, appreciate recommendations colonoscopy if okay from an oncology standpoint - plan for 01/03 Questran 4g HS in 8 oz of water continue a liquid diet Mag and K replaced 01/02 AM CBC, BMP, Magnesium Plan Mental health: continue Zoloft, doxepin on hold History of right vertebral artery dissection, fibromuscular dysplasia-Home aspirin is on hold. Is to have follow-up carotid artery duplex in 03/2024 with vascular surgery at [facility] DVT prophylaxis: SCD's Disposition: continued inpatient stay colonoscopy tomorrow Admission and Anticipated Discharge Date Admission Date: December 30, 2023 Supervising Physician Co-Signing Physician Notes PA Supervision Note: I did not personally see or examine the patient today, but I verified all cooper points of ALEXANDRE Stubbs's assessment and plan with the following exceptions/additions: None Subjective Patient lying in bed, very frustrated that her oncology team has not called the GI team back. More diarrhea overnight, tolerated breakfast but does not want her diet advanced because that caused too much pain. Lives alone and does not like to burden others -would prefer colonscopy here if possible. Tele - SR 90 Review of Systems Review of Systems: All systems reviewed & are unremarkable except as noted in Subjective Physical Exam Physical Exam: General: NAD, VS as above Resp: normal respiratory effort, lungs clear to auscultation CV: RRR, no murmur, Abd: normal bowel sounds, mild gross tender, no hepatosplenomegaly Extremities: Moves all extremities, no edema Neuro: A&O x3, Skin: intact, no lesions noted Results & Data Results & Data Vital Signs (Past 12 Hours) Vital Signs Temp Pulse Pulse Resp BP Pulse Ox O2 Del Method 01/03/24 08:19 36.7 C 83 16 130/81 96 Room Air 01/03/24 08:05 79 01/03/24 02:13 36.8 C 90 16 125/80 96 Room Air Laboratory Results CBC, chemistrty, mag and lipase reviewed PG Care Time/CCT Total # of Minutes Spent Total Time Spent with Patient: Total time spent is greater than 50% in coordination of care (as documented) at patient's floor/unit and/or counseling patient: Coding Level of Care Code 64751 SUB INP/OBS CARE 2/35MIN Diagnoses Pancolitis K51.00
[2024-01-03] MEDS: LAVAGE SOLUTION 4000ML PO SCH (15:22)
[2024-01-03] MEDS: HEPARIN 100 UNIT/ML 5ML FLUSH FLUSH PRN (20:05)
[2024-01-04 07:11] LABS: Hematocrit (blood only) 33.6 % (37.0-47.0); Hemoglobin 11.5 g/dl (12.0-16.0); Mean Corpuscular Hemoglobin 31.9 pg (25.0-34.0); Mean Corpuscular Hgb Conc 34.2 g/dL (32.0-36.0); Mean Corpuscular Volume 93.3 fL (80.0-100.0); Mean Platelet Volume 9.5 fL (9.4-12.4); Platelet Count 458 K/uL (130-400); RDW Standard Deviation 51.6 fL (36.4-46.3)
[2024-01-04 07:32] LABS: Albumin Globulin Ratio 1.3 (0.9-2); Albumin Level 3.1 gm/dl (3.4-5.0); BUN Creatinine Ratio 6.6 (10-20); Bilirubin,Total 0.3 mg/dl (0.2-1.0); Calcium 8.2 mg/dl (8.6-10.3); Est GFR (African American) 121.7 ml/min; Globulin 2.4 gm/dl (2.5-4.0); Magnesium 1.8 mg/dl (1.7-2.4); Potassium 3.6 mmol/L (3.5-5.1); Total Protein 5.5 gm/dl (6.0-8.3)
[2024-01-04] MEDS: SODIUM CHLORIDE 0.9% 500 ML IV SCH ×2 (08:43→15:12)
--- NOTE | 2024-01-04 09:02 | Gastroenterology Progress Note ---
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 CT imaging showing pancolitis, stool biofired and c.diff are negative, fecal elastase and calprotectin are pending. Colonoscopy in 2020 w/ proctitis. She initially improved with Questran, may continue, however, now notes return of loose urgent stools. NPO Colonoscopy this AM Follow fecal elastase and calprotectin We appreciate assistance in the management of any serological abnormality and corrections to include: hemoglobin >7, INR <2, platelets >50,000, potassium levels >3.5 but <5.3, and sodium levels within 5 points of the reference range prior to endoscopic evaluation. Thank you for allowing us to participate in the care of this patient. Please call with any acute changes, questions or concerns. Please see addendum below with additional recommendation from my supervising physician. Admission and Anticipated Discharge Date Admission Date: December 30, 2023 Supervising Physician Co-Signing Physician Notes I saw and examined this patient with our nurse practitioner and agree with her assessment and plan Subjective Pt was seen and evaluated, chart reviewed. Completed nearly all prep Stools are liquid, clear. No black or blood with prep. Is NPO. Review of Systems Review of Systems: All other findings negative except as noted in HPI. Physical Exam Constitutional: WD/WN, vitals as above Respiratory: normal respiratory effort, lungs clear to auscultation Cardiovascular: Rate/Rhythm: regular rate and regular rhythm Gastrointestinal (Abdomen): normal bowel sounds, soft, nontender, no hepatosplenomegaly Skin: no rashes, warm and dry Results & Data Results & Data Vital Signs (Past 12 Hours) Vital Signs Temp Pulse Pulse Resp BP Pulse Ox O2 Del Method 01/04/24 08:35 36.4 C L 95 H 16 128/84 97 Room Air 01/04/24 08:28 36.6 C 92 H 16 125/81 96 Room Air 01/04/24 02:18 36.7 C 84 16 137/84 95 Room Air 01/03/24 22:58 36.7 C 91 H 16 138/89 96 Room Air 01/03/24 22:38 81 Laboratory Results 01/04/24 01/04/24 01/03/24 Range/Units 08:40 06:32 06:23 WBC 9.40 (4.8-10.8) K/ul RBC 3.60 L (4.20-5.40) M/uL Hgb 11.5 L (12.0-16.0) g/dl Hct 33.6 L (37.0-47.0) % MCV 93.3 (80.0-100.0) fL MCH 31.9 (25.0-34.0) pg MCHC 34.2 (32.0-36.0) g/dL RDW Std Deviation 51.6 H (36.4-46.3) fL RDW Coeff of Remi 15.0 H (11.5-14.5) % Plt Count 458 H (130-400) K/uL MPV 9.5 (9.4-12.4) fL Sodium 138 (136-145) mmol/L Potassium 3.6 (3.5-5.1) mmol/L Chloride 104 (98-107) mmol/L Carbon Dioxide 28 (21-32) mmol/L Anion Gap 6 (3-11) BUN 4 L (6-23) mg/dl Creatinine 0.61 (0.6-1.2) mg/dl Est Cr Clr Drug Dosing 114.0 ml/min Est GFR ( Amer) 121.7 ml/min Est GFR (Non-Af Amer) 105.0 ml/min BUN/Creatinine Ratio 6.6 L (10-20) Glucose 88 (70-99(Fasting)) mg/dl Calcium 8.2 L (8.6-10.3) mg/dl Magnesium 1.8 (1.7-2.4) mg/dl Total Bilirubin 0.3 (0.2-1.0) mg/dl AST 22 (13-39) U/L ALT 13 (7-52) U/L Alkaline Phosphatase 149 H (34-104) U/L Total Protein 5.5 L (6.0-8.3) gm/dl Albumin 3.1 L (3.4-5.0) gm/dl Globulin 2.4 L (2.5-4.0) gm/dl Albumin/Globulin Ratio 1.3 (0.9-2) Lipase 377 H (11-82) U/L POC Ur Test NEG (NEG) PG Care Time/CCT Total # of Minutes Spent Total Time Spent with Patient: Total time spent is greater than 50% in coordination of care (as documented) at patient's floor/unit and/or counseling patient: Coding Level of Care Code None Diagnoses Intractable diarrhea R19.7
--- NOTE | 2024-01-04 10:08 | GI REPORT ---
[facility] Patient: MICHELA HIDALGO : 1970 Sex at : Female Age: 53 Years Procedure: Colonoscopy Date: 01/04/2024 Attending Physician: Micheal Wiggins MD Referring MD: Prema Hilton Md Indications: - Screening for colorectal malignant neoplasm - Chronic diarrhea Medications: - Monitored Anesthesia Care - See the Anesthesia note for documentation of the administered medications Complications: - No immediate complications., No immediate complications. Estimated blood loss: Minimal., No immediate complications. Estimated blood loss: None. Estimated Blood Loss: - Estimated blood loss: None. - Estimated blood loss was minimal. Procedure: - Prior to the procedure, a History and Physical was performed, and patient medications, allergies and sensitivities were reviewed. The patient's tolerance of previous anesthesia was reviewed. - The risks and benefits of the procedure and the sedation options and risks were discussed with the patient. All questions were answered and informed consent was obtained. - ASA Grade Assessment: I - A normal, healthy patient. - Prior Anticoagulants: The patient has taken no anticoagulant or antiplatelet agents. - The adult colonoscope was introduced through the anus and advanced to the transverse colon. - The colonoscopy was performed without difficulty. - The patient tolerated the procedure well. - The quality of the bowel preparation was adequate. Findings: - The perianal and digital rectal examinations were normal. - The colon (entire examined portion) and rectum (on retroflexion) appeared normal. No biopsies or other specimens were collected for this exam. - There was diffuse colitis throughout the colon examined. There was diffuse congestion and erythema micro ulceration with friability consistent with mild to moderate colitis. Examination was limited to the rectum sigmoid descending and transverse colon due to inflammatory changes. Biopsies were taken with a cold forceps for histology. Impression: - The entire examined colon and rectum (on retroflexion) are normal. No specimens collected. - Congested mucosa Biopsied. Recommendation: - Resume previous diet. - Repeat colonoscopy in 10 years for screening purposes. Procedure Code(s): - 76830-61, Colonoscopy, flexible; with biopsy, single or multiple Diagnosis Code(s): - Z12.11, Encounter for screening for malignant neoplasm of colon - K52.9, Noninfective gastroenteritis and colitis, unspecified - K63.89, Other specified diseases of intestine CPT(R) - 2023 copyright [employer]. All Rights Reserved. The CPT codes, CCI edits and ICD codes generated are intended as suggestions and were generated based on input data. These codes are preliminary and upon ore sampler review may be revised to meet current compliance and payer requirements. The provider is responsible for the final determination of appropriate codes, and modifiers. Micheal Wiggins MD This document has been electronically signed. Note Initiated:01/04/2024 Note Completed:01/04/2024 10:07 AM \\[email or web address]\Results\LIVE\[id number]
[2024-01-04] MEDS ORDERED: methylPREDNISolone 125 MG/2 ML VIAL IV SCH (12:00)
[2024-01-04] MEDS: methylPREDNISolone 100 MG in SYRINGE 0 ML IV SCH (13:07)
--- NOTE | 2024-01-04 13:15 | Anesthesiology Progress Note ---
Date of Service January 04, 2024 Anesthesia Post Procedure Vital Signs Vital Signs: Temp Pulse Pulse Resp BP Pulse Ox O2 Del Method 01/04/24 11:13 36.7 C 76 16 140/82 99 Room Air 01/04/24 10:23 79 16 141/75 H 98 Room Air 01/04/24 10:08 82 16 140/77 98 Room Air 01/04/24 09:53 89 16 125/78 97 Room Air 01/04/24 08:35 36.4 C L 95 H 16 128/84 97 Room Air 01/04/24 08:28 36.6 C 92 H 16 125/81 96 Room Air 01/04/24 02:18 36.7 C 84 16 137/84 95 Room Air 01/03/24 22:58 36.7 C 91 H 16 138/89 96 Room Air 01/03/24 22:38 81 01/03/24 20:28 36.7 C 88 20 142/84 H 96 Room Air 01/03/24 13:47 92 H Pain Intensity Abdomen: Pain Intensity: 5 Transfer of Care Handoff Completed per policy Notes Mental Status: alert / awake / arousable Patient Amnestic to Procedure: Yes Nausea / Vomiting: adequately controlled Pain: adequately controlled Airway Patency, RR, SpO2: stable & adequate BP & HR: stable & adequate Hydration State: stable & adequate Anesthetic Complications: no major complications apparent
--- NOTE | 2024-01-04 14:29 | Hospitalist Progress Note ---
Date of Service January 04, 2024 Assessment & Plan (1) Pancolitis: Plan: Patient reported to ED on 12/29 with complaints of nausea, vomiting, and abdominal pain. CTAP: nonspecific pancolitis, heterogeneity along hepatic margin with 4.4cm focus of lobular irregularity. could represent post surgical changes, recurrent/residual lesion not excluded - etiology: chemotherapy side effect vs viral infx CTA:no acute abnormality and in particular no evidence of PE Last chemotherapy 12/16. actively follows with oncology - Dr. Michael Lion diff and GI Panel negative 12/30 Fecal calprotectin and pancreatic elastase pending IVF - recieved 7+L on admission, tolerating PO intake. will discontinue Probiotic, IV PPI daily discontinued abx due to negative infectious workup and could be exacerbating symptoms has Lomotil prn along with Imodium prn - pt very hesitant to take these stating she normally needs miralax with chemo added Bentyl prn GI consulted 12/31, appreciate recommendations colonoscopy 01/03 - diffuse cololitis, limited exam due to inflammatory changes. 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 Is to have follow-up carotid artery duplex in 03/2024 with vascular surgery at [place] DVT prophylaxis: SCD's Disposition: continued inpatient stay Admission and Anticipated Discharge Date Admission Date: December 30, 2023 Supervising Physician Co-Signing Physician Notes PA Supervision Note: I did not personally see or examine the patient today, but I verified all cooper points of ALEXANDRE Stubbs's assessment and plan with the following exceptions/additions: None Subjective Patient seen sitting in bed after lunch. Reports more cramping since colonoscopy that got a little worse with eating (ice cream and tomato soup) Hesitant to start steroids stating "tore up my stomach" Physical Exam Physical Exam: General: NAD, VS as above Resp: normal respiratory effort, lungs clear to auscultation CV: RRR, no murmur, Abd: hypoactive bowel sounds, pt did not allow me to palpate her abdomen due to pain Extremities: Moves all extremities, no edema Neuro: A&O x3, Skin: intact, no lesions noted Results & Data Results & Data Vital Signs (Past 12 Hours) Vital Signs Temp Pulse Resp BP Pulse Ox O2 Del Method 01/04/24 11:13 36.7 C 76 16 140/82 99 Room Air 01/04/24 10:23 79 16 141/75 H 98 Room Air 01/04/24 10:08 82 16 140/77 98 Room Air 01/04/24 09:53 89 16 125/78 97 Room Air 01/04/24 08:35 36.4 C L 95 H 16 128/84 97 Room Air 01/04/24 08:28 36.6 C 92 H 16 125/81 96 Room Air Laboratory Results cbc and chemistry reviewed PG Care Time/CCT Total # of Minutes Spent Total Time Spent with Patient: Total time spent is greater than 50% in coordination of care (as documented) at patient's floor/unit and/or counseling patient: Coding Level of Care Code 78067 SUB INP/OBS CARE 2/35MIN Diagnoses Pancolitis K51.00
[2024-01-04] MEDS: LIDOCAINE 2% 2 ML VIAL/AMP(20MG/ML) INFIL ONE (15:12)
[2024-01-04] MEDS: PROPOFOL IV EMULSION 10 MG/ML 20 ML VIAL IV ONE (15:13)
[2024-01-04] MEDS: methylPREDNISolone 50 MG in SYRINGE 0 ML IV SCH (15:57)
[2024-01-05 06:36] LABS: Hemoglobin 11.6 g/dl (12.0-16.0); Mean Corpuscular Hemoglobin 32.3 pg (25.0-34.0); Mean Corpuscular Hgb Conc 35.2 g/dL (32.0-36.0); Mean Corpuscular Volume 91.9 fL (80.0-100.0); Mean Platelet Volume 9.6 fL (9.4-12.4); Platelet Count 489 K/uL (130-400); RDW Coefficient of Variation 14.6 % (11.5-14.5); RDW Standard Deviation 49.2 fL (36.4-46.3); Red Blood Count 3.59 M/uL (4.20-5.40); White Blood Count 9.45 K/ul (4.8-10.8)
[2024-01-05 07:05] LABS: BUN Creatinine Ratio 11.7 (10-20); Calcium 8.3 mg/dl (8.6-10.3); Creatinine Clr Calc Pharmacy 115.9 ml/min; Est GFR (African American) 122.3 ml/min; Est GFR (Non-African American) 105.5 ml/min; Potassium 3.9 mmol/L (3.5-5.1)
--- NOTE | 2024-01-05 10:30 | Gastroenterology Progress Note ---
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 CT imaging showing pancolitis, stool biofire and c.diff are negative, fecal elastase and calprotectin are pending. Colonoscopy in 2020 w/ proctitis. Repeat colonoscopy with diffuse congestion and erythema micro ulceration with friability consistent with mild to moderate colitis, biopsies worrisome for inflammatory bowel disease. Continue dairy free, liquid diet as tolerated Will discuss pathology results with attending Continue IV steroids today Pending response, transition to oral steroid taper 01/06/24 Will discuss initiating oral mesalamine with attending Please screen for TB, Hepatitis A IGM/IGG, Hepatitis B IGM/IGG Follow fecal elastase and calprotectin I spent a total of 55 minutes on the date of service in review of patient's record, and previously obtained information in person and appropriate medical visit, discussion and education of plan, with patient and/or caregiver, placing orders for tests/referral/procedures as medically necessary and documentation of pertinent clinical information in patient's medical records for their visit today.Thank you for allowing us to participate in the care of this patient. Please call with any acute changes, questions or concerns. Please see addendum below with additional recommendation from my supervising physician. Admission and Anticipated Discharge Date Admission Date: December 30, 2023 Supervising Physician Co-Signing Physician Notes I saw and examined this patient with our nurse practitioner and agree with her assessment and plan. Less abdominal pain today abdomen cutter machine tender in the lower quadrants. Biopsies consistent with colitis difficult to distinguish between ulcerative colitis and drug-induced colitis however treatment at this point would be similar. Continue IV steroids advance diet as tolerated. Possible discharge in 24 to 48 hours on oral prednisone. Subjective Pt was seen and evaluated, chart reviewed. Feeling well. Has persistent cramping. Started IV steroids. Tolerating liquid diet but notes tolerance concerns with dairy. Bx 2023: FINAL DIAGNOSIS Colon, random, biopsy: - Active chronic colitis with ulceration, crypt abscesses, and architectural distortion - Negative for granulomas and dysplasia Comment: The overall features are worrisome for inflammatory bowel disease (ulcerative colitis). Clinical correlation required. Colonoscopy 2023: There was diffuse colitis throughout the colon examined. There was diffuse congestion and erythema micro ulceration with friability consistent with mild to moderate colitis. Examination was limited to the rectum sigmoid descending and transverse colon due to inflammatory changes. Biopsies were taken with a cold forceps for histology. Review of Systems Review of Systems: All other findings negative except as noted in HPI. Physical Exam Constitutional: WD/WN, vitals as above Respiratory: normal respiratory effort, lungs clear to auscultation Cardiovascular: Rate/Rhythm: regular rate and regular rhythm Gastrointestinal (Abdomen): Inspection/Auscultation: normal bowel sounds Skin: no rashes, warm and dry Results & Data Results & Data Vital Signs (Past 12 Hours) Vital Signs Temp Pulse Pulse Resp BP Pulse Ox O2 Del Method 01/05/24 07:23 36.7 C 92 H 18 143/82 H 97 Room Air 01/05/24 03:11 36.5 C 72 16 148/78 H 97 Room Air 01/04/24 22:58 74 01/04/24 22:52 36.7 C 80 16 138/82 96 Room Air Laboratory Results 01/05/24 01/05/24 Range/Units 05:36 05:35 WBC 9.45 (4.8-10.8) K/ul RBC 3.59 L (4.20-5.40) M/uL Hgb 11.6 L (12.0-16.0) g/dl Hct 33.0 L (37.0-47.0) % MCV 91.9 (80.0-100.0) fL MCH 32.3 (25.0-34.0) pg MCHC 35.2 (32.0-36.0) g/dL RDW Std Deviation 49.2 H (36.4-46.3) fL RDW Coeff of Remi 14.6 H (11.5-14.5) % Plt Count 489 H (130-400) K/uL MPV 9.6 (9.4-12.4) fL Sodium 139 (136-145) mmol/L Potassium 3.9 (3.5-5.1) mmol/L Chloride 105 (98-107) mmol/L Carbon Dioxide 28 (21-32) mmol/L Anion Gap 6 (3-11) BUN 7 (6-23) mg/dl Creatinine 0.60 (0.6-1.2) mg/dl Est Cr Clr Drug Dosing 115.9 ml/min Est GFR ( Amer) 122.3 ml/min Est GFR (Non-Af Amer) 105.5 ml/min BUN/Creatinine Ratio 11.7 (10-20) Glucose 115 H (70-99(Fasting)) mg/dl Calcium 8.3 L (8.6-10.3) mg/dl PG Care Time/CCT Total # of Minutes Spent Total Time Spent with Patient: Total time spent is greater than 50% in coordination of care (as documented) at patient's floor/unit and/or counseling patient: Coding Level of Care Code 43864 SUB INP/OBS CARE 350MIN Diagnoses Intractable diarrhea R19.7
--- NOTE | 2024-01-05 15:47 | Hospitalist Progress Note ---
Date of Service January 05, 2024 Assessment & Plan (1) Pancolitis: Plan: Possible Toxic gastroenteritis/Colitis due to chemo Patient reported to ED on 12/29 with complaints of nausea, vomiting, and abdominal pain. CTAP: nonspecific pancolitis, heterogeneity along hepatic margin with 4.4cm focus of lobular irregularity. could represent post surgical changes, recurrent/residual lesion not excluded - etiology: chemotherapy side effect vs viral infx CTA:no acute abnormality and in particular no evidence of PE Last chemotherapy 12/16. actively follows with oncology - Dr. Michael Lion diff and GI Panel negative 12/30 Fecal calprotectin and pancreatic elastase pending IVF - recieved 7+L on admission, tolerating PO intake. since discontinued Probiotic, IV PPI daily PRN Coniyl GI consulted 12/31, appreciate recommendations colonoscopy 01/03 - diffuse colitis, limited exam due to inflammatory changes. Biopsy from colonoscopy: active chronic colitis with ulceration, crypt abscesses and architectural distortion Methylprednisone BID, hopeful to wean in next 24-48 hr screen for TB, Hep A igG/igM, and Hep B igG/igM (ordered) Diet advanced to low fiber/residue for lunch Mag and K replaced 01/02 and stable Fasting blood sugars have been elevated on AM chemistries - hgbA1c added for AM AM CBC, BMP Plan Mental health: continue Zoloft, doxepin on hold History of right vertebral artery dissection, fibromuscular dysplasia-Home aspirin is on hold. Is to have follow-up carotid artery duplex in 03/2024 with vascular surgery at [place] DVT prophylaxis: SCD's Disposition: continued inpatient stay Admission and Anticipated Discharge Date Admission Date: December 30, 2023 Supervising Physician Co-Signing Physician Notes PA Supervision Note: I did not personally see or examine the patient today, but I verified all cooper points of ALEXANDRE Stubbs's assessment and plan with the following exceptions/additions:none Subjective Patient seen sitting up in the chair tolerating the IV steroids had chicken and rice for lunch, caused worsening cramping. pain before lunch was manageable tele - 90s Review of Systems Review of Systems: All systems reviewed & are unremarkable except as noted in Subjective Physical Exam Physical Exam: General: NAD, VS as above Resp: normal respiratory effort, lungs clear to auscultation CV: RRR, no murmur, Abd: normal bowel sounds, pt did not allow me to palpate her abdomen due to pain Extremities: Moves all extremities, no edema Neuro: A&O x3, Skin: intact, no lesions noted Results & Data Results & Data Vital Signs (Past 12 Hours) Vital Signs Temp Pulse Resp BP Pulse Ox O2 Del Method 01/05/24 15:18 36.9 C 91 H 18 138/83 96 Room Air 01/05/24 11:27 36.4 C L 81 18 141/85 H 98 Room Air 01/05/24 07:23 36.7 C 92 H 18 143/82 H 97 Room Air Laboratory Results CBC and chemistry reviewed PG Care Time/CCT Total # of Minutes Spent Total Time Spent with Patient: Total time spent is greater than 50% in coordination of care (as documented) at patient's floor/unit and/or counseling patient: Coding Level of Care Code 39080 SUB INP/OBS CARE 2/35MIN Diagnoses Pancolitis K51.00
--- NOTE | 2024-01-06 09:26 | Gastroenterology Progress Note ---
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 CT imaging showing pancolitis, stool biofire and c.diff are negative, fecal elastase and calprotectin are pending. Colonoscopy in 2020 w/ proctitis. Repeat colonoscopy with diffuse congestion and erythema micro ulceration with friability consistent with mild to moderate colitis, biopsies worrisome for inflammatory bowel disease. Continue dairy free, low residue diet as tolerated Continue IV steroids while admitted Transition to oral steroid taper at discharge - 40 mg once daily for 2 weeks, then decrease by 5 mg weekly Her oncology team is through [facility] and she may prefer to follow with [facility] GI as Dr. Wiggins is locum staff Please screen for TB, Hepatitis A IGM/IGG, Hepatitis B IGM/IGG Follow fecal elastase and calprotectin I spent a total of 55 minutes on the date of service in review of patient's record, and previously obtained information in person and appropriate medical visit, discussion and education of plan, with patient and/or caregiver, placing orders for tests/referral/procedures as medically necessary and documentation of pertinent clinical information in patient's medical records for their visit today.Thank you for allowing us to participate in the care of this patient. Please call with any acute changes, questions or concerns. Please see addendum below with additional recommendation from my supervising physician. Admission and Anticipated Discharge Date Admission Date: December 30, 2023 Supervising Physician Co-Signing Physician Notes Showing some clinical improvement on IV steroids. Less frequent bowel movements less urgency. Continue to advance diet to low residue lactose-free diet. Continue IV steroids. Upon discharge we will switch to prednisone 40 mg daily. Subjective Pt was seen and evaluated, chart reviewed. Has had 6 BMs since she went to bed last night. Stools are still loose, watery. Less urgent, less frequent. Abd cramping is present. No abd pain. Tolerating low residue, dairy free diet. Bx 2023: Colon, random, biopsy: - Active chronic colitis with ulceration, crypt abscesses, and architectural distortion - Negative for granulomas and dysplasia Comment: The overall features are worrisome for inflammatory bowel disease (c erative colitis). Clinical correlation required Colonoscopy 2023: There was diffuse colitis throughout the colon examined. There was diffuse congestion and erythema micro ulceration with friability consistent with mild to moderate colitis. Examination was limited to the rectum sigmoid descending and transverse colon due to inflammatory changes. Biopsies were taken with a cold forceps for histology. Review of Systems Review of Systems: All other findings negative except as noted in HPI. Physical Exam Constitutional: WD/WN, vitals as above Respiratory: normal respiratory effort, lungs clear to auscultation Cardiovascular: Rate/Rhythm: regular rate and regular rhythm Gastrointestinal (Abdomen): normal bowel sounds, soft, nontender, no hepatosplenomegaly Skin: no rashes, warm and dry Results & Data Results & Data Vital Signs (Past 12 Hours) Vital Signs Temp Pulse Pulse Resp BP Pulse Ox O2 Del Method 01/06/24 07:35 36.6 C 83 18 117/77 97 Room Air 01/06/24 04:08 36.5 C 72 18 137/68 94 Room Air 01/05/24 23:46 36.6 C 76 16 133/70 96 Room Air 01/05/24 22:40 73 01/05/24 22:37 Room Air PG Care Time/CCT Total # of Minutes Spent Total Time Spent with Patient: Total time spent is greater than 50% in coordination of care (as documented) at patient's floor/unit and/or counseling patient: Coding Level of Care Code 59802 SUB INP/OBS CARE 3/50MIN Diagnoses Intractable diarrhea R19.7
[2024-01-06 09:58] LABS: Hematocrit (blood only) 34.2 % (37.0-47.0); Hemoglobin 11.5 g/dl (12.0-16.0); Mean Corpuscular Hemoglobin 31.7 pg (25.0-34.0); Mean Corpuscular Hgb Conc 33.6 g/dL (32.0-36.0); Mean Corpuscular Volume 94.2 fL (80.0-100.0); Mean Platelet Volume 9.6 fL (9.4-12.4); Platelet Count 531 K/uL (130-400); RDW Coefficient of Variation 14.9 % (11.5-14.5); RDW Standard Deviation 51.8 fL (36.4-46.3); Red Blood Count 3.63 M/uL (4.20-5.40); White Blood Count 12.98 K/ul (4.8-10.8)
[2024-01-06 10:01] LABS: Estimated Average Glucose 111 mg/dl; Hemoglobin A1C 5.5 % (4.5-5.6)
--- NOTE | 2024-01-06 16:06 | Hospitalist Progress Note ---
Date of Service January 06, 2024 Assessment & Plan (1) Pancolitis: Plan: Possible Toxic gastroenteritis/Colitis due to chemo Patient reported to ED on 12/29 with complaints of nausea, vomiting, and abdominal pain. CTAP: nonspecific pancolitis, heterogeneity along hepatic margin with 4.4cm focus of lobular irregularity. could represent post surgical changes, recurrent/residual lesion not excluded - etiology: chemotherapy side effect vs viral infx CTA:no acute abnormality and in particular no evidence of PE Last chemotherapy 12/16. actively follows with oncology - Dr. Michael Lion diff and GI Panel negative 12/30 Fecal calprotectin and pancreatic elastase pending IVF - recieved 7+L on admission, tolerating PO intake. since discontinued Probiotic, IV PPI daily PRN [facility] consulted 12/31, appreciate recommendations colonoscopy 01/03 - diffuse colitis, limited exam due to inflammatory changes. Biopsy from colonoscopy: active chronic colitis with ulceration, crypt abscesses and architectural distortion Methylprednisone BID IV while admitted - transition to prednisone 40mg x2 weeks, then taper by 5mg weekly screen for TB, Hep A igG/igM, and Hep B igG/igM pending Diet advanced to low fiber/residue for lunch Mag and K replaced 01/02 and stable Fasting blood sugars have been elevated on AM chemistries - hgbA1c 5.5 Plan Mental health: continue Zoloft, doxepin on hold History of right vertebral artery dissection, fibromuscular dysplasia-Home aspirin is on hold. Is to have follow-up carotid artery duplex in 03/2024 with vascular surgery at [facility] DVT prophylaxis: SCD's Disposition: continued inpatient stay, hopeful discharge tomorrow Admission and Anticipated Discharge Date Admission Date: December 30, 2023 Supervising Physician Co-Signing Physician Notes PA Supervision Note: I did not personally see or examine the patient today, but I verified all cooper points of ALEXANDRE Stubbs's assessment and plan with the following exceptions/additions: None Subjective patient sitting up in the chair, seen prior to lunch pain is worse than yesterday but manageable making it to the bathroom now stools still very liquid tolerating steroids tele - SR 70s Review of Systems Review of Systems: All systems reviewed & are unremarkable except as noted in Subjective Physical Exam Physical Exam: General: NAD, VS as above Resp: normal respiratory effort, lungs clear to auscultation CV: RRR, no murmur, Abd: normal bowel sounds, tender to palpation Extremities: Moves all extremities, no edema Neuro: A&O x3, Skin: intact, no lesions noted Results & Data Results & Data Vital Signs (Past 12 Hours) Vital Signs Temp Pulse Pulse Resp BP Pulse Ox O2 Del Method 01/06/24 15:43 36.7 C 87 18 126/77 96 Room Air 01/06/24 12:36 71 01/06/24 11:11 36.9 C 75 18 130/79 97 Room Air 01/06/24 07:35 36.6 C 83 18 117/77 97 Room Air 01/06/24 04:08 36.5 C 72 18 137/68 94 Room Air Laboratory Results CBC reviewed hgb a1c reviewed PG Care Time/CCT Total # of Minutes Spent Total Time Spent with Patient: Total time spent is greater than 50% in coordination of care (as documented) at patient's floor/unit and/or counseling patient: Coding Level of Care Code 20582 SUB INP/OBS CARE 2/35MIN Diagnoses Pancolitis K51.00
[2024-01-07 07:24] VITALS: PULSE 73
[2024-01-07 07:54] VITALS: BP 124/83; RESP 18; TEMP 98.1; O2SAT 94
--- NOTE | 2024-01-07 10:37 | Gastroenterology Progress Note ---
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 CT imaging showing pancolitis, stool biofire and c.diff are negative, fecal elastase and calprotectin are pending. Colonoscopy in 2020 w/ proctitis. Repeat colonoscopy with diffuse congestion and erythema micro ulceration with friability consistent with mild to moderate colitis, biopsies worrisome for inflammatory bowel disease. Continue dairy free, low residue diet as tolerated Continue IV steroids while admitted Transition to oral steroid taper at discharge - 40 mg once daily for 2 weeks, then decrease by 5 mg weekly Her oncology team is through [facility] and she may prefer to follow with [facility] as Dr. Wiggins is locum staff Please screen for TB, Hepatitis A IGM/IGG, Hepatitis B IGM/IGG Follow fecal elastase and calprotectin I spent a total of 55 minutes on the date of service in review of patient's record, and previously obtained information in person and appropriate medical visit, discussion and education of plan, with patient and/or caregiver, placing orders for tests/referral/procedures as medically necessary and documentation of pertinent clinical information in patient's medical records for their visit today.Thank you for allowing us to participate in the care of this patient. Please call with any acute changes, questions or concerns. Please see addendum below with additional recommendation from my supervising physician. Admission and Anticipated Discharge Date Admission Date: December 30, 2023 Supervising Physician Co-Signing Physician Notes I saw and examined this patient with our nurse practitioner and agree with her assessment and plan. Still with diarrhea showing some signs of improvement. Abdominal exam reveals some mild lower abdominal tenderness no rebound no guarding. Discharge today on prednisone 40 mg daily and will add back cholestyramine 4 g at bedtime for symptomatic relief. She will follow-up with [facility] as an outpatient. Subjective Has not been keeping track of BMs but notes two very urgent stools. No black or bloody stools. She does think for ease of continuity of care she would prefer to be followed by [facility] given her oncology and surgical team is based out of [facility]. Hep A/B sent off Quant gold sent off Review of Systems Review of Systems: All other findings negative except as noted in HPI. Physical Exam Constitutional: WD/WN, vitals as above Respiratory: normal respiratory effort, lungs clear to auscultation Cardiovascular: Rate/Rhythm: regular rate and regular rhythm Gastrointestinal (Abdomen): Inspection/Auscultation: normal bowel sounds Percussion/Palpation: + abdomen tender and abdomen soft; no guarding and abdomen not rigid Skin: no rashes, warm and dry Results & Data Results & Data Vital Signs (Past 12 Hours) Vital Signs Temp Pulse Pulse Resp BP Pulse Ox O2 Del Method 01/07/24 08:07 Room Air 01/07/24 07:53 36.7 C 73 18 124/83 94 Room Air 01/07/24 07:23 73 01/07/24 04:27 36.4 C L 77 14 127/76 96 Room Air 01/06/24 23:36 36.4 C L 78 16 134/76 96 Room Air PG Care Time/CCT Total # of Minutes Spent Total Time Spent with Patient: Total time spent is greater than 50% in coordination of care (as documented) at patient's floor/unit and/or counseling patient: Coding Level of Care Code 71424 SUB INP/OBS CARE 3/50MIN Diagnoses Intractable diarrhea R19.7
[2024-01-07 10:46] LABS: Hepatitis A Antibody IgM NON-REACTIVE (NON-REACTIVE); Hepatitis A Antibody Total REACTIVE (NON-REACTIVE); Hepatitis B Core Antibody IgM NON-REACTIVE (NON-REACTIVE)
--- NOTE | 2024-01-07 11:12 | Discharge Summary ---
Discharge Summary Date of Service January 07, 2024 Principal Dx & Hospital Course #1 = Principal Diagnosis (1) Pancolitis: Possible Toxic gastroenteritis/Colitis due to chemo Patient reported to ED on 12/29 with complaints of nausea, vomiting, and abdominal pain. CTAP: nonspecific pancolitis, heterogeneity along hepatic margin with 4.4cm focus of lobular irregularity. could represent post surgical changes, recurrent/residual lesion not excluded - etiology: chemotherapy side effect vs viral infx CTA:no acute abnormality and in particular no evidence of PE Last chemotherapy 12/16. actively follows with oncology - Dr. Michael Lion diff and GI Panel negative 12/30 Fecal calprotectin and pancreatic elastase pending IVF - recieved 7+L on admission, tolerating PO intake. since discontinued Probiotic, PPI daily (rx for PO given) PRN [facility] consulted 12/31, appreciate recommendations colonoscopy 01/03 - diffuse colitis, limited exam due to inflammatory changes. Biopsy from colonoscopy: active chronic colitis with ulceration, crypt abscesses and architectural distortion Methylprednisone BID IV while admitted - transition to prednisone 40mg x2 weeks, then taper by 5mg weekly (discharged with first 4 weeks of taper) screen for TB pending Hep A and Hep B igG/igM - no acute infection Referred to [facility] for outpatient follow up Continue low fiber/low residue diet Mag and K replaced 01/02 and stable Fasting blood sugars have been elevated on AM chemistries - hgbA1c 5.5 Plan Mental health: continue Zoloft, doxepin held during admission, can resume on discharge History of right vertebral artery dissection, fibromuscular dysplasia-Home aspirin held, resume on discharge. Is to have follow-up carotid artery duplex in 03/2024 with vascular surgery at [place] Disposition: discharge to home today, outpatient GI and onc follow up Notes For Next Care Provider Stools studies and TB testing pending only the first four weeks of prednisone taper were sent in, so will need new rx if that is going to be continued Medication Changes From Visit [facility] prn steroid taper PPI daily Questran Admission HPI Per Admitting Provider This is a 53-year-old female with unfortunate diagnosis of liver carcinoma who is currently undergoing active chemotherapy treatment last treatment was December 16. Over the last few days to weeks has been having increasing nausea and vomiting and abdominal discomfort with associated diarrhea. She presented to the ER for the above symptomatology for further evaluation and treatment. In the ER laboratory studies revealed mild hypokalemia at 3.3 elevated lactic acid of 2.4 mildly elevated lipase at 233. Specific gravity in the urinalysis was greater than 1.045 but negative for infection. CT of the abdomen pelvis demonstrated pancolitis with a 4.4 cm focus of lobular irregularity in the liver. There is right sided mesenteric lymph nodes noted. Postsurgical changes of right hepatic lobectomy noted. CTA of the chest demonstrated no pulmonary embolism and no acute abnormalities. Course in the ER she received some IV fluids. We are called admit the patient for further evaluation and treatment she also received antiemetics. We will with the patient we will place her on IV Zosyn for her pancolitis. To give her bowel rest for her pancreatitis hydrate her. Protonix for GI prophylaxis. Discharge Exam General: NAD, VS as above Resp: normal respiratory effort, lungs clear to auscultation CV: RRR, no murmur, Abd: normal bowel sounds, mild tenderness but improved from prior days and she allows palpation today Extremities: Moves all extremities, no edema Neuro: A&O x3, Discharge Plan Discharge Items Patient Disposition: Home - Self-Care Reason For Visit: ABD PAIN Discharge Diagnosis: Colitis - ulcerative colitis vs chemotherapy drug reaction Activity: Resume your previous activity Weightbearing: Full weightbearing Non-emergency contact: Primary Care Provider, Digital Experience Manager and Oncologist Call non-emergency contact if: you have any medication questions, your pain is not controlled, your pain is worsening and your temperature is above 101 Follow-up/Referrals: Ibis Dos Santos MD [Primary Care Provider] - 01/14/24 10:20 am () Tegan Luciano MD [Physician] - (colitis - from chemo vs UC, on steroid taper. Follows with Dr. Rodriguez. PLEASE CALL THEIR OFFICE TO SCHEDULE AN APPOINTMENT ) Diet: Low Fiber Addtl Attending Provider Instructions: Ms. Charles, You were hospitalized after abdominal pain that was found to be colitis. You underwent a colonoscopy where a biopsy was taken that had concerns for ulcerati ve colitis. There is also concerns that this was related to your chemotherapy. You have been discharged on a steroid taper, proton pump inhibitor, Bentyl (pain) and Questran. The testing for Hep B and TB is still pending. Hep A testing indicative of prior infection OR immunization. You still have stool studies (calprotectin and Pancreatic elastase) pending. A referral has been placed to Dr. Luciano's office, the information is above. If you do not hear from them by early next week please give them a call. Medication Changes: * Pantoprazole - take one table 30-60 minutes before breakfast. This is PPI to help protect your stomach lining. * Prednisone (steroid) - 40mg once a day for 2 weeks, then decrease by 5 mg every week. I would recommend taking this after eating breakfast - I sent in the first four weeks of this taper, if plans do not change when you see the GI team, the rest of the taper will need to be sent in. * Bentyl - can be taken up to 3 times a day for abdominal pain * Questran - mix this with water and drink in the evening. This is to help with bile acids. Continue a low fiber/low residue diet. I have attached infromation about this below. Medications: Your medication list has been reviewed and reconciled upon discharge to ensure accuracy and continuity of care. An updated list of all your medications is included with your hospital discharge paperwork. Please review this list closely, and make note of any changes. Take your medications as instructed; do not skip a dose of your medicines. Make sure all of your doctors know every medicine you are taking (including axmv-svd-fevhdsg medicines, vitamins, and supplements). Call your primary care provider before taking any new medicines (including over- the-counter medicines, vitamins, and supplements), because some of these may interact with your current medications, or may make your symptoms worse. Tell your primary care provider if you cannot afford your medications. Activity: You can do normal everyday activities as your body allows. Take rest breaks if you feel tired. Do not overexert. Stop activity if you have pain, shortness of breath or feel dizzy. Follow-up appointments: Make an appointment with your primary care physician within one week of discharge. A copy of this summary will be sent to them. Every time you see your primary care physician, or any other doctor, bring your medication list, and a list of questions. CONTACT YOUR PRIMARY CARE PROVIDER if you experience any of the following: Shortness of breath or difficulty breathing Fevers or chills Feeling tired with normal activity or experiencing dizziness or fainting Difficulty following your treatment plan, or difficulty taking medications CALL 911 OR GO TO THE EMERGENCY DEPARTMENT if you experience any of the following: Severe abdominal pain or nausea/vomiting Severe chest pain, or chest pain that radiates (moves) to your jaw or arm Sudden, severe shortness of breath or difficulty breathing Thank you for allowing us to participate in your care. Pending Studies at Discharge: Yes (stool studies, TB and hepatitis testing ) Stand-Alone Forms: [facility], Smoking Cessation Medications and DC Order Prescriptions: New dicyclomine 10 mg Capsule 10 mg PO TID PRN (Reason: abdominal pain) 30 Days Qty: 90 0RF cholestyramine-aspartame [Prevalite] 4 gram Powder In Packet 1 ea PO QPM 30 Days Qty: 30 1RF Rx Instructions: daily at 10pm Advanced Probiotic 625 mg (10 billion cell) Capsule 1 cap PO DAILY Qty: 30 0RF pantoprazole [Protonix] 40 mg tablet,delayed release (DR/EC) 40 mg PO DAILY Qty: 30 1RF Rx Instructions: take 30 minutes before breakfast prednisone 10 mg tablet See Taper PO DIRECTED Qty: 101.5 0RF Taper: Taper, Blank 40 mg DAILY IN THE MORNING for 14 Days 35 mg DAILY IN THE MORNING for 7 Days 30 mg DAILY IN THE MORNING for 7 Days Rx Instructions: see taper instructions Continued sertraline 100 mg tablet 150 mg PO HS Qty: 135 3RF doxepin 10 mg capsule 10 mg PO PM PRN (Reason: insomnia) Qty: 90 3RF aspirin 81 mg capsule 81 mg PO DAILY Qty: 30 0RF Hold Instructions: patient not taking at this time 07/27/2023 Discharge Orders: Discharge Order (Routine); Ordered 01/07/24 Ordered By: Breonna Acevedo/Other Patient Handouts: Prednisone Oral Tablet, Dicyclomine Oral Capsule, Pantoprazole Delayed Release Oral Tablet, Cholestyramine Resin Powder For Oral Suspension, Low-Fiber Diet Admission Data Admit Date/Time: 12/30/23 12:27 Attending Provider: Prema Hilton Admit Provider: Tarik Page Primary Care Provider: Ibis Dos Santos Other Providers: Tarik Page; Angeline Henry; Bebeto Hdz; Ileana Rider; Sybil Hunt; Breonna Alcantara; Doreen Das; Stefanie Esteban; Marky Garcia; Steffi Perla; Tegan Luciano; Anurag Duggan; Taylor Roblero; Marisa Antunez; Leeann Connors; Idania Jade; Bel Wiggins; Evangelist Corley; Shawn Nath; Rosemarie Marcum; Iron Blackmon Jr; Bismark Crandall; Jethro Evans; Diallo Gupta; Adams Ashley; Jessa Lilly; Micheal Wiggins I Other Interventions: Discharge Summary Assessment (RN) Last Done: 01/07/24 11:11 Discharge Summary Assessment (RN) Last Done: 01/04/24 10:46 Hospital Stay Data Consultations 12/30/23 11:58 ED Decision to Admit Stat 01/01/24 08:44 Consult Gastroenterology Routine Procedures Performed Operation Date: 01/04/24 16:30 Actual Procedures p Colonoscopy Biopsy Cytology - Micheal Wiggins MD Diagnostic Imagining Performed Abdomen/Pelvis CT 12/30/23 09:02 CT SCAN OF THE ABDOMEN AND PELVIS WITH IV CONTRAST CLINICAL HISTORY: Lower abdominal pain. COMPARISON STUDY: Abdominal MRI dated 05/11/2023. TECHNIQUE: Following the IV administration of 118 cc of Optiray 320, CT scan of the abdomen and pelvis is performed from the lung bases to the proximal femora. Images are reviewed in the axial, sagittal, and coronal planes. IV contrast was administered without complication. A dose lowering technique was utilized adhering to the principles of ALARA. FINDINGS: Lung bases: The heart is normal in size and without pericardial effusion. The lung bases are clear. Liver: There is postsurgical change from right hepatic lobe resection with heterogeneity along the resection margin. A 4.4 cm residual right lobe lesion is not excluded on image #54. The contrast-enhanced liver is normal in size, contour, and attenuation. There is no intrahepatic biliary ductal dilatation. The hepatic veins and portal veins are patent. Gallbladder: Unremarkable. Spleen: Normal in size and attenuation. Pancreas: Unremarkable. Adrenal glands: Unremarkable. Kidneys: The contrast enhanced kidneys are normal in size and without hydronephrosis. The kidneys enhance symmetrically. A 2 cm cyst is seen on the right. Abdominal vasculature: The abdominal aorta is normal in course and caliber. Bowel: There is diffuse wall thickening throughout the colon with mild edema and mucosal hyperemia. There is minimal surrounding infiltrate formation. No bowel obstruction is seen. The appendix is well-visualized and normal. Peritoneum: There is no intraperitoneal free air or abdominal ascites. Lymphadenopathy: There are numerous mildly enlarged mesenteric lymph nodes in the right upper quadrant to mid abdomen. A access representative node on image #136 measures 1.7 cm in length. There is no retroperitoneal, iliac chain, pelvic sidewall, or inguinal lymphadenopathy. Pelvic viscera: The bladder is decompressed and appears thick-walled. A 9 mm c ystic focus along the bladder dome likely represents a urachal remnant. The uterus and adnexa are normal as imaged. Skeletal structures: There is mild lumbosacral spondylosis. No lytic or blastic lesions are seen. IMPRESSION: 1. There is evidence of a nonspecific pancolitis. Correlate clinically. 2. There is postsurgical change from right lobe hepatic resection. 3. There is heterogeneity along the hepatic resection margin, with a 4.4 cm focus of lobular irregularity. Although this could represent postsurgical change, a recurrent or residual lesion is not excluded. Correlate with any prior postoperative imaging studies. 4. The bladder wall appears thickened. Correlate with clinical findings and urinalysis. 5. There are numerous mildly enlarged right-sided mesenteric lymph nodes. These are pathologically indeterminate and may be reactive. Attention follow-up is recommended. 6. Additional findings as above. ACT 112: Negative or not required by law. Electronically signed by: Jaison Montana M.D. 12/30/2023 10:35 AM Chest CTA 12/30/23 09:02 CT angio chest PE protocol CLINICAL HISTORY: Liver Ca, CP, SOB, tachycardic, PE TECHNIQUE: Multidetector row helical CT of the chest was performed with angiographic protocol. Coronal and sagittal reformations were obtained. Coronal and sagittal MIPS were obtained from the axial data set and were submitted for review. Automated dose lowering techniques and/or adjustment according to patient size were utilized for this exam. CT DOSE: 1520.98 mGy.cm Comparison: Comparison is made to CT chest 03/07/2013 FINDINGS: Lungs and pleura: Normal. Heart and pericardium: Heart size is normal. No pericardial effusion. Vessels: No evidence of pulmonary embolism. Mediastinum and mi: Subcentimeter lymph nodes are seen. Chest wall and lower neck: A right port catheter is seen. Abdomen: For findings below the diaphragm, please refer to CT of the abdomen dated the same. Bones: Degenerative changes in the thoracic spine. IMPRESSION: No acute abnormality and in particular no evidence of pulmonary embolus. ACT 112: Negative or not required by law. Electronically signed by: Tomas Burks M.D. 12/30/2023 10:35 AM Pending Results Patient Have Any Pending Studies at Discharge: Yes (stool studies, TB and hepatitis testing ) Discharge Instructions Given to Patient (Per Discharging Provider) Ms. Charles, Lee were hospitalized after abdominal pain that was found to be colitis. You underwent a colonoscopy where a biopsy was taken that had concerns for ulcerative colitis. There is also concerns that this was related to your chemotherapy. You have been discharged on a steroid taper, proton pump inhibitor, Bentyl (pain) and Questran. The testing for Hep B and TB is still pending. Hep A testing indicative of prior infection OR immunization. You still have stool studies (calprotectin and Pancreatic elastase) pending. A referral has been placed to Dr. Luciano's office, the information is above. If you do not hear from them by early next week please give them a call. Medication Changes: * Pantoprazole - take one table 30-60 minutes before breakfast. This is PPI to help protect your stomach lining. * Prednisone (steroid) - 40mg once a day for 2 weeks, then decrease by 5 mg every week. I would recommend taking this after eating breakfast - I sent in the first four weeks of this taper, if plans do not change whe n you see the GI team, the rest of the taper will need to be sent in. * Bentyl - can be taken up to 3 times a day for abdominal pain * Questran - mix this with water and drink in the evening. This is to help with bile acids. Continue a low fiber/low residue diet. I have attached infromation about this below. Medications: Your medication list has been reviewed and reconciled upon discharge to ensure accuracy and continuity of care. An updated list of all your medications is included with your hospital discharge paperwork. Please review this list closely, and make note of any changes. Take your medications as instructed; do not skip a dose of your medicines. Make sure all of your doctors know every medicine you are taking (including rpsk-vad-ljrpptm medicines, vitamins, and supplements). Call your primary care provider before taking any new medicines (including over- the-counter medicines, vitamins, and supplements), because some of these may interact with your current medications, or may make your symptoms worse. Tell your primary care provider if you cannot afford your medications. Activity: You can do normal everyday activities as your body allows. Take rest breaks if you feel tired. Do not overexert. Stop activity if you have pain, shortness of breath or feel dizzy. Follow-up appointments: Make an appointment with your primary care physician within one week of discharge. A copy of this summary will be sent to them. Every time you see your primary care physician, or any other doctor, bring your medication list, and a list of questions. CONTACT YOUR PRIMARY CARE PROVIDER if you experience any of the following: Shortness of breath or difficulty breathing Fevers or chills Feeling tired with normal activity or experiencing dizziness or fainting Difficulty following your treatment plan, or difficulty taking medications CALL 911 OR GO TO THE EMERGENCY DEPARTMENT if you experience any of the following: Severe abdominal pain or nausea/vomiting Severe chest pain, or chest pain that radiates (moves) to your jaw or arm Sudden, severe shortness of breath or difficulty breathing Thank you for allowing us to participate in your care. Supervising Physician Co-Signing Physician Notes PA Supervision Note: I personally saw and examined the patient. I verified all cooper points and agree with ALEXANDRE Stubbs with the following exceptions and/or additions: S-patient overall feeling much better with less frequent stool and abdominal pains. She feels ready to go home she is tolerating solid foods O- Vitals reviewed Gen: AAOx3, NAD HEENT: Anicteric sclerae, EOMI CV: RRR no mgr nl S1S2 Pulm: CTAB no wcr Abd: +BS soft positive tenderness to palpation in lower abdomen without guarding or rebound, ND no masses or hernias Labs, Rads, and ECG reviewed A/[id number]-old female here with pancolitis and severe diarrhea and abdominal pain which is secondary most likely to checkpoint inhibitor chemotherapy/immunotherapy induced colitis versus ulcerative colitis On prednisone taper as per GI and needs follow-up with GI Follow-up with oncology to discuss future cancer treatment plans Take PPI with high-dose prednisone to prevent peptic ulcer disease TB and hepatitis studies pending-recommended by GI to check these but doubtful she will be started on any biologic drugs for IBD given that she has active cancer Total Time Total Time Spent Total Time Spent (In Minutes): Time spent day of discharge 40 minutes including direct patient care, medication reconciliation, documentation, review of labs and images, and coordination of care. Discussed case with SUAD Vazquez ARIANNA Coding Level of Care Code 75472 INP/OBS DISCH >30 MIN Diagnoses Pancolitis K51.00
== END 2024-01-07 13:47 | disposition home or self-care (01) | DRG 393 ==
LOC: ED 08:22 → 2W 12:27 → SUATTDRO 12:27 → 2W 14:41
DX: K90.9 Intestinal malabsorption, unspecified; E03.9 Hypothyroidism, unspecified; K52.1 Toxic gastroenteritis and colitis; Z88.5 Allergy status to narcotic agent; E86.0 Dehydration; K51.90 Ulcerative colitis, unspecified, without complications; K85.90 Acute pancreatitis without necrosis or infection, unspecified; F32.A Depression, unspecified; E87.20 Acidosis, unspecified; K29.70 Gastritis, unspecified, without bleeding; K21.9 Gastro-esophageal reflux disease without esophagitis; Z83.3 Family history of diabetes mellitus; Y92.019 Unspecified place in single-family (private) house as the place of occurrence of the external cause; C22.1 Intrahepatic bile duct carcinoma; T45.1X5A Adverse effect of antineoplastic and immunosuppressive drugs, initial encounter; E87.6 Hypokalemia; Z88.1 Allergy status to other antibiotic agents